=== PATIENT | female | born 1990 | race Caucasian/White ===

== ENCOUNTER → 2019-07-05 09:00 | Outpatient (CLI) | payer OTHER, SELFPAY ==
[2019-07-04 10:25] VITALS: BMI 46.4
[2019-07-05 11:14] LABS: Cholesterol 158 mg/dL (200); Estradiol 37.2 pg/mL; Glucose 80 mg/dL (74-106); High Density Lipoprotein 43 mg/dL; Prolactin 6.8 ng/mL; Thyroid Stim Hormone (TSH) 1.79 uIU/mL (0.358-3.74); Triglycerides 83 mg/dL; Very Low Density Lipoprotein 17 mg/dL (5-40)
== END ==
PROVIDERS: Family Provider Family Medicine; PCP Family Medicine; Referring Provider Nurse Practitioner Women's Health; Visit Provider Nurse Practitioner Women's Health
DX: N97.0 Female infertility associated with anovulation (principal); E66.9 Obesity, unspecified
CPT/HCPCS: 36415; 80061; 82670; 82947; 83036; 84146; 84443

== ENCOUNTER → 2019-07-25 14:04 | Outpatient (CLI) | payer OTHER, SELFPAY ==
[2019-07-25 13:32] VITALS: BMI 46.4
[2019-07-29 16:45] LABS: HPV Reflexed? NOT INDICATED
== END ==
PROVIDERS: Family Provider Family Medicine; PCP Family Medicine; Referring Provider Nurse Practitioner Women's Health; Visit Provider Nurse Practitioner Women's Health
DX: Z12.4 Encounter for screening for malignant neoplasm of cervix (principal)
CPT/HCPCS: 88175; G0145

== ENCOUNTER 2019-08-24 06:53 | Emergency (ER) | payer OTHER, SELFPAY ==
[2019-07-25 13:32] VITALS: BMI 46.4
[2019-08-24 06:54] VITALS: BP 140/102; PULSE 96; RESP 16; TEMP 36.8; O2SAT 100; BMI 45.9
--- NOTE | 2019-08-24 07:05 | US_ITS ---
STUDY: FIRST TRIMESTER OBSTETRICAL ULTRASOUND REASON FOR EXAM: Female, 28 years old bleeding, LMP: 07/03/2019 TECHNIQUE: Transvaginal TECHNICAL QUALITY: Limited. Technically limited study with suboptimal measurements. PRIOR ULTRASOUND: None. FINDINGS: Gestational sac measures 5.2 x 7.6 x 4.9 mm. A computer-generated gestational age is not provided. There is a visualized yolk sac. The yolk sac measures . The placenta is non-visualized. A live embryo was not visualized. A pole is not seen. The estimated gestation age (EGA) by LMP is 7 weeks, 3 days. The estimated date of delivery (THAD) by LMP is 04/08/2020. The uterus measures 8.9 x 5.0 x 5.0 cm.. There is no demonstrated uterine fibroid. The cervix is closed. The right ovary measures 2.8 x 2.8 x 2.0 cm. Is a right ovarian cyst measuring 1.5 x 1.5 x 1.2 cm . There is no visualized right adnexal mass or complex lesion. The left ovary is nonvisualized. There is a adjacent focal area of low-attenuation measuring 0.7 x 0.5 cm adjacent to the gestational sac compatible with small subchorionic hemorrhage. There is minimal fluid in the cul de sac. US/Transvaginal w/Preg US IMPRESSION: Technically limited, Limited study, limited measurements. Within the uterus there is a intrauterine early gestational sac present some with early without yolk sac yet. The location is slightly low lying.. There is a trace focus of echogenicity within the gestational sac. Recommend follow-up in 5-7 days or as clinically appropriate to evaluate for viability. Corporal luteal right ovarian cyst. Small subchorionic hemorrhage. Electronically Signed: Tamie Simpson MD at 11:02 EST Tel , Service support ,
--- NOTE | 2019-08-24 07:07 | ED.DCSUM_ITS ---
- ER Visit Summary Date of Service: 08/24/19 Chief Complaint: [Vaginal bleeding] History of Present Illness: The patient is a 28 F [presents with complaint of vaginal bleeding that started initially last evening with some mild spotting. Patient states this morning she had heavier bright red bleeding with a bout a quarter sized clot. She describes just a minimal suprapubic discomfort. She denies urinary symptoms. She denies fever. Patient thinks she is about 7 weeks . Patient believes her last menstrual period was July 03. Patient is G1, P0. She has not had any care. Patient has been taking folic acid and vitamins. Patient does have a seizure disorder and is c urrently on Keppra.] Physical Examination: [HEENT-PERRLA, EOMI. Cranial nerves II through XII grossly intact. TMs clear. Mucous membranes moist. No adenopathy. Cardiovascular-regular rate and rhythm without murmur or ectopy Lungs-clear to auscultation, chest wall stable without crepitus or subcu emphysema Abdomen-normoactive bowel sounds, soft. Patient has some mild tenderness over the suprapubic region. There is no rebound, rigidity, or peritoneal signs. Extremities-intact ?4, normal range of motion, normal pulses, atraumatic] Test Results: [CBC with differential white of 8.9, hemoglobin 12.7, hematocrit 40, platelets 220. Urinalysis was normal. Quantitative hCG was 1571. Type and Rh was A+. Pelvic ultrasound obtained showed an intrauterine gestation however no pole seen. There is minimal fluid in the cul-de-sac.] Emergency Department Course and Treatment: [Patient had an IV line established on arrival. Case was discussed with Dr. Arias Ybarra] who asked that patient follow-up with your office for repeat quantitative hCG in 48 hours and office visit within the next 3 to 5 days. Treatment Plan: [Follow-up with [facility] and repeat quant in 48 hours. I advised patient on bleeding precautions and if she should go through more than 2 pads an hour for 2 consecutive hours or if she should become symptomatic in any way patient to return to the emergency department.] Disposition: [Discharged home in stable condition.] Impression: [Threatened First trimester bleeding] This note was generated with [employer] software. It may contain incorrect words, spelling, and punctuation that were not noted in review of the chart prior to signing ED Disposition - Plan for ED Patient: Referrals: Beatriz De La Garza MD [Primary Care Provider] -
[2019-08-24] MEDS: 0.9% Normal Saline 1,000 ML 150 ML IV (07:46)
[2019-08-24 07:51] LABS: Bacteria 0 SEEN /hpf (None Seen); Mucous, Urine 0 SEEN /hpf (<or=2+); White Blood Cells 0 SEEN /hpf (0-5)
[2019-08-24 07:52] LABS: Color, Urine Yellow (Yellow); Glucose, Dipstick Normal (Normal); Ketone-Dipstick Negative (Negative); Leukocyte Esterase-Dipstick Negative /ul (Negative); Nitrite-Dipstick Negative (Negative); Occult Blood-Urine 250 /ul (Negative); Protein-Dipstick Negative (Negative); Specific Gravity, Urine 1.005 (1.002-1.030); Urine Bilirubin Dipstick Negative (Negative); Urine Clarity Clear (Clear); Urine Urobilinogen Normal (Normal)
[2019-08-24 08:02] LABS: Red Blood Cells-Urine 0-5 SEEN /hpf (0-5); Squamous Epithelial Cells - UA 0-5 SEEN /hpf (5-10)
[2019-08-24 08:27] LABS: Absolute Lymphocyte Count 1.77 X10^3/uL (0.83-4.51); Absolute Neutrophil Count 6.6 X10^3/uL (2.0-7.7); Basophil# 0.03 X10^3/uL; Basophil% 0.3 % (0-1); Eosinophil# 0.13 X10^3/uL; Eosinophils% 1.5 % (0-5); Hemoglobin 12.7 g/dL (12.0-15.0); Lymphocyte # 1.77 X10^3/ul (4.0); Lymphocyte % 19.9 % (19-41); Mean Corp Hgb Conc 31.8 g/dL (32-36); Mean Corpuscular Hgb 26.8 pg (27.0-32.0); Mean Corpuscular Volume 84.4 fL (81-99); Mean Platelet Vol. 10.8 fl (6.2-12.0); Monocyte# 0.36 X10^3/uL; Monocyte% 4.1 % (0-10); NRBC Flagged by Analyzer 0 % (0-5); Neutrophil # 6.57 X10^3/uL (2.7-7.7); Platelet Count 220 K/mm3 (150-450); RBC Distribution Width SD 45.6 fl (35.1-43.9); Red Blood Count 4.74 M/mm3 (4.2-5.4); White Blood Count 8.9 K/mm3 (4.4-11.0)
[2019-08-24 09:16] LABS: hCG Titer Quant., Serum 1571 mIU/mL (1-3)
--- NOTE | 2019-08-24 10:40 | ED.DEP ---
ED Disposition - Plan for ED Patient: Instructions: POSSIBLE MISCARRIAGE (Threatened ) Referrals: Beatriz De La Garza MD [Primary Care Provider] - Ariadne Luz MD [STAFF PHYSICIAN] - 3-5 Days
== END 2019-08-24 10:52 | disposition home or self-care (01) ==
LOC: ED 07:10
PROVIDERS: Emergency Provider Emergency Medicine; Family Provider Family Medicine; PCP Family Medicine
DX: O20.0 Threatened abortion (principal); Z3A.01 Less than 8 weeks gestation of pregnancy; O99.351 Diseases of the nervous system complicating pregnancy, first trimester; G40.909 Epilepsy, unspecified, not intractable, without status epilepticus
CPT/HCPCS: 76817; 81001; 84702; 85025; 86900; 86901; 99283; J7030; A4216

== ENCOUNTER → 2019-08-26 16:24 | Outpatient (CLI) | payer OTHER, SELFPAY ==
[2019-08-24 06:54] VITALS: BMI 45.9
[2019-08-26 18:07] LABS: hCG Titer Quant., Serum 162 mIU/mL (1-3)
== END ==
PROVIDERS: Family Provider Family Medicine; PCP Family Medicine; Referring Provider Nurse Practitioner Women's Health; Visit Provider Nurse Practitioner Women's Health
DX: O20.0 Threatened abortion (principal)
CPT/HCPCS: 36415; 84702

== ENCOUNTER → 2019-09-05 11:40 | Outpatient (CLI) | payer OTHER, SELFPAY ==
[2019-08-24 06:54] VITALS: BMI 45.9
[2019-09-05 13:21] LABS: hCG Titer Quant., Serum 3 mIU/mL (1-3)
== END ==
PROVIDERS: Family Provider Family Medicine; PCP Family Medicine; Referring Provider Nurse Practitioner Women's Health; Visit Provider Nurse Practitioner Women's Health
DX: O03.9 Complete or unspecified spontaneous abortion without complication (principal)
CPT/HCPCS: 36415; 84702

== ENCOUNTER → 2019-09-15 15:28 | Outpatient (CLI) | payer OTHER, SELFPAY ==
[2019-09-15 15:03] VITALS: BMI 45.9
[2019-09-22 20:07] LABS: Dilute Prothrombin Time (dPT) 42.1 sec (0.0-55.0); Dilute Russell Viper Venom 37.9 sec (0.0-47.0); PTT-LA 40.2 sec (0.0-51.9); Protein C Antigen 82 % (60-150); Protein C, Functional 95 % (73-180); Thrombin Time 15.9 sec (0.0-23.0); dPT Confirm Ratio 1.15 Ratio (0.00-1.40)
[2019-09-22 20:48] LABS: Antithrombin 3 Function 81 % (75-135); Interpretation Comment: (.); Protein S, Free 77 % (57-157); Protein S, Funtional 65 % (63-140); Protein S, Total 100 % (60-150)
== END ==
PROVIDERS: Family Provider Family Medicine; PCP Family Medicine; Referring Provider Nurse Practitioner Women's Health; Visit Provider Nurse Practitioner Women's Health
DX: Z86.718 Personal history of other venous thrombosis and embolism (principal)
CPT/HCPCS: 36415; 81241; 85300; 85302; 85303; 85305; 85306

== ENCOUNTER → 2019-11-28 12:39 | Outpatient (CLI) | payer OTHER, SELFPAY ==
[2019-09-15 15:03] VITALS: BMI 45.9
--- NOTE | 2019-11-28 12:45 | CT_ITS ---
STUDY: CT BRAIN AND SINUSES WITHOUT CONTRAST REASON FOR EXAM: Female, 29 years old. SINUSITIS, LEFT SIDE SINUS CONGESTION RADIATION DOSAGE (If Supplied By Facility): CTDIvol = ( 33.06 ) mGy, DLP = ( 738.81 ) mGycm TECHNIQUE: Transaxial CT imaging of the brain was performed without administration of contrast. Individualized dose optimization techniques were used for this CT. COMPARISON: No relevant priors. FINDINGS: CT BRAIN Normal soft tissue structures. Normal calvarium. Normal size ventricles and extra-axial spaces for the patient''s age. Normal white matter tracts of the cerebral hemispheres. Normal basal ganglia and thalami. Normal brainstem. Normal cerebellum. There is no intracranial hemorrhage. There are no findings of an acute ischemic infarction. CT SINUSES Post Surgical Changes: None. Frontal Sinus and Recess: Normal aeration without mucosal inflammatory disease. Ethmoidal Sinuses: Normal aeration without mucosal inflammatory disease. Maxillary Sinuses: There is a 2.1 cm x 1.7 cm mucosal retention cyst or polyp in the inferior aspect of the right maxillary sinus. Partial opacification of the left maxillary sinus posteriorly with an air-fluid level. Ostiomeatal Complex: Partial obstruction of the ostiomeatal complex on the right side due to mucosal hypertrophy. Sphenoid Sinus: Mild mucosal thickening along the left sphenoid sinus. Sphenoethmoidal Recess: Clear. Nasal Turbinate (Right): Middle Turbinate (Right): Normal. Middle Turbinate (Left): Normal. Inferior Turbinate (Right): Normal. Inferior Turbinate (Left): Normal. Nasal Septum: Midline. Nasal Airway: Clear. Cri biform Plate / Anterior Cranial Fossa: Normal. Orbits: Normal. CT/Sinus/Facial Bone IMPRESSION: Mucosal retention cyst/polyp in the right maxillary sinus with the air-fluid level in the left maxillary sinus. Mucosal thickening of the left sphenoid sinus. Compromise of the right ostomy to contact you to mucosal hypertrophy. Electronically Signed: Nicholas Pichardo, at 13:08 EST , Service support ,
== END ==
PROVIDERS: PCP Family Medicine; Referring Provider Otolaryngology; Visit Provider Otolaryngology
DX: J32.9 Chronic sinusitis, unspecified (principal)
CPT/HCPCS: 70486

== ENCOUNTER 2020-02-16 20:59 | Emergency (ER) | payer BC, SELFPAY ==
[2019-12-21 13:25] VITALS: BMI 45.9
[2020-02-16 21:00] VITALS: BP 119/82; PULSE 78; RESP 15; TEMP 36.6; O2SAT 98; BMI 46.8
--- NOTE | 2020-02-16 21:11 | ED.VISSUMM ---
- ER Visit Summary Date of Service: 02/16/20 Chief Complaint: Laceration History of Present Illness: The patient is a 29 F right-hand dominant. Cut the tip off her right small finger. Tetanus is up-to-date. Physical Examination: Small avulsion, 3 mm, round Test Results: None performed Emergency Department Course and Treatment: Wound was cleaned. Gelfoam applied. Wound care instructions. Outpatient follow-up. Treatment Plan: As above Disposition: Discharge Impression: Right small fingertip avulsion This note was generated with [employer] dictation software. It may contain incorrect words, spelling, and punctuation that were not noted in review of the chart prior to signing ED Disposition - Plan for ED Patient: Referrals: Beatriz De La Garza MD [Primary Care Provider] -
--- NOTE | 2020-02-16 21:13 | ED.DEP ---
ED Disposition - Plan for ED Patient: Instructions: ED Scar Tips to Minimize Referrals: Beatriz De La Garza MD [Primary Care Provider] -
[2020-02-16] MEDS: Gelatin Sponge Absorbable 50cm (1) 1 EACH TP (21:14)
== END 2020-02-16 21:22 | disposition home or self-care (01) ==
LOC: ED 21:09
PROVIDERS: Emergency Provider Emergency Medicine; PCP Family Medicine
DX: S61.306D Unspecified open wound of right little finger with damage to nail, subsequent encounter (principal); W45.8XXD Other foreign body or object entering through skin, subsequent encounter
CPT/HCPCS: 99282

== ENCOUNTER → 2020-05-11 17:32 | Outpatient (CLI) | payer BC, SELFPAY ==
[2020-05-10 10:27] VITALS: BMI 46.8
[2020-05-11 18:27] LABS: Progesterone Level 13.59 ng/mL (See Comment)
== END ==
PROVIDERS: Nurse Practitioner Women's Health; PCP Family Medicine; Referring Provider Obstetrics & Gynecology; Visit Provider Obstetrics & Gynecology
DX: N92.0 Excessive and frequent menstruation with regular cycle (principal)
CPT/HCPCS: 36415; 84144

== ENCOUNTER → 2020-05-17 10:58 | Outpatient (CLI) | payer BC, SELFPAY ==
[2020-05-10 10:27] VITALS: BMI 46.8
--- NOTE | 2020-05-17 11:01 | US_ITS ---
STUDY: ULTRASOUND OF THE FEMALE PELVIS - COMPLETE REASON FOR EXAM: Female, 29 years old. MENORRHAGIA LMP: 04/23/2020. TECHNIQUE: Transabdominal and Transvaginal TECHNICAL QUALITY: Adequate. COMPARISON: Comparison is made with prior study 08/24/2019. FINDINGS: The uterus is anteverted and is tilted to the left side of the pelvis. The uterus measures 9.1 cm x 6 cm x 5.1 cm. There is a Nabothian cyst of the cervix. The endometrium is thickened and measures 17 mm in thickness, and is hyperechoic. There is no demonstrated endometrial mass. There is no demonstrated myometrial mass. I.U.D. - The patient does not have an I.U.D. The right ovary is visualized. The right ovary measures 3.2 cm x 3 cm x 2.2 cm. There is no right ovarian cyst or ovarian mass. There is no visualized right adnexal mass or complex lesion. There is normal arterial and normal venous vascularity. The left ovary is non-visualized. There is no fluid in the cul-de-sac. The pre void volume of the bladder was 779 ml. US/Transvaginal Non- IMPRESSION: Thickened endometrium. Electronically Signed: Nicholas Pichardo, at 14:51 EDT , Service support ,
--- NOTE | 2020-05-17 11:01 | US_ITS ---
STUDY: ULTRASOUND OF THE FEMALE PELVIS - COMPLETE REASON FOR EXAM: Female, 29 years old. MENORRHAGIA LMP: 04/23/2020. TECHNIQUE: Transabdominal and Transvaginal TECHNICAL QUALITY: Adequate. COMPARISON: Comparison is made with prior study 08/24/2019. FINDINGS: The uterus is anteverted and is tilted to the left side of the pelvis. The uterus measures 9.1 cm x 6 cm x 5.1 cm. There is a Nabothian cyst of the cervix. The endometrium is thickened and measures 17 mm in thickness, and is hyperechoic. There is no demonstrated endometrial mass. There is no demonstrated myometrial mass. I.U.D. - The patient does not have an I.U.D. The right ovary is visualized. The right ovary measures 3.2 cm x 3 cm x 2.2 cm. There is no right ovarian cyst or ovarian mass. There is no visualized right adnexal mass or complex lesion. There is normal arterial and normal venous vascularity. The left ovary is non-visualized. There is no fluid in the cul-de-sac. The pre void volume of the bladder was 779 ml. US/Pelvic (Non ) IMPRESSION: Thickened endometrium. Electronically Signed: Nicholas Pichardo, at 14:51 EDT , Service support ,
== END ==
PROVIDERS: PCP Family Medicine; Referring Provider Nurse Practitioner Women's Health; Visit Provider Nurse Practitioner Women's Health
DX: N92.0 Excessive and frequent menstruation with regular cycle (principal)
CPT/HCPCS: 76830; 76856

== ENCOUNTER → 2020-06-01 17:14 | Outpatient (CLI) | payer BC, SELFPAY ==
[2020-05-10 10:27] VITALS: BMI 46.8
== END ==
PROVIDERS: PCP Family Medicine
DX: G40.319 Generalized idiopathic epilepsy and epileptic syndromes, intractable, without status epilepticus (principal)
CPT/HCPCS: 36415; 80177

== ENCOUNTER → 2020-06-28 17:12 | Outpatient (CLI) | payer BC, SELFPAY ==
[2020-06-28 15:02] VITALS: BMI 44.1
[2020-06-28 17:44] LABS: Absolute Lymphocyte Count 2.75 X10^3/uL (0.83-4.51); Absolute Neutrophil Count 9.4 X10^3/uL (2.0-7.7); Basophil# 0.03 X10^3/uL; Basophil% 0.2 % (0-1); Eosinophils% 1.5 % (0-5); Hematocrit 38.1 % (37-47); Hemoglobin 12.4 g/dL (12.0-15.0); Lymphocyte # 2.75 X10^3/ul (4.0); Lymphocyte % 21.3 % (19-41); Mean Corp Hgb Conc 32.5 g/dL (32-36); Mean Corpuscular Hgb 28.1 pg (27.0-32.0); Mean Corpuscular Volume 86.2 fL (81-99); Mean Platelet Vol. 10.8 fl (6.2-12.0); Monocyte# 0.52 X10^3/uL; NRBC Flagged by Analyzer 0 % (0-5); Neutrophil % 72.7 % (47-70); Platelet Count 239 K/mm3 (150-450); RBC Distribution Width CV 14.2 % (11.6-14.6); RBC Distribution Width SD 44.4 fl (35.1-43.9); Red Blood Count 4.42 M/mm3 (4.2-5.4); White Blood Count 12.9 K/mm3 (4.4-11.0)
[2020-06-28 18:38] LABS: Amphetamine Urine VISTA NEGATIVE (<1000 ng/mL); Barbiturate Urine VISTA NEGATIVE (< 200 ng/mL); Benzodiazepine Urine VISTA NEGATIVE (< 200 ng/mL); Cocaine Urine VISTA NEGATIVE (< 300 ng/mL); Ecstacy Urine VISTA NEGATIVE (< 500 ng/mL); Methadone Urine VISTA NEGATIVE (< 300 ng/mL); PCP Urine VISTA NEGATIVE (< 25 ng/mL); THC Urine VISTA NEGATIVE (< 50 ng/mL); Vista UDS pH Range 4
[2020-06-28 19:38] LABS: Glucose Challenge Gest 1H 50g 103 mg/dL (70-140)
[2020-06-29 09:45] LABS: HIV - WCH Non-Reactive (Nonreactive); Hepatitis B Surface Antigen Non-Reactive (Nonreactive); Hepatitis C Antibody Non-Reactive (Nonreactive); Rubella IgG 274.6 IU/mL
[2020-07-01 03:07] LABS: Chlamydia By Nucleic Acid AMP Negative (Negative)
[2020-07-01 04:31] LABS: Rapid Plasmin Reagin (RPR) NONREACTIVE (NONREACTIVE)
[2020-07-01 08:24] LABS: Gonococcus By Nucleic Acid AMP Negative (Negative)
== END ==
PROVIDERS: PCP Family Medicine; Referring Provider Obstetrics & Gynecology; Visit Provider Obstetrics & Gynecology
DX: G40.309 Generalized idiopathic epilepsy and epileptic syndromes, not intractable, without status epilepticus (principal)
CPT/HCPCS: 36415; 80177; 80307; 82950; 85025; 86592; 86703; 86762; 86803; 86850; 86900; 86901; 87086; 87088; 87340; 87491; 87591

== ENCOUNTER → 2020-07-12 11:00 | Outpatient (CLI) | payer BC, SELFPAY ==
[2020-06-28 15:02] VITALS: BMI 44.1
[2020-07-12 12:08] LABS: NATERA MAILED SPECIMEN
== END ==
PROVIDERS: PCP Family Medicine; Referring Provider Obstetrics & Gynecology; Visit Provider Obstetrics & Gynecology
DX: Z34.81 Encounter for supervision of other normal pregnancy, first trimester (principal)
CPT/HCPCS: 36415

== ENCOUNTER → 2020-08-06 17:12 | Outpatient (CLI) | payer BC, SELFPAY ==
[2020-07-26 13:13] VITALS: BMI 44.1
== END ==
PROVIDERS: PCP Family Medicine
DX: G40.319 Generalized idiopathic epilepsy and epileptic syndromes, intractable, without status epilepticus (principal)
CPT/HCPCS: 36415; 80177

== ENCOUNTER 2020-08-24 17:22 | Outpatient (RCR) | payer BC, SELFPAY ==
[2020-08-23 10:07] VITALS: BMI 43.8
[2020-08-30 04:21] LABS: KEPPRA (LEVETIRACETAM) 16.2 ug/mL (10.0-40.0)
== END 2020-08-24 18:00 | disposition home or self-care (01) ==
LOC: LAB 17:22
PROVIDERS: PCP Family Medicine
DX: G40.309 Generalized idiopathic epilepsy and epileptic syndromes, not intractable, without status epilepticus (principal)
CPT/HCPCS: 36415; 80177

== ENCOUNTER 2020-09-22 17:35 | Outpatient (RCR) | payer BC, SELFPAY ==
[2020-08-23 10:07] VITALS: BMI 43.8
[2020-09-20 10:48] VITALS: BMI 44.9
[2020-09-25 15:00] LABS: KEPPRA (LEVETIRACETAM) 13.2 ug/mL (10.0-40.0)
== END 2020-09-22 18:00 | disposition home or self-care (01) ==
LOC: LAB 17:35
PROVIDERS: PCP Family Medicine
DX: G40.309 Generalized idiopathic epilepsy and epileptic syndromes, not intractable, without status epilepticus (principal)
CPT/HCPCS: 36415; 80177

== ENCOUNTER → 2020-10-18 11:19 | Outpatient (CLI) | payer OTHER, SELFPAY ==
[2020-10-18 10:10] VITALS: BMI 45.6
--- NOTE | 2020-10-18 11:29 | VDLE_ITS ---
Reason For Study: LLE pain RIGHT LEFT CFV is compressible, spontaneous, phasic, GSV is normal. competent and demonstrates normal CFV is compressible, spontaneous, phasic, augmentation. competent, and demonstrates normal Procedure augmentation. This is a venous duplex using B-mode, color FV is compressible, spontaneous, phasic, flow and spectral Doppler. competent and demonstrates normal Exam performed in department. augmentation. The exam was diagnostic. POP V is compressible, spontaneous, phasic, A preliminary report was called and/or faxed competent and demonstrates normal to DR. Cheikh Monsivais @ [phone] @ 11:50 am. augmentation. T/P Trunk is compressible. PTV is compressible. LT PerV is compressible. Interpretation Summary There is no evidence of left lower extremity deep vein thrombosis. Left great saphenous vein appears patent and compressible segmentally. Normal flow patterns right common femoral vein Ordering Physician: Renee Monsivais Referring Physician: Beatriz De La Garza Performed By: Hilda Bailon, LUDA, RVT
[2020-10-18 11:41] LABS: Absolute Lymphocyte Count 2.47 X10^3/uL (0.83-4.51); Absolute Neutrophil Count 9.4 X10^3/uL (2.0-7.7); Basophil# 0.03 X10^3/uL; Basophil% 0.2 % (0-1); Eosinophil# 0.14 X10^3/uL; Eosinophils% 1.1 % (0-5); Hemoglobin 11.9 g/dL (12.0-15.0); Lymphocyte # 2.47 X10^3/ul (4.0); Lymphocyte % 19.4 % (19-41); Mean Corpuscular Hgb 30.9 pg (27.0-32.0); Mean Corpuscular Volume 90.9 fL (81-99); Mean Platelet Vol. 10.3 fl (6.2-12.0); Monocyte# 0.59 X10^3/uL; Monocyte% 4.6 % (0-10); NRBC Flagged by Analyzer 0 % (0-5); Neutrophil # 9.38 X10^3/uL (2.7-7.7); Neutrophil % 73.5 % (47-70); Platelet Count 239 K/mm3 (150-450); RBC Distribution Width CV 15.1 % (11.6-14.6); RBC Distribution Width SD 48.9 fl (35.1-43.9); Red Blood Count 3.85 M/mm3 (4.2-5.4); White Blood Count 12.8 K/mm3 (4.4-11.0)
[2020-10-18 11:59] LABS: Glucose Challenge Gest 1H 50g 81 mg/dL (70-140)
== END ==
PROVIDERS: PCP Family Medicine; Referring Provider Obstetrics & Gynecology; Visit Provider Obstetrics & Gynecology
DX: M79.605 Pain in left leg (principal); Z86.718 Personal history of other venous thrombosis and embolism; Z13.1 Encounter for screening for diabetes mellitus; O09.90 Supervision of high risk pregnancy, unspecified, unspecified trimester
CPT/HCPCS: 36415; 82950; 85025; 93971

== ENCOUNTER 2020-10-29 17:07 | Outpatient (RCR) | payer OTHER, SELFPAY ==
[2020-09-20 10:48] VITALS: BMI 44.9
[2020-10-18 10:10] VITALS: BMI 45.6
[2020-11-02 20:14] LABS: KEPPRA (LEVETIRACETAM) 13.9 ug/mL (10.0-40.0)
== END 2020-10-29 18:00 | disposition home or self-care (01) ==
LOC: LAB 17:07
PROVIDERS: PCP Family Medicine
DX: G40.309 Generalized idiopathic epilepsy and epileptic syndromes, not intractable, without status epilepticus (principal)
CPT/HCPCS: 36415; 80177

== ENCOUNTER → 2020-12-06 08:01 | Outpatient (CLI) | payer OTHER, SELFPAY ==
[2020-11-22 11:04] VITALS: BMI 46.0
== END ==
PROVIDERS: PCP Family Medicine; Visit Provider Obstetrics & Gynecology
DX: O99.210 Obesity complicating pregnancy, unspecified trimester (principal); O99.350 Diseases of the nervous system complicating pregnancy, unspecified trimester; G40.909 Epilepsy, unspecified, not intractable, without status epilepticus; Z3A.00 Weeks of gestation of pregnancy not specified

== ENCOUNTER 2020-12-06 17:29 | Outpatient (RCR) | payer OTHER, SELFPAY ==
[2020-11-08 09:54] VITALS: BMI 45.8
[2020-12-06 08:33] VITALS: BMI 46.1
[2020-12-10 16:36] LABS: KEPPRA (LEVETIRACETAM) 13.6 ug/mL (10.0-40.0)
== END 2020-12-06 18:00 | disposition home or self-care (01) ==
LOC: LAB 17:29
PROVIDERS: PCP Family Medicine
DX: G40.319 Generalized idiopathic epilepsy and epileptic syndromes, intractable, without status epilepticus (principal)
CPT/HCPCS: 36415; 80177

== ENCOUNTER → 2020-12-27 10:32 | Outpatient (CLI) | payer OTHER, SELFPAY ==
[2020-12-27 09:44] VITALS: BMI 41.2
[2020-12-27 11:07] LABS: Protein, Urine (Random) 10.4 mg/dL (<11.9); Protein:Creat Ratio 83 mg/g CRE (0-200)
== END ==
PROVIDERS: PCP Family Medicine; Referring Provider Nurse Practitioner Women's Health; Visit Provider Nurse Practitioner Women's Health
DX: O09.90 Supervision of high risk pregnancy, unspecified, unspecified trimester (principal); O26.899 Other specified pregnancy related conditions, unspecified trimester; R51.9 Headache, unspecified; Z3A.00 Weeks of gestation of pregnancy not specified
CPT/HCPCS: 82570; 84156

== ENCOUNTER 2020-12-31 17:18 | Outpatient (RCR) | payer OTHER, SELFPAY ==
[2020-12-27 09:44] VITALS: BMI 41.2
[2021-01-07 05:17] LABS: KEPPRA (LEVETIRACETAM) 11.8 ug/mL (10.0-40.0)
== END 2020-12-31 18:00 | disposition home or self-care (01) ==
LOC: LAB 17:18
PROVIDERS: PCP Family Medicine
DX: G40.319 Generalized idiopathic epilepsy and epileptic syndromes, intractable, without status epilepticus (principal)
CPT/HCPCS: 36415; 80177

== ENCOUNTER → 2021-01-03 13:54 | Outpatient (CLI) | payer OTHER, SELFPAY ==
[2021-01-03 09:00] VITALS: BMI 41.5
== END ==
PROVIDERS: PCP Family Medicine; Visit Provider Obstetrics & Gynecology
DX: Z34.93 Encounter for supervision of normal pregnancy, unspecified, third trimester (principal); Z3A.36 36 weeks gestation of pregnancy
CPT/HCPCS: 87081

== ENCOUNTER 2021-01-07 11:20 | Outpatient (CLI) | payer OTHER, SELFPAY ==
[2021-01-03 09:00] VITALS: BMI 41.5
[2021-01-07 12:27] VITALS: BP 140/65; PULSE 87
[2021-01-07 13:25] VITALS: BMI 47.3
[2021-01-07 13:27] VITALS: BP 126/59; PULSE 80
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
== END 2021-01-07 14:20 | disposition home or self-care (01) ==
LOC: WPOUT 11:30 → WP 11:33
PROVIDERS: PCP Family Medicine; Referring Provider Obstetrics & Gynecology; Visit Provider Obstetrics & Gynecology
DX: Z04.3 Encounter for examination and observation following other accident (principal)
CPT/HCPCS: 59025; 59050; 99218; G0378

== ENCOUNTER → 2021-01-17 13:59 | Outpatient (CLI) | payer OTHER, SELFPAY ==
[2020-11-22 11:04] VITALS: BMI 46.0
[2021-01-10 10:29] VITALS: BMI 46.8
[2021-01-17 10:52] VITALS: BMI 47.7
== END ==
PROVIDERS: Nurse Practitioner Women's Health; PCP Family Medicine; Visit Provider Obstetrics & Gynecology
DX: Z34.90 Encounter for supervision of normal pregnancy, unspecified, unspecified trimester (principal)
CPT/HCPCS: 87635; C9803; U0002

== ENCOUNTER 2021-01-22 18:55 | Inpatient (IN) | payer OTHER, SELFPAY ==
[2021-01-17 10:52] VITALS: BMI 47.7
[2021-01-22 19:46] VITALS: BMI 47.6
[2021-01-22] MEDS: Lactated Ringers 1,000 ML 50 ML IV (20:10)
[2021-01-22 20:18] LABS: Absolute Lymphocyte Count 2.28 X10^3/uL (0.83-4.51); Absolute Neutrophil Count 9.9 X10^3/uL (2.0-7.7); Basophil# 0.03 X10^3/uL; Basophil% 0.2 % (0-1); Eosinophil# 0.09 X10^3/uL; Eosinophils% 0.7 % (0-5); Hematocrit 34.3 % (37-47); Hemoglobin 11.5 g/dL (12.0-15.0); Lymphocyte # 2.28 X10^3/ul (4.0); Lymphocyte % 17.7 % (19-41); Mean Corp Hgb Conc 33.5 g/dL (32-36); Mean Corpuscular Hgb 29.9 pg (27.0-32.0); Mean Corpuscular Volume 89.3 fL (81-99); Mean Platelet Vol. 11.4 fl (6.2-12.0); Monocyte# 0.53 X10^3/uL; Monocyte% 4.1 % (0-10); NRBC Flagged by Analyzer 0 % (0-5); Neutrophil # 9.85 X10^3/uL (2.7-7.7); Neutrophil % 76.8 % (47-70); Platelet Count 228 K/mm3 (150-450); RBC Distribution Width CV 15.3 % (11.6-14.6); RBC Distribution Width SD 48.8 fl (35.1-43.9); Red Blood Count 3.84 M/mm3 (4.2-5.4); White Blood Count 12.9 K/mm3 (4.4-11.0)
[2021-01-22] MEDS: miSOPROStol 25 MCG TABLET PO (20:32)
[2021-01-22 20:39] VITALS: BP 116/71; PULSE 103; TEMP 36.3
[2021-01-22 20:40] VITALS: TEMP 36.5
[2021-01-22 20:42] VITALS: TEMP 36.6
[2021-01-23] VITALS (58 sets, daily range): BP systolic 108–147; BP diastolic 56–81; PULSE 62–107; TEMP 36.1–37.2; O2SAT 80–100
[2021-01-23] MEDS: miSOPROStol 25 MCG TABLET PO ×2 (00:38→04:41)
[2021-01-23] MEDS: 0.9% Normal Saline Single 100 ML IV.SOLN. INTRA-UTER (08:33)
--- NOTE | 2021-01-23 08:43 | HP.PCM_ITS ---
- Problem List (1) 36 weeks gestation of Status: Acute Comment: electronic covid test ordered 12/28/20 (scheduled for 01/17/21 at 1330) (2) Epilepsy Status: Acute Qualifiers: Comment: [facility]- , [facility], gets monthly bloodwork with them. no seizures x 7 years (3) History of tetanus, diphtheria, and acellular pertussis booster vaccination (Tdap) Status: Acute Comment: 11/08/20 (4) Hx of deep venous thrombosis Status: Acute Comment: while on OCP/post surgery. previously on xalrelto, plan lovenox in 40 BID in and . plan IOL 39 weeks. Having left leg pain 10/18 - LLE doppler neg (5) Lab test negative for COVID-19 virus Status: Acute (6) Obesity affecting Status: Acute Qualifiers: Comment: nl1 tm GCT, encouraged healthy weight gain. follows WW plan in maintenance. BMI 44 plan third trimester testing. (7) Status: Acute Qualifiers: Comment: carrier screening declined. NIPT low risk. declined ntd screening. NL anatomy- echo 10/12 nl anatomy completed. 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 Is patient in pain?: No Allergies latex Allergy (Mild, Verified 01/17/21 10:52) SKIN IRRITATION naproxen [From Aleve] Adverse Reaction (Intermediate, Verified 01/17/21 10:52) hives oxycodone [From Percocet] Adverse Reaction (Intermediate, Verified 01/17/21 10:52) Rash Medications B-complex with vitamin C 1 tablet PO DAILY 07/04/19 [History Confirmed 01/17/21] folic acid 1 mg tablet 4 mg PO DAILY tablet 07/04/19 [History Confirmed 01/17/21] Pnv No.95/Ferrous Fum/Folic AC [ Caplet] 1 each PO DAILY 08/24/19 [History Confirmed 01/17/21] lactobacillus combination no.8 3 billion cell capsule 3,000 mmu cells PO DAILY 12/21/19 [History Confirmed 01/17/21] levetiracetam 1,000 mg tablet 1,500 mg PO DAILY tablet 07/26/20 [History Confirmed 01/17/21] enoxaparin 40 mg/0.4 mL subcutaneous syringe 40 mg SC Q12H 30 Days #24 ml 11/22/20 [Rx Confirmed 01/17/21] famotidine 20 mg tablet 20 mg PO BID #60 tablet 12/20/20 [Rx Confirmed 01/17/21] Last Menstral Period: 04/23/20 Zika: Zika virus screening: Negative : No PFSH PFSH Medical History DVT (deep venous thrombosis) (Acute) Diarrhea (Acute) Epilepsy (Acute) Fatigue (Acute) Surgical History H/O foot surgery (Acute) History of placement of ear tubes (Acute) Umbilical hernia (Acute) Family History Grandfather Heart disease Asthma Social History (Updated 01/17/21 @ 11:[address] Ariadne Luz MD) Smoking Status: Never smoker alcohol intake: never substance use type: does not use caffeine: Yes what type of physical activity do you participate in: none seatbelt use: always do you feel safe at home: Yes additional social history: [employer], [email or web address]. 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 Pregancy History 1 Elective abortions Hx Para 0 Spontaneous abortions 1 Hx # Term Pregnancies Ectopic pregnancies Hx # Pregnancies Multiple births # of living children HPI 38 WK OB / NST : Details: MIRELA DAY is a 30 year old who presents for routine OB visit. if no spontnaeous labor plan IOL at 39 weeks for h/o dvt on lovenox 40 BID, will have last dose 24 hours prior to IOL, plan SCDs in labor OB Visit THAD Calculator Estimated Delivery Date Method Current WG Current Estimate 01/28/21 LMP (Certain) 38w 3d Other Estimates 01/28/21 Ultrasound #1 38w 3d Expected Delivery Route/Plan discussed possible IOL 39 weeks due to being on blood thinner Labor Preferences- CB/BF classes: yes labor support person: Akanksha labor intervention preferences: none pain management options preferred: epidural cut cord/dad catch: cord : yes PP control planned: undecided discussed possible routes of delivery and associated risks: [] special requests: [] Specific Issue/Plans flu vaccine: get at work tdap vaccine: given rhogam: na LARC form signed: yes movement and labor precautions reviewed. Problem list reviewed and updated with the most current plan of care details and appropriate orders placed. Relevant counseling for the gestational age provided. Continue routine care and follow up unless otherwise noted in visit notes/problem list details Initial Weight: 265 lb Date EGA Weight BP Urine Prot Glucose FHR FuHt Pres Dilation Effaced St Visit Note 06/28/20 9w 3d 259 lb (-6 lb) 257 lb (-8 lb) 170 SM- CRL- SM- CRL- 2.4cm cons with lmp 07/26/20 13w 3d 255 lb 6 oz (-9 lb 10 oz) 120/80 Negative Negative 160 SM- no vb cramping, discussed local skin reaction to lovenox. still continue injections. 08/23/20 17w 3d 255 lb 8 oz (-9 lb 8 oz) 124/80 Negative Negative 150 GP - no cramping, LOF, VB. Anatomy scan scheduled. 09/20/20 21w 3d 262 lb (-3 lb) 124/80 Negative Negative 150 SM- no vb lof good fm no regular ctx has fu anatomy scan 10/18/20 25w 3d 266 lb (+16 oz) 92/70 Negative Negative 150 25 GP - no LOF, VB, DFM, ctx. Reports left calf pain like when had DVT previously - LE dopplers ordered. Discussed TDAP next visit. GCT done today as AC measuring large on last US. 11/08/20 28w 3d 267 lb 6 oz (+2 lb 6 oz) 108/60 Trace Negative 146 28 MH-NO VB, LOF. Good FM. Denies concerns. tdap, larc. Reviewed normal 28 wk labs. Cont lovenox 11/22/20 30w 3d 268 lb (+3 lb) 124/88 Negative Negative 140 31 SM- no vb lof good fm no regular ctx 12/06/20 32w 3d 269 lb (+4 lb) Negative Negative SM- nst only doing well, us today 12/13/20 33w 3d 273 lb 4 oz (+8 lb 4 oz) 120/72 Negative Negative 150 MH NST only-reactive 12/20/20 34w 3d Negative Negative 140 GP - no ctx, LOF, VB, DFM. NST reactive. Pepcid increased to BID. 12/27/20 35w 3d 271 lb 4 oz (+6 lb 4 oz) 120/70 Negative Negative 150 MH-NST only reactive. C/O AJ X 3 days, responded to tylenol last pm. Also will respond to gatorade. Neg urine, nl BP. Urine protein/creatinine pending. Pre E S&S reviewed. 01/03/21 36w 3d 273 lb (+8 lb) 118/70 Trace Negative 140 36 0 SM- no vb lof good fm no reuglar ctx gbs done 01/10/21 37w 3d 273 lb (+8 lb) Negative Negative 140 37 Cephalic 1 40 -3 GP - no LOF, VB, DFM, ctx . Denies complaints. 01/17/21 38w 3d 278 lb (+13 lb) 112/70 ACOG First Trimester First Trimester: Desire for , Alcohol, Tobacco Cessation, Illicit/Recreational Drug/Substance Use, Intimate Partner Violence, Barriers to care, Unstable Housing, Communication Barriers, Environmental/Work Hazards, Anticipated Course of Care, Toxoplasmosis Precations, Use of Any medications, Sexual activity, Exercise, Dental Care, Sauna/Hot tub use, Seat Belt use, Childbirth classes/Hospital facilities, , Travel, Indications for US and Screening for Aneuploidy Second Trimester Second Trimester: Signs and Symptoms of Labor, Selecting a care provider, Reproductive Life Planning, Care Planning, Depression/Anxiety and Intimate Partner Violence; discussed Tobacco Cessation Third Trimester Third Trimester: Pain Management Plans, Labor support person(s), Immediate Larc, Movement Monitoring and Infant Feeding Yes ; discussed Trial of Labor after Counseling or discussed Circumcision preference Diagnostics Diagnostics Details: HIV: Urine Culture: Sequential Screen: NIPT Screen: ROS Const Reports system reviewed and no additional complaints, except as docu Card Reports system reviewed and no additional complaints, except as docu Resp Reports system reviewed and no additional complaints, except as docu GI Reports system reviewed and no additional complaints, except as docu, Reports nausea Reports system reviewed and no additional complaints, except as docu Musc Reports system reviewed and no additional complaints, except as docu Exam Const General: cooperative, healthy appearing, comfortable, anxious HENMT Head: normal to inspection Nose: external nose normal Face and sinus: normal facial exam Neck Neck: normal visual inspection, full ROM, no lymphadenopathy Thyroid: thyroid normal Chest Chest palpation & inspection: normal inspection of the chest Resp Effort & Inspection: normal respiratory effort GI Inspection: normal to inspection Palpation: soft, other (gravid uterus) Other: infant vertex and appropriate size for gestational age Other: Cervical Exam: Extrem General: pedal edema Office Procedures OB NST Non-Stress Test Indications for Monitoring: Yes Morbid obesity Heart Rate Baseline: 130 Heart Rate Variability: moderate Movement: Present Heart Rate Accelerations: Present Decelerations: Absent Contractions: Absent Impression: Yes Reactive Non-Stress Test Category 1 Assessment & Plan Problems 1. 36 weeks gestation of Z3A.36 electronic covid test ordered 12/28/20 (scheduled for 01/17/21 at 1330) 2. History of tetanus, diphtheria, and acellular pertussis booster vaccination (Tdap) Z92.29 11/08/20 3. Obesity affecting O99.210 nl1 tm GCT, encouraged healthy weight gain. follows WW plan in maintenance. BMI 44 plan third trimester testing. 4. 38 weeks gestation of Z3A.38 carrier screening declined. NIPT low risk. declined ntd screening. NL anatomy- echo 10/12 nl anatomy completed. 11/08, 12/20 nl growth 5. Supervision of high-risk O09.90 PRR THAD 01/28/21 boy jania Akanksha 6. Hx of deep venous thrombosis Z86.718 while on OCP/post surgery. previously on xalrelto, plan lovenox in 40 BID in and . plan IOL 39 weeks. Having left leg pain 1/ - LLE doppler neg 7. Epilepsy G40.909 neurologist- , on meds- Keppra, gets monthly bloodwork with them. no seizures x 7 years Plan Patient presents IOL, plan management for with cytotec then pit/FB. Pain management: plans epidural. GBS negative. Management of any complications: hold lovenox 24 hours prior to start of IOL I have reviewed the [facility] and made any clinically relevant updates. Orders Orders: OB NST Today O99.210 Coding Level of Care Code OB Routine Diagnoses 36 weeks gestation of Z3A.36 History of tetanus, diphtheria, and acellular pertussis booster vaccination (Tdap) Z92.29 Obesity affecting O99.210 38 weeks gestation of Z3A.38 ??Weeks of gestation: 38 weeks Supervision of high-risk O09.90 Hx of deep venous thrombosis Z86.718 Epilepsy G40.909 Additional Codes Non-Stress Test (44915) UPDATE- I have seen the patient and performed any clinically relevant updates to the history and physical exam. Ariadne Luz MD
--- NOTE | 2021-01-23 08:44 | PCM.PN.BLA ---
Progress Note fht 130 mod martha reactive isolated variable decels, resolved and now cat I tracing. s/p cytotec x 3 now pit pre protocol and fb placed. arom when able STROKE Vital Signs/Narrative: Vital Signs Temp Pulse BP 01/23/21 07:21 73 128/65 H 01/23/21 07:20 97.5 F L 01/23/21 04:53 72 127/58 H 01/23/21 04:52 97.0 F L
[2021-01-23] MEDS: LEVETIRACETAM 750 MG 1500 MG PO (09:00)
[2021-01-23] MEDS: Oxytocin 30 units/NS 500 ml 30 UNITS/500 ML IV.SOLN IV (10:01)
[2021-01-23] MEDS: Lactated Ringers 500 ML 999 ML IV ×2 (15:03→18:00)
[2021-01-23] MEDS: Acetaminophen 500 MG Tablet PO ×2 (16:33→23:23)
[2021-01-23] MEDS: fentaNYL-bupivacaine (epidural) 100 ML BAG EPIDURAL ×2 (16:35→21:47)
[2021-01-23] MEDS: Lactated Ringers 1,000 ML 50 ML IV (16:56)
[2021-01-23] MEDS: Mag Hydrox/Al Hydrox/Simeth 30 ML UDC PO (18:04)
[2021-01-23] MEDS: Amnioinfusion- 0.9% NS 1,000 ML IV.SOLN. INTRA-UTER (18:57)
[2021-01-23] MEDS: Folic Acid 1 MG Tablet 2 MG PO (20:34)
[2021-01-23] MEDS: LEVETIRACETAM 750 MG 2250 MG PO (20:35)
[2021-01-23] MEDS: Lactated Ringers 1,000 ML 200 ML IV (22:22)
[2021-01-23] MEDS: Ondansetron 4 MG/2 ML Vial IV (22:23)
[2021-01-24] VITALS (25 sets, daily range): BP systolic 114–151; BP diastolic 45–84; PULSE 63–100; RESP 16–18; TEMP 36.1–37.1; O2SAT 96–99
[2021-01-24] MEDS: Amnioinfusion- 0.9% NS 1,000 ML IV.SOLN. 1000 ML INTRA-UTER (02:15)
[2021-01-24] MEDS: Lactated Ringers 1,000 ML 200 ML IV ×2 (03:42→09:33)
[2021-01-24] MEDS: fentaNYL-bupivacaine (epidural) 100 ML BAG EPIDURAL ×2 (04:17→09:29)
[2021-01-24] MEDS: Ondansetron 4 MG/2 ML Vial IV (05:21)
[2021-01-24] MEDS: Acetaminophen 500 MG Tablet PO (05:33)
--- NOTE | 2021-01-24 05:33 | PCM.PN.BLA ---
Progress Note reviewed and FHT 130 category 1 tracing patient had adequate [place] units and now they have dropped down to 150 or less but palpate strong. Patient may change to 9 cm and then now has been 7 cm for 5 hours. Significant swelling of the cervix noted. Extensive counseling an discussion of induction of labor requirements including 24 hours of Pitocin and 18 hours of rupture membranes is options to patient versus proceeding with immediate . Patient requesting to avoid and proceed with expectant management. Will increase Pitocin per protocol, discussed with nursing may increase up to 26 milliunits as long as reassuring heart tones are present. Reviewed labor positions and felt to be adequate. Will give IV Benadryl due to cervical swelling and manual compression of cervix performed with contractions to reduce swelling. STROKE Vital Signs/Narrative: Vital Signs Temp Pulse BP Pulse Ox 01/24/21 05:26 71 145/76 H 01/24/21 05:25 97.7 F L 73 99 01/24/21 03:50 97.5 F L 65 136/67 H 99 01/24/21 02:23 78 131/72 H 01/24/21 02:22 97.0 F L 96
[2021-01-24] MEDS: 0.9% Saline Lock 10 ML Syringe IV (05:39)
[2021-01-24] MEDS: DiphenhydrAMINE 50 MG/ML Syringe IV (05:39)
[2021-01-24] MEDS: Lactated Ringers 500 ML 999 ML IV (06:57)
[2021-01-24] MEDS: proCHLORPERazine 10 MG/2 ML Vial IV (08:03)
[2021-01-24] MEDS: Folic Acid 1 MG Tablet 2 MG PO (08:38)
[2021-01-24] MEDS: LEVETIRACETAM 750 MG 1500 MG PO (08:40)
[2021-01-24] MEDS: Oxytocin 30 units/NS 500 ml 30 UNITS/500 ML IV.SOLN 334 UNITS IV (11:11)
[2021-01-24] MEDS: Acetaminophen 500 MG Tablet 1000 MG PO (20:50)
[2021-01-24] MEDS: Famotidine 20 MG Tablet PO (21:57)
[2021-01-24] MEDS: LEVETIRACETAM 750 MG 2250 MG PO (21:58)
[2021-01-25] MEDS: Enoxaparin 40 MG/0.4 ML Syringe SC ×2 (01:15→22:22)
[2021-01-25] MEDS: 0.9% Saline Lock 10 ML Syringe IV (01:16)
[2021-01-25 03:20] VITALS: BP 124/74; PULSE 76; RESP 18; TEMP 36.2
[2021-01-25 08:00] VITALS: BP 111/65; PULSE 73; RESP 16; TEMP 35.9
--- NOTE | 2021-01-25 08:09 | PN.OBGYN_ITS ---
Patient Problems: Active and Suspected Problems (Last Reviewed 01/17/21 @ 10:52 by Beatriz Villavicencio) Lab test negative for COVID-19 virus (Acute) 36 weeks gestation of (Acute) electronic covid test ordered 12/28/20 (scheduled for 01/17/21 at 1330) History of tetanus, diphtheria, and acellular pertussis booster vaccination (Tdap) (Acute) 11/08/20 Obesity affecting (Acute) nl1 tm GCT, encouraged healthy weight gain. follows WW plan in maintenance. BMI 44 plan third trimester testing. (Acute) carrier screening declined. NIPT low risk. declined ntd screening. NL anatomy- echo 10/12 nl anatomy completed. 11/08, 12/20 nl growth Supervision of high-risk (Acute) PRR THAD 01/28/21 boy jania Gomez Hx of deep venous thrombosis (Acute) while on OCP/post surgery. previously on xalrelto, plan lovenox in 40 BID in and . plan IOL 39 weeks. Having left leg pain 10/18 - LLE doppler neg Epilepsy (Acute) neurologist- , on meds- Kera, gets monthly bloodwork with them. no seizures x 7 years Subjective: Patient doing well without complaints. Tolerating PO. Ambulating and voiding without difficulty. feeding well with support. Denies chest pain, shortness of breath, calf pain/swelling, fevers, chills, lightheadedness. Feels wants to stay another night as wants support with breast feeding - Physical Exam Vitals/I&O's: Vital Signs Temp Pulse Resp BP Pulse Ox 96.7 F L 73 16 111/65 97 01/25/21 08:00 01/25/21 08:00 01/25/21 08:00 01/25/21 08:00 01/24/21 20:53 Oxygen Delivery Method Room Air Weight: 277 lb 8 oz Body Mass Index (BMI) 47.6 Intake and Output for Last 24 Hours 01/23/21 01/24/21 01/25/21 23:59 23:59 23:59 Intake Total 3614.98 / 3614.98 3501.70 / 3501.70 Output Total 1400 / 1400 2650 / 2650 Balance 2214.98 / 2214.98 851.70 / 851.70 General: Alert, Oriented x3 Abdomen: Soft, Non Tender, Non-Distended, - - FF below U Current Medications Acetaminophen (Acetaminophen 500 Mg Tablet) 1,000 mg PO Q8H PRN PRN PRN Reason: Pain Score 1-3 Last Admin: 01/24/21 20:50 Dose: 1,000 mg Documented by: Bisacodyl (Bisacodyl 10 Mg Suppository) 10 mg RC UD PRN PRN Reason: If no BM Dibucaine (Dibucaine 30 Gm Tube) 1 applic TOPICAL TID PRN PRN; Protocol PRN Reason: Discomfort Enoxaparin Sodium (Enoxaparin 40 Mg/0.4 Ml Syringe) 40 mg SC Q12 [facility] Last Admin: 01/25/21 01:15 Dose: 40 mg Documented by: Famotidine (Famotidine 20 Mg Tablet) 20 mg PO BID [facility] Last Admin: 01/24/21 21:57 Dose: 20 mg Documented by: Folic Acid (Folic Acid 1 Mg Tablet) [facility] Hydrocortisone (Hydrocortisone 2.5% Crm) 1 applic TOPICAL TID PRN PRN; Protocol PRN Reason: Discomfort Lactobacillus Acidophilus (Lactobacillus Acidophilus) 1 tablet PO DAILYUN[facility] Levetiracetam (Levetiracetam 750 Mg Tab.Er.24h) 2,250 mg PO QHS [facility] Last Admin: 01/24/21 21:58 Dose: 2,250 mg Documented by: Levetiracetam (Levetiracetam 750 Mg Tab.Er.24h) 1,500 mg PO DAILYUN[facility] Methylergonovine Maleate (Methylergonovine 0.2 Mg/Ml Ampul) 0.2 mg IM X1 PRN PRN Reason: Excess bleeding/uterine atony Naproxen (Naproxen 250 Mg Tablet) 500 mg PO Q8H PRN PRN PRN Reason: Pain Score 1-3 Ondansetron HCl (Ondansetron 4 Mg/2 Ml Vial) 4 mg IV Q4H PRN PRN PRN Reason: Nausea Multivit/Folic Acid/Iron ( Vits Tablet) 1 tablet PO DAILY@1200 [facility] Senna/Docusate Sodium (Senna/Docusate Sodium 1 Tablet) 1 - 2 tablet PO DAILY PRN PRN PRN Reason: Constipation Simethicone (Simethicone 80 Mg Tablet) 80 mg PO PCHS PRN PRN Reason: Indigestion/Stomach pain Sodium Chloride (0.9% Saline Lock 10 Ml Syringe) 5 - 15 ml IV UD PRN PRN Reason: SALINE FLUSH Last Admin: 01/25/21 01:16 Dose: 10 ml Documented by: Medical Necessity - Tobacco Use Smoking Status: Never smoker Assessment/Plan All Active Problems (Last Reviewed 01/17/21 @ 10:52 by Beatriz Villavicencio) Lab test negative for COVID-19 virus (Acute) 36 weeks gestation of (Acute) History of tetanus, diphtheria, and acellular pertussis booster vaccination (Tdap) (Acute) Obesity affecting (Acute) (Acute) Supervision of high-risk (Acute) Hx of deep venous thrombosis (Acute) Epilepsy (Acute) Headache in , antepartum (Resolved) s/p PPD # 1 1. routine post delivery care 2. breast feeding- support given 3. rh positive 4. rubella immune
--- NOTE | 2021-01-25 08:34 | OP.PCM_ITS ---
Problem List (1) 36 weeks gestation of Status: Acute Comment: electronic covid test ordered 12/28/20 (scheduled for 01/17/21 at 1330) (2) Epilepsy Status: Acute Qualifiers: Comment: neurologist- , on meds- Keppra, gets monthly bloodwork with them. no seizures x 7 years (3) History of tetanus, diphtheria, and acellular pertussis booster vaccination (Tdap) Status: Acute Comment: 11/08/20 (4) Hx of deep venous thrombosis Status: Acute Comment: while on OCP/post surgery. previously on xalrelto, plan lovenox in 40 BID in and . plan IOL 39 weeks. Having left leg pain 10/18 - LLE doppler neg (5) Lab test negative for COVID-19 virus Status: Acute (6) Obesity affecting Status: Acute Qualifiers: Comment: nl1 tm GCT, encouraged healthy weight gain. follows WW plan in maintenance. BMI 44 plan third trimester testing. (7) Status: Acute Qualifiers: Comment: carrier screening declined. NIPT low risk. declined ntd screening. NL anatomy- echo 10/12 nl anatomy completed. 11/08, 12/20 nl growth (8) Supervision of high-risk Status: Acute Qualifiers: Comment: PRR THAD 01/28/21 boy jania Gomez Vaginal Delivery Maternal Presentation: Medically Indicated Induction iol h/o dvt on lovenox Method of Induction: Pitocin, Thakur Bulb, Cytotec Amniotic Membrane Rupture Type: Artificial Amniotic Fluid Description: Clear Date of Procedure: 01/24/21 Pre-Operative Diagnosis: iol h/o dvt on lovenox Post-Operative Diagnosis: same Surgery/ Procedure Performed: Spontaneous Vaginal Delivery Type of Anesthesia: Epidural Description of Procedure: Patient began pushing and delivered the head in the LOApresentation. The head was delivered atraumatically . The anterior and posterior shoulders delivered without complication followed by the rest of the and the infant was placed on the maternal abdomen. Delayed cord clamping was employed for approximately 60 seconds. Cord was clamped and cut and gentle traction was applied to the cord and the placenta delivered spontaneously immediately following it was noted to be intact with three-vessel cord. The perineum and vagina were inspected and noted to have a 2nd degree laceration repaired in the usual fashion with 3-0 rapide. EBL was 200 cc. Patient and tolerated delivery well. Presentation: PAOLO Placental Delivery Description: Spontaneous Placenta Disposition: [facility] Cord Vessel Description: 3 Vessels Cord Entanglement: None Episiotomy Description: None Laceration: Perineal Extension/lac, 2nd degree Medications given after delivery: IV Pitocin Complications: None Multi Select Codes - Urinary/Genital Urinary/Genital CPT Codes: 83944 Vaginal Delivery [facility]
[2021-01-25] MEDS: Prenatal Vits Tablet 1 TABLET PO (09:27)
[2021-01-25] MEDS: Famotidine 20 MG Tablet PO ×2 (09:28→22:22)
[2021-01-25] MEDS: LEVETIRACETAM 750 MG 1500 MG PO (09:29)
[2021-01-25] MEDS: Folic Acid 1 MG Tablet 4 MG PO (09:33)
[2021-01-25 13:00] VITALS: BP 132/69; PULSE 73; RESP 18; TEMP 36.1
--- NOTE | 2021-01-25 16:08 | CASEMGMT ---
Social Work Consult: Mental health check-in. Referral source: Dr. Roblero Met with mother of baby (MOB) and father of baby (FOB) in room. Introduced self and social sciences research scientist role. This , Jose Guadalupe Ac is first for both MOB and FOB. MOB and FOB report to feel a connection with infant and were planning . Luke present in room during assessment. MOB and FOB appropriate with Luke. MOB reports plan to breastfeed and reports that is going well. MOB reports to have all needed supplies in the home. This social sciences research scientist broached topic of depression with MOB and was able to facilitate conversation with MOB about signs and symptoms of PPD. MOB voices understanding. MOB denies any mental health history. MOB plans for FOB to assist with Luke over the next week and them MOB's mother will be coming to stay with MOB to assist with care of Luke. MOB does report to have had a breakdown last night, I am just overwhelmed. MOB is able to manage emotions with this social sciences research scientist and reports appropriate ways to reach out for support. MOB reports to have needed support in the community and has support/help with Luke for the new few weeks from FOB and family. MOB denies any concerns on returning to home. This social sciences research scientist provided MOB with resources for depression, safe sleeping, shaken baby and [facility] resource list. Active support and listening provided throughout conversation. PLAN: Infant to discharge to home with MOB and FOB. Nursing staff updated on above. No further services indicated. Shayan VU, SMITH
[2021-01-25] MEDS: Acetaminophen 500 MG Tablet 1000 MG PO (20:13)
[2021-01-25] MEDS: Senna/Docusate Sodium 1 Tablet PO (20:14)
[2021-01-25 20:20] VITALS: BP 142/72; PULSE 84; RESP 18; TEMP 36.4; O2SAT 98
[2021-01-25] MEDS: LEVETIRACETAM 750 MG 2250 MG PO (22:23)
[2021-01-26 02:23] VITALS: BP 147/65; PULSE 68; RESP 18; TEMP 36.4; O2SAT 95
[2021-01-26] MEDS: Acetaminophen 500 MG Tablet 1000 MG PO (07:41)
--- NOTE | 2021-01-26 07:43 | PN.OBGYN_ITS ---
Patient Problems: Active and Suspected Problems (Last Reviewed 01/17/21 @ 10:52 by Beatriz Villavicencio) Lab test negative for COVID-19 virus (Acute) 36 weeks gestation of (Acute) electronic covid test ordered 12/28/20 (scheduled for 01/17/21 at 1330) History of tetanus, diphtheria, and acellular pertussis booster vaccination (Tdap) (Acute) 11/08/20 Obesity affecting (Acute) nl1 tm GCT, encouraged healthy weight gain. follows WW plan in maintenance. BMI 44 plan third trimester testing. (Acute) carrier screening declined. NIPT low risk. declined ntd screening. NL anatomy- echo 10/12 nl anatomy completed. 11/08, 12/20 nl growth Supervision of high-risk (Acute) PRR THAD 01/28/21 boy jania Gomez Hx of deep venous thrombosis (Acute) while on OCP/post surgery. previously on xalrelto, plan lovenox in 40 BID in and . plan IOL 39 weeks. Having left leg pain 10/18 - LLE doppler neg Epilepsy (Acute) neurologist- , on meds- Keppra, gets monthly bloodwork with them. no seizures x 7 years Subjective: Patient doing well without complaints. Tolerating PO. Ambulating and voiding without difficulty. feeding well. Denies chest pain, shortness of breath, calf pain/swelling, fevers, chills, lightheadedness. - Physical Exam Vitals/I&O's: Vital Signs Temp Pulse Resp BP Pulse Ox 97.5 F L 68 18 147/65 H 95 01/26/21 02:23 01/26/21 02:23 01/26/21 02:23 01/26/21 02:23 01/26/21 02:23 Oxygen Delivery Method Room Air Weight: 277 lb 8 oz Body Mass Index (BMI) 47.6 Intake and Output for Last 24 Hours 01/24/21 01/25/21 01/26/21 23:59 23:59 23:59 Intake Total 3501.70 / 3501.70 Output Total 2650 / 2650 Balance 851.70 / 851.70 General: Alert, Oriented x3 Abdomen: Soft, Non Tender, Non-Distended, Appropriate for Gestational Age, - - FF below U Current Medications Acetaminophen (Acetaminophen 500 Mg Tablet) 1,000 mg PO Q8H PRN PRN PRN Reason: Pain Score 1-3 Last Admin: 01/26/21 07:41 Dose: 1,000 mg Documented by: Bisacodyl (Bisacodyl 10 Mg Suppository) 10 mg RC UD PRN PRN Reason: If no BM Dibucaine (Dibucaine 30 Gm Tube) 1 applic TOPICAL TID PRN PRN; Protocol PRN Reason: Discomfort Enoxaparin Sodium (Enoxaparin 40 Mg/0.4 Ml Syringe) 40 mg SC Q12 [facility] Last Admin: 01/25/21 22:22 Dose: 40 mg Documented by: Famotidine (Famotidine 20 Mg Tablet) 20 mg PO BID [facility] Last Admin: 01/25/21 22:22 Dose: 20 mg Documented by: Folic Acid (Folic Acid 1 Mg Tablet) [facility] Last Admin: 01/25/21 09:33 Dose: 4 mg Documented by: Hydrocortisone (Hydrocortisone 2.5% Crm) 1 applic TOPICAL TID PRN PRN; Protocol PRN Reason: Discomfort Lactobacillus Acidophilus (Lactobacillus Acidophilus) 1 tablet [facility] Last Admin: 01/25/21 09:28 Dose: 1 tablet Documented by: Levetiracetam (Levetiracetam 750 Mg Tab.Er.24h) 2,250 mg PO QHS [facility] Last Admin: 01/25/21 22:23 Dose: 2,250 mg Documented by: Levetiracetam (Levetiracetam 750 Mg Tab.Er.24h) 1,500 [facility] Last Admin: 01/25/21 09:29 Dose: 1,500 mg Documented by: Methylergonovine Maleate (Methylergonovine 0.2 Mg/Ml Ampul) 0.2 mg IM X1 PRN PRN Reason: Excess bleeding/uterine atony Naproxen (Naproxen 250 Mg Tablet) 500 mg PO Q8H PRN PRN PRN Reason: Pain Score 1-3 Ondansetron HCl (Ondansetron 4 Mg/2 Ml Vial) 4 mg IV Q4H PRN PRN PRN Reason: Nausea Multivit/Folic Acid/Iron ( Vits Tablet) 1 tablet PO DAILY@1200 [facility] Last Admin: 01/25/21 09:27 Dose: 1 tablet Documented by: Senna/Docusate Sodium (Senna/Docusate Sodium 1 Tablet) 1 - 2 tablet PO DAILY PRN PRN PRN Reason: Constipation Last Admin: 01/25/21 20:14 Dose: 2 tablet Documented by: Simethicone (Simethicone 80 Mg Tablet) 80 mg PO PCHS PRN PRN Reason: Indigestion/Stomach pain Sodium Chloride (0.9% Saline Lock 10 Ml Syringe) 5 - 15 ml IV UD PRN PRN Reason: SALINE FLUSH Last Admin: 01/25/21 01:16 Dose: 10 ml Documented by: Medical Necessity - Tobacco Use Smoking Status: Never smoker Assessment/Plan All Active Problems (Last Reviewed 01/17/21 @ 10:52 by Beatriz Villavicencio) Lab test negative for COVID-19 virus (Acute) 36 weeks gestation of (Acute) History of tetanus, diphtheria, and acellular pertussis booster vaccination (Tdap) (Acute) Obesity affecting (Acute) (Acute) Supervision of high-risk (Acute) Hx of deep venous thrombosis (Acute) Epilepsy (Acute) Headache in , antepartum (Resolved) s/p PPD # 2 1. routine post delivery care 2. breast feeding- support given 3. rh positive 4. rubella immune 5. home today
--- NOTE | 2021-01-26 07:45 | DCINST_ITS ---
Additional Instructions: If you experience any of the following, contact your healthcare provider. * Bleeding that soaks a pad every hour for 2 hours * Fever 100.4 or higher * Unrelieved incision or abdominal pain * Swelling, redness, discharge or bleeding from your incision or episiotomy site * Your incision begins to separate * Problems urinating (including inability to urinate or burning while urinating). * Visual changes * Severe headache * Flu-like symptoms * Pain or redness in one of both of your breasts * Pain, warmth, tenderness or swelling in your legs, especially the calf area * Frequent nausea and vomiting * Symptoms of depression or anxiety If you experience any of the following, call 911 or go to the nearest Emergency Room. * Chest pain * Problems breathing * Seizure activity * Partial or complete paralysis of a body part, slurred speech, weakness or drooping of the face, or a sudden inability to walk or hold your balance Allergies/Adverse Reactions: Allergies latex Allergy (Mild, Verified 01/22/21 19:40) SKIN IRRITATION naproxen [From Aleve] Adverse Reaction (Intermediate, Verified 01/22/21 19:40) hives oxycodone [From Percocet] Adverse Reaction (Intermediate, Verified 01/22/21 19:40) Rash Medications to take at Discharge B-complex with vitamin C 1 tablet PO DAILY 07/04/19 folic acid 1 mg tablet 4 mg PO DAILY tablet 07/04/19 Pnv No.95/Ferrous Fum/Folic AC [ Caplet] 1 each PO DAILY 08/24/19 lactobacillus combination no.8 3 billion cell capsule 3,000 mmu cells PO DAILY 12/21/19 levetiracetam 1,000 mg tablet 1,500 mg PO DAILY tablet 07/26/20 Enoxaparin Sodium [Lovenox] 40 mg SC Q12H 01/22/21 Famotidine 20 mg PO BID 01/22/21 Primary Care Physician: Beatriz De La Garza MD [Primary Care Provider] - Test Results: Test results from this visit will be discussed in further detail at your follow- up appointment, if applicable.
[2021-01-26 07:56] VITALS: BP 137/72; PULSE 85; RESP 16; TEMP 36.3; O2SAT 96
[2021-01-26] MEDS: Metoclopramide 10 MG Tablet PO (08:03)
[2021-01-26 08:16] LABS: Bedside Glucose 89 mg/dL (70-110)
[2021-01-26] MEDS: Folic Acid 1 MG Tablet 4 MG PO (09:04)
[2021-01-26] MEDS: Famotidine 20 MG Tablet PO (09:06)
[2021-01-26] MEDS: Enoxaparin 40 MG/0.4 ML Syringe SC (09:07)
[2021-01-26] MEDS: LEVETIRACETAM 750 MG 1500 MG PO (09:20)
[2021-01-26 13:07] VITALS: BP 137/72; PULSE 70; RESP 16; TEMP 36.6; O2SAT 100
== END 2021-01-26 14:45 | disposition home or self-care (01) | DRG 806 ==
PROVIDERS: Admitting Provider Obstetrics & Gynecology; PCP Family Medicine; Visit Provider Obstetrics & Gynecology
DX: O75.9 Complication of labor and delivery, unspecified (principal); O99.354 Diseases of the nervous system complicating childbirth; Z37.0 Single live birth; O70.1 Second degree perineal laceration during delivery; O76 Abnormality in fetal heart rate and rhythm complicating labor and delivery; O99.214 Obesity complicating childbirth; E66.9 Obesity, unspecified; G40.909 Epilepsy, unspecified, not intractable, without status epilepticus; Z86.718 Personal history of other venous thrombosis and embolism; Z3A.38 38 weeks gestation of pregnancy
CPT/HCPCS: 59025; 59050; 82962; 85025; 86850; 86900; 86901; 99218; J7030; J7120; A4216; G0378; J2405

== ENCOUNTER 2021-01-28 20:00 | Outpatient (CLI) | payer OTHER, SELFPAY ==
--- NOTE | 2021-01-27 12:09 | SUR.PHASEI ---
DR ASCENCIO SPOKE WITH PATIENT AND HER FOR APPROXIMATELY 20 MINUTES EXPLAINING THE REASON THE PROCEDURE COULD NOT BE DONE TODAY. PATIENT RESCHEDULED FOR EPIDURAL BLOOD PATCH FOR 0800 TOMORROW; 01/28/21.
[2021-01-28] VITALS (20 sets, daily range): BP systolic 126–189; BP diastolic 62–82; PULSE 63–82; TEMP 36.4–37.3; O2SAT 98–100; BMI 45.1
[2021-01-28] MEDS: Lactated Ringers 500 ML 999 ML IV (21:03)
--- NOTE | 2021-01-28 21:58 | PCM.OP.PRO ---
Problem List (1) Post-dural puncture headache Status: Acute Comment: Procedure Report Date of Procedure: 01/28/21 30yo Female who had an epidural placed on 01/23/21 and on review of GENERAL OPERATIONS MANAGER's documentation, a wet tap occurred. The catheter was left in place for 24 hours in hopes of sealing the dural puncture but after catheter was removed, headache started. Patient was discharged home but returned today to for a epidural blood patch. Patient has history of a DVT and is on Lovenox. Last dose of Lovenox was 01/27/21 at 19:00. Patient has tried conservative treatment but states minimal relief. She has pain when sitting up, pain is located in forehead and moves into head. Has sensitivity to light. No N/V. walking ok, eating ok. The procedure was discussed in details with the patient. Risks/benefits/alternatives discussed with the patient and patient wishes to proceed with an Epidural blood patch. Consent was signed. Patient received a 500ml bolus of LR. Patient, in the sitting position, was prepped and draped in the sterile usual fashion for an epidural. Puncture hole identified from patient's previous epidural. Local of 3ml 1% lidocaine was injected into the same spot where epidural was placed before, L3/4. Loss of resistance technique was used, 1 attempt. RN obtained 20ml of patient's blood from patient's right arm using sterile technique. 20mls of patient's blood was injected easily into the epidural space through the touchy. Patient tolerated procedure well. Sterile Bandaide was placed onto the site. Patient immediately started to feel relief from her headache. Patient was instructed to lay flat for approximately 1 hour and then slowly resume sitting to see if there is improvement. Patient tolerated procedure well. All questions answered. Patient was instructed to restart her Lovenox in 24 hours, so 01/29/21 evening dose. Sheri Capellan DO anesthesiologist
--- NOTE | 2021-01-28 23:21 | NURSING ---
Addendum entered by Анна Krishnamurthy 01/28/21 23:35: Pt confirmed pt last dose of lovenox at 1910 on 01/27/[address] Capellan prior to procedure. Original Note: Pt arrived to unit at 1999 as scheduled for blood patch for spinal headache. Pt taken to room and ordered to change into gown. Pt rates pain 5/10 at this time in head behind eyes, pain more intense yesterday. RN received verbal orders from Dr. Capellan regarding pt plan of care. RN attempted IV start x1, Ozzy Cardozo RN into room for successful IV start. Pt given 500cc bolus LR per Dr. Capellan. Dr. Capellan into pt room at 2132 to review procedure with pt. Informed consent signed and pt verbalized understanding of procedure. Pt sitting on edge of bed for blood patch placement, Dre ford RN obtained blood using sterile technique in right antecubital for blood patch placement. This RN in room assisting with procedure. Pt tolerated procedure well, 20cc blood given in epidural space at [address] Capellan. Pt repositioned to lie flat on back for one hour per Dr. Capellan. RN obtained vital signs q5min for 30 min and again at [address] Capellan into pt room to assess pt. Pt states she feels better at this time. Moved to semi-fowlers position at 2242, pt tolerated well, moved to high fowlers/sitting position at 2247. Pt continues to state she feels much better. Pt states she is able to look at phone without head hurting and decreased pressure in head with sitting up. RN received verbal order to discharge pt to home at this time per Dr. Capellan. RN and Dr. Capellan reviewed pt discharge instructions. Pt to continue to rest and drink plenty of fluid to stay hydrated and may take regular dose of lovenox in 24hrs. Pt verbalized understanding. Pt notified of procedure end, pt arrived to unit at 2305 to take pt home. Pt states she feels comfortable going home at this time, IV fluids stopped, IV removed, and pt ambulates off unit with at 2315 for discharge to home.
== END 2021-01-28 23:15 | disposition home or self-care (01) ==
LOC: WPOUT 20:18 → WP 20:18
PROVIDERS: Anesthesiology; PCP Family Medicine; Referring Provider Anesthesiology; Visit Provider Anesthesiology
PROC: 3E0R3GC Introduction of Other Therapeutic Substance into Spinal Canal, Percutaneous Approach (ICD-10-PCS; CPT 62273; principal; 2021-01-28 07:55)
DX: G97.1 Other reaction to spinal and lumbar puncture (principal); Y84.4 Aspiration of fluid as the cause of abnormal reaction of the patient, or of later complication, without mention of misadventure at the time of the procedure; Z79.01 Long term (current) use of anticoagulants; Z86.718 Personal history of other venous thrombosis and embolism
CPT/HCPCS: 62273; 36415; 94760; 99218; J7120; G0378

== ENCOUNTER 2021-02-01 17:40 | Outpatient (RCR) | payer OTHER, SELFPAY ==
[2021-01-10 10:29] VITALS: BMI 46.8
[2021-01-28 20:20] VITALS: BMI 45.1
[2021-02-06 08:05] LABS: KEPPRA (LEVETIRACETAM) 22.5 ug/mL (10.0-40.0)
== END 2021-02-01 18:00 | disposition home or self-care (01) ==
LOC: LAB 17:40
PROVIDERS: PCP Family Medicine
DX: G40.319 Generalized idiopathic epilepsy and epileptic syndromes, intractable, without status epilepticus (principal)
CPT/HCPCS: 36415; 80177

== ENCOUNTER 2021-03-04 17:30 | Outpatient (RCR) | payer OTHER, SELFPAY ==
[2021-02-02 09:31] VITALS: BMI 45.1
[2021-02-18 20:18] LABS: KEPPRA (LEVETIRACETAM) 27.9 ug/mL (10.0-40.0)
[2021-03-09 13:34] LABS: KEPPRA (LEVETIRACETAM) 33.9 ug/mL (10.0-40.0)
== END 2021-03-04 18:00 | disposition home or self-care (01) ==
LOC: LAB 17:30
PROVIDERS: PCP Family Medicine
DX: G40.319 Generalized idiopathic epilepsy and epileptic syndromes, intractable, without status epilepticus (principal)
CPT/HCPCS: 36415; 80177

== ENCOUNTER 2021-04-05 17:39 | Outpatient (RCR) | payer OTHER, SELFPAY ==
[2021-03-07 13:53] VITALS: BMI 45.1
[2021-04-09 08:32] LABS: KEPPRA (LEVETIRACETAM) 39.3 ug/mL (10.0-40.0)
== END 2021-04-05 18:00 | disposition home or self-care (01) ==
LOC: LAB 17:39
PROVIDERS: PCP Family Medicine
DX: G40.309 Generalized idiopathic epilepsy and epileptic syndromes, not intractable, without status epilepticus (principal)
CPT/HCPCS: 36415; 80177

== ENCOUNTER → 2022-11-03 | Outpatient (CLI) | payer OTHER, SELFPAY ==
--- NOTE | 2022-11-03 16:44 | RAD_ITS ---
INDICATION: Dorsal left foot pain EXAMINATION/TECHNIQUE: X-RAY - LEFT XR Foot Min 3 Views 3 VIEWS COMPARISON: None. FINDINGS: SOFT TISSUES: No soft tissue swelling or gas. No radiopaque foreign body. BONES/JOINTS: No acute fracture or subluxation. Lisfranc and Chopart planes appear normal. Preservation of the joint space. No sclerotic or destructive changes observed. RAD/Foot min 3 Views IMPRESSION: Negative. Electronically Signed: Arnoldo Krishna MD at 17:10 EST ,
[2022-11-07 16:09] LABS: KEPPRA (LEVETIRACETAM) 20.9 ug/mL (10.0-40.0)
[2022-11-08 20:46] LABS: Lamotrigine (Lamictal) Level 3.1 ug/mL (2.0-20.0)
== END | disposition home or self-care (01) ==
PROVIDERS: PCP Family Medicine; Referring Provider Physician Assistant Surgical; Visit Provider Physician Assistant Surgical
DX: G40.319 Generalized idiopathic epilepsy and epileptic syndromes, intractable, without status epilepticus (principal); S96.912A Strain of unspecified muscle and tendon at ankle and foot level, left foot, initial encounter
CPT/HCPCS: 36415; 73630; 80177; 82542

== ENCOUNTER → 2022-11-25 | Outpatient (CLI) | payer OTHER, SELFPAY ==
[2022-11-25 08:51] LABS: Prolactin 9.6 ng/mL; Thyroid Stim Hormone (TSH) 3.07 uIU/mL (0.358-3.74)
== END | disposition home or self-care (01) ==
LOC: LAB 07:23
PROVIDERS: PCP Family Medicine; Referring Provider Registered Nurse; Visit Provider Registered Nurse
DX: N97.0 Female infertility associated with anovulation (principal)
CPT/HCPCS: 36415; 84146; 84443

== ENCOUNTER 2022-11-26 15:45 | Emergency (ER) | payer OTHER, SELFPAY ==
[2022-11-26 15:46] VITALS: BP 137/86; PULSE 91; RESP 18; TEMP 35.8; O2SAT 98; BMI 46.3
[2022-11-26] MEDS: 0.9% Normal Saline 1,000 ML 999 ML IV (16:16)
[2022-11-26] MEDS: Metoclopramide 10 MG/2 ML Vial IV (16:17)
[2022-11-26 16:18] LABS: Absolute Lymphocyte Count 3.05 X10^3/uL (0.83-4.51); Absolute Neutrophil Count 6.2 X10^3/uL (2.0-7.7); Basophil# 0.04 X10^3/uL; Basophil% 0.4 % (0-1); Hematocrit 38.6 % (37-47); Hemoglobin 12.3 g/dL (12.0-15.0); Lymphocyte # 3.05 X10^3/ul (0.83-4.51); Lymphocyte % 30.7 % (19-41); Mean Corp Hgb Conc 31.9 g/dL (32-36); Mean Corpuscular Hgb 26.3 pg (27.0-32.0); Mean Corpuscular Volume 82.7 fL (81-99); Mean Platelet Vol. 10.3 fl (6.2-12.0); Monocyte# 0.45 X10^3/uL; Monocyte% 4.5 % (0-10); NRBC Flagged by Analyzer 0 % (0-5); Neutrophil # 6.17 X10^3/uL (2.7-7.7); Platelet Count 264 K/mm3 (150-450); RBC Distribution Width CV 14.6 % (11.6-14.6); RBC Distribution Width SD 43.3 fl (35.1-43.9); Red Blood Count 4.67 M/mm3 (4.2-5.4)
[2022-11-26] MEDS: Ketorolac 15 MG/ML Vial IV (16:18)
[2022-11-26] MEDS: DiphenhydrAMINE 50 MG/ML Syringe 25 MG IV (16:19)
[2022-11-26 16:32] LABS: Anion Gap 8 (5-15); BUN 15 mg/dL (7-18); BUN/Creat Ratio 20.4 RATIO (10-20); Calcium,Total 8.8 mg/dL (8.5-10.1); Chloride 102 mmol/L (98-107); Creatinine, Serum 0.74 mg/dL (0.55-1.02); EST Glomerular Filtration Rate 96 mL/min (>60); Est Glom Filt Rate - Afr Amer 117 mL/min (>60); Estimated Creatinine Clearance 93.37 ml/min; Glucose 110 mg/dL (74-106); Potassium 3.6 mmol/L (3.5-5.1); Sodium Level 138 mmol/L (136-145)
--- NOTE | 2022-11-26 17:24 | EX.ED.DYSGE1 ---
HPI <LISSA Castro - Last Filed: 11/26/22 17:30> History of Present Illness Chief Complaint: Headache Narrative Narrative: 32-year-old female with history of seizures, bleeding disorder who presents to the emergency department for a migraine-like headache. Patient states that she developed some tension headache around her eyes, then within an hour to 2 hours, it got very severe in the front part of her head. She denies any dizziness. She does state to have nausea, photophobia and is here for evaluation. She denies any neck pain fever or chills. Denies any infectious-like symptoms. PFS <LISSA Castro - Last Filed: 11/26/22 17:30> [facility] Medical History (Updated 11/26/22 @ 21:[address] Robert Deleon DO) Diarrhea DVT (deep venous thrombosis) Epilepsy Fatigue Home Medications B-complex with vitamin C (Super B Complex-Vitamin C tablet) 1 tablet PO DAILY Check with primary doctor 07/04/19 [History Last Taken 01/07/21] vit no.95-ferrous fumarate 28 mg-folic acid 800 mcg tablet 1 each PO DAILY Check with primary doctor 08/24/19 [History Last Taken 01/07/21] levetiracetam 1,000 mg tablet (Keppra) 1,500 mg PO BID Check with primary doctor 07/26/20 [History Last Taken 01/07/21] lamotrigine 100 mg tablet (Lamictal) 100 mg PO BID 05/30/21 [History Last Taken Unknown] sertraline 50 mg tablet (Zoloft) 50 mg PO DAILY #90 tabs 05/30/21 [Rx Last Taken Unknown] folic acid 1 mg tablet 4 mg PO DAILY Check with primary doctor #90 tabs 06/16/21 [Rx Last Taken Unknown] Allergy/AdvReac Type Severity Reaction Status Date / Time latex Allergy Mild SKIN Verified 11/26/22 15:47 IRRITATION naproxen [From Aleve] AdvReac Intermediate hives Verified 11/26/22 15:47 oxycodone [From Percocet] AdvReac Intermediate Rash Verified 11/26/22 15:47 Family History Grandfather Heart disease Asthma Surgical History H/O foot surgery History of placement of ear tubes Umbilical hernia Social History Smoking Status: Never smoker alcohol intake: never substance use type: does not use caffeine: Yes what type of physical activity do you participate in: none seatbelt use: always do you feel safe at home: Yes additional social history: [employer]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 ROS <LISSA Castro - Last Filed: 11/26/22 17:30> ROS ED ROS Narrative Constitutional: Negative for fever, chills, weight loss, weakness Eyes: Negative for vision loss, vision change, double vision. Positive photophobia ENT: Negative for any sore throat, ear pain, congestion Cardiovascular: Negative for any chest pain, tightness, palpitations Respiratory: Negative for any cough, sputum production, hemoptysis, dyspnea, dyspnea on exertion, orthopnea Gastrointestinal: Negative for any abdominal pain, nausea, vomiting, diarrhea, constipation, blood in stool, blood in vomit : Negative for any urinary frequency, dysuria, retention, blood in urine Muscle skeletal: Negative for any muscle joint pain, stiffness, myalgias, arthralgias, neck pain, back pain Neurological: Negative for any syncope, numbness or tingling, dizziness. Positive migraine-like headache Skin: Negative for any rashes, lumps, itching, abrasions, lacerations Psychiatric: Negative for any depression, anxiety, stress, suicidal ideation, homicidal ideation Hematologic: Negative for any easy bruising, excessive bruising, easy bleeding Allergies: Negative for any eczema, hives, rash EXAM <LISSA Castro - Last Filed: 11/26/22 17:30> Physical Exam Narrative Exam Narrative: Vital signs reviewed. HEET: Head normocephalic atraumatic, TMs clear bilaterally. Posterior pharynx is clear, moist mucous membranes. Nares clear bilaterally. Pupils are equal round reactive to light. Patient does have immediate photophobia. No nystagmus noted. Neck: Supple with no lymphadenopathy or tenderness. No signs of meningismus, negative jolt sign. Cardiac: Regular rate and rhythm no murmurs gallops or rubs, equal peripheral pulses bilaterally. Respiratory: Lungs clear to auscultation bilaterally. No chest tenderness. Abdomen: Soft, nontender, nondistended. No abdominal bruit or pulsatile masses. No hepatosplenomegaly Extremities: No peripheral edema, no signs of gross trauma or deformity. Active full range of motion of all extremities. Neuro: Cranial nerves II through XII intact, no focal neurological deficits. Frontal headache, negative for any thunder clap headache. NIH score 0. Skin: Clean dry and intact with no rash, purpura, petechiae, vesicles or pustules. Backs/flank: No CVA tenderness, no midline spinal tenderness, no deformity. Psych: Normal mood and affect. No SI, HI or acute psychosis. Const Vital Signs: 11/26/22 15:46 Temperature 96.5 F L Temperature Source Temporal Pulse Rate 91 Respiratory Rate 18 Blood Pressure 137/86 H Blood Pressure Mean 103 Pulse Ox 98 Oxygen Delivery Method Room Air Positive well nourished and well developed General Appearance ED: well developed <Dr. Robert Deleon DO - Last Filed: 11/26/22 21:20> Physical Exam Const Vital Signs: 11/26/22 15:46 Temperature 96.5 F L Temperature Source Temporal Pulse Rate 91 Respiratory Rate 18 Blood Pressure 137/86 H Blood Pressure Mean 103 Pulse Ox 98 Oxygen Delivery Method Room Air MDM <LISSA Castro - Last Filed: 11/26/22 17:30> MDM Lab Data Attestation: I reviewed the patient's lab results. Labs: Laboratory Results - last 24 hr 11/26/22 11/26/22 16:14 16:14 WBC 10.0 RBC 4.67 Hgb 12.3 Hct 38.6 MCV 82.7 MCH 26.3 L MCHC 31.9 L RDW Std Deviation 43.3 RDW Coeff of [place] 14.6 Plt Count 264 MPV 10.3 Immature Gran % (Auto) 0.400 Neut % (Auto) 62.0 Lymph % (Auto) 30.7 [place] % (Auto) 4.5 Eos % (Auto) 2.0 Baso % (Auto) 0.4 Absolute Neuts (auto) 6.2 Absolute Lymphs (auto) 3.05 Nucleated RBC % 0 Sodium 138 Potassium 3.6 Chloride 102 Carbon Dioxide 28.0 Anion Gap 8 BUN 15 Creatinine 0.74 Estim Creat Clear Calc 93.37 Est GFR (MDRD) Af Amer 117 Est GFR (MDRD) Non-Af 96 BUN/Creatinine Ratio 20.4 H Glucose 110 H Calcium 8.8 Treatment and Re-Evaluation Narrative: Patient appears to be in mild distress secondary to headache, photophobia, patient presents to the emergency department with a headache that started off insidiously and then became much more severe. Negative for any thunderclap headache. Negative for any meningeal signs. Patient is no signs or symptoms of infection. Patient will be treated like a migraine-like headache. Patient did receive some basic laboratory values, these were grossly unremarkable. Patient received IV fluids, IV Toradol, Reglan, Benadryl. After 45 minutes, the patient felt much better. On reassessment she felt relief and wants to go home. She will follow-up closely with her PCP. Her and her significant other will be given discharge instructions, both were given return precautions. Patient is happy with the plan of care, considered a CT scan of the brain however secondary to the patient having history of migraine headaches, negative for any thunderclap headache, neurological symptoms, this was not necessary at this time. <Dr. Robert Deleon, DO - Last Filed: 11/26/22 21:20> MDM MDM Narrative Medical decision making narrative: Interventions / MDM: Differential diagnosis:Migraine headache, tension headache, Diagnosis considered but do not suspect: Subarachnoid hemorrhage however no thunderclap sensations, meningitis however no focal deficits or meningismus findings. My EKG interpretation: N/A Imaging independently reviewed and interpreted by myself: N/A External documents reviewed: N/A Test considered but not ordered:CT brain however improved symptoms ED course: Attending note: Patient seen and evaluated with waybill clerk. I perform my own [id number] evaluation. I agree with the plan of work-up. Headache 2 hours ago frontal wraps around her head with photophobia. Nausea and vomiting. Similar headache 10 years ago. Denies recent trauma. Exam is photophobia however no meningismal findings no focal deficits. Treated migraine cocktail of monitored with improvement of symptoms. Had slight dizziness for Labs were obtained and normal. Clinically improved on reevaluation. Discharged with outpatient follow-up. Re-evaluation: stable And improved Disposition discussed with patient/family/significant other: Patient Case discussed with consulting clinician: N/A Lab Data Labs: Laboratory Results - last 24 hr 11/26/22 11/26/22 16:14 16:14 WBC 10.0 RBC 4.67 Hgb 12.3 Hct 38.6 MCV 82.7 MCH 26.3 L MCHC 31.9 L RDW Std Deviation 43.3 RDW Coeff of [place] 14.6 Plt Count 264 MPV 10.3 Immature Gran % (Auto) 0.400 Neut % (Auto) 62.0 Lymph % (Auto) 30.7 [place] % (Auto) 4.5 Eos % (Auto) 2.0 Baso % (Auto) 0.4 Absolute Neuts (auto) 6.2 Absolute Lymphs (auto) 3.05 Nucleated RBC % 0 Sodium 138 Potassium 3.6 Chloride 102 Carbon Dioxide 28.0 Anion Gap 8 BUN 15 Creatinine 0.74 Estim Creat Clear Calc 93.37 Est GFR (MDRD) Af Amer 117 Est GFR (MDRD) Non-Af 96 BUN/Creatinine Ratio 20.4 H Glucose 110 H Calcium 8.8 Discharge Plan Triage Chief Complaint: Headache ED Midlevel Provider: Arnoldo Langley ED Provider: Robert Deleon Dx/Rx/DC Orders Clinical Impression: Headache, migraine, Nausea & vomiting Instructions: ED, Migraine (Classical) Prescriptions: No Action B-complex with vitamin C [Super B Complex-Vitamin C] Tablet 1 tablet PO DAILY levetiracetam [Keppra] 1,000 mg tablet 1,500 mg PO BID Rx Instructions: takes 1,500mg in Am, takes 2,250 in PM lamotrigine [Lamictal] 100 mg tablet 100 mg PO BID sertraline [Zoloft] 50 mg tablet 50 mg PO DAILY Qty: 90 4RF PNV cmb#95-ferrous fumarate-FA 1 EACH tablet 1 each PO DAILY folic acid 1 mg tablet 4 mg PO DAILY Qty: 90 3RF Primary Care Provider: Beatriz De La Garza Referrals: Beatriz De La Garza MD [Primary Care Provider] - Activity Restrictions/Additional Instructions: Please follow-up with your PCP. Disposition Disposition: Home, Self Care Discharge Date/Time: 11/26/22 17:50
== END 2022-11-26 17:50 | disposition home or self-care (01) ==
PROVIDERS: Nurse Practitioner; Emergency Provider Emergency Medicine; PCP Family Medicine; Visit Provider Emergency Medicine
DX: G43.909 Migraine, unspecified, not intractable, without status migrainosus (principal); R11.2 Nausea with vomiting, unspecified; Z86.718 Personal history of other venous thrombosis and embolism
CPT/HCPCS: 80048; 85025; 96361; 96374; 96375; 99283; J7030; A4216

== ENCOUNTER → 2023-02-01 | Outpatient (CLI) | payer OTHER, SELFPAY ==
[2023-02-05 20:07] LABS: KEPPRA (LEVETIRACETAM) 16.1 ug/mL (10.0-40.0); Lamotrigine (Lamictal) Level 2.4 ug/mL (2.0-20.0)
== END | disposition home or self-care (01) ==
LOC: LAB 17:18
PROVIDERS: PCP Family Medicine
DX: G40.319 Generalized idiopathic epilepsy and epileptic syndromes, intractable, without status epilepticus (principal)
CPT/HCPCS: 36415; 80177; 82542

== ENCOUNTER → 2023-02-15 | Outpatient (CLI) | payer OTHER, SELFPAY ==
[2023-02-17 12:08] LABS: Chlamydia By Nucleic Acid AMP Negative (Negative); Gonococcus By Nucleic Acid AMP Negative (Negative)
[2023-02-21 09:08] LABS: HPV APTIMA, High Risk Negative (Negative)
== END | disposition home or self-care (01) ==
LOC: LABSPEC 11:56
PROVIDERS: PCP Family Medicine; Referring Provider Obstetrics & Gynecology; Visit Provider Obstetrics & Gynecology
DX: O09.90 Supervision of high risk pregnancy, unspecified, unspecified trimester (principal); Z12.4 Encounter for screening for malignant neoplasm of cervix; Z3A.00 Weeks of gestation of pregnancy not specified
CPT/HCPCS: 87086; 87088; 87491; 87591; 87624; 88175; G0145

== ENCOUNTER → 2023-03-05 | Outpatient (CLI) | payer OTHER, SELFPAY ==
[2023-03-05 08:20] LABS: Absolute Lymphocyte Count 2.35 X10^3/uL (0.83-4.51); Absolute Neutrophil Count 5.8 X10^3/uL (2.0-7.7); Basophil# 0.03 X10^3/uL; Basophil% 0.3 % (0-1); Eosinophil# 0.16 X10^3/uL; Eosinophils% 1.8 % (0-5); Hemoglobin 11.2 g/dL (12.0-15.0); Lymphocyte # 2.35 X10^3/ul (0.83-4.51); Mean Corp Hgb Conc 31.1 g/dL (32-36); Mean Corpuscular Hgb 27.1 pg (27.0-32.0); Mean Corpuscular Volume 87.2 fL (81-99); Mean Platelet Vol. 9.9 fl (6.2-12.0); Monocyte# 0.29 X10^3/uL; Monocyte% 3.3 % (0-10); NRBC Flagged by Analyzer 0 % (0-5); Neutrophil % 66.9 % (47-70); Platelet Count 257 K/mm3 (150-450); RBC Distribution Width CV 15.2 % (11.6-14.6); RBC Distribution Width SD 48.4 fl (35.1-43.9); Red Blood Count 4.13 M/mm3 (4.2-5.4); White Blood Count 8.7 K/mm3 (4.4-11.0)
[2023-03-05 09:00] LABS: Glucose Challenge Gest 1H 50g 99 mg/dL (70-140); Thyroid Stim Hormone (TSH) 1.98 uIU/mL (0.358-3.74)
[2023-03-05 09:32] LABS: HIV - WCH Non-Reactive (Nonreactive); Hepatitis B Surface Antigen Non-Reactive (Nonreactive); Hepatitis C Antibody Non-Reactive (Nonreactive); Rubella IgG Reactive (Nonreactive); Syphilis Antibodies Non-reactive
[2023-03-06 16:09] LABS: KEPPRA (LEVETIRACETAM) 16.5 ug/mL (10.0-40.0)
== END | disposition home or self-care (01) ==
PROVIDERS: Registered Nurse; PCP Family Medicine; Visit Provider Obstetrics & Gynecology
DX: O09.90 Supervision of high risk pregnancy, unspecified, unspecified trimester (principal); G40.319 Generalized idiopathic epilepsy and epileptic syndromes, intractable, without status epilepticus; R79.89 Other specified abnormal findings of blood chemistry; O99.210 Obesity complicating pregnancy, unspecified trimester
CPT/HCPCS: 36415; 80177; 82542; 82950; 84439; 84443; 85025; 86703; 86762; 86780; 86803; 86850; 86900; 86901; 87340

== ENCOUNTER → 2023-04-02 | Outpatient (CLI) | payer OTHER, SELFPAY ==
[2023-04-02 17:25] LABS: NATERA MAILED SPECIMEN
== END | disposition home or self-care (01) ==
LOC: LAB 16:18
PROVIDERS: PCP Family Medicine; Referring Provider Advanced Practice Midwife; Visit Provider Advanced Practice Midwife
DX: Z34.82 Encounter for supervision of other normal pregnancy, second trimester (principal)
CPT/HCPCS: 36415

== ENCOUNTER 2023-04-10 10:49 | Outpatient (CLI) | payer OTHER, SELFPAY ==
[2023-04-10 12:12] LABS: NATERA MAILED SPECIMEN
== END 2023-04-10 23:59 | disposition home or self-care (01) ==
LOC: PAVLAB 10:50
PROVIDERS: PCP Family Medicine; Referring Provider Advanced Practice Midwife; Visit Provider Advanced Practice Midwife
DX: Z34.90 Encounter for supervision of normal pregnancy, unspecified, unspecified trimester (principal)

== ENCOUNTER → 2023-04-24 | Outpatient (CLI) | payer OTHER, SELFPAY ==
[2023-04-30 20:07] LABS: KEPPRA (LEVETIRACETAM) 14.1 ug/mL (10.0-40.0); Lamotrigine (Lamictal) Level 2.4 ug/mL (2.0-20.0)
== END | disposition home or self-care (01) ==
PROVIDERS: PCP Family Medicine
DX: G40.319 Generalized idiopathic epilepsy and epileptic syndromes, intractable, without status epilepticus (principal)
CPT/HCPCS: 36415; 80177; 82542

== ENCOUNTER → 2023-06-08 | Outpatient (CLI) | payer OTHER, SELFPAY ==
[2023-06-08 17:44] LABS: Absolute Lymphocyte Count 2.41 X10^3/uL (0.83-4.51); Absolute Neutrophil Count 8.6 X10^3/uL (2.0-7.7); Basophil# 0.02 X10^3/uL; Basophil% 0.2 % (0-1); Eosinophil# 0.15 X10^3/uL; Eosinophils% 1.3 % (0-5); Hematocrit 33.8 % (37-47); Hemoglobin 11.1 g/dL (12.0-15.0); Lymphocyte # 2.41 X10^3/ul (0.83-4.51); Lymphocyte % 20.5 % (19-41); Mean Corp Hgb Conc 32.8 g/dL (32-36); Mean Corpuscular Volume 91.4 fL (81-99); Mean Platelet Vol. 9.9 fl (6.2-12.0); Monocyte# 0.46 X10^3/uL; Monocyte% 3.9 % (0-10); NRBC Flagged by Analyzer 0 % (0-5); Neutrophil # 8.62 X10^3/uL (2.7-7.7); Neutrophil % 73.3 % (47-70); Platelet Count 269 K/mm3 (150-450); RBC Distribution Width CV 15.6 % (11.6-14.6); White Blood Count 11.8 K/mm3 (4.4-11.0)
[2023-06-08 18:20] LABS: Glucose Challenge Gest 1H 50g 86 mg/dL (70-140)
[2023-06-08 18:54] LABS: HIV - WCH Non-Reactive (Nonreactive); Syphilis Antibodies Non-reactive
== END | disposition home or self-care (01) ==
LOC: LAB 17:21
PROVIDERS: PCP Family Medicine; Referring Provider Registered Nurse; Visit Provider Registered Nurse
DX: O09.90 Supervision of high risk pregnancy, unspecified, unspecified trimester (principal); Z13.1 Encounter for screening for diabetes mellitus; Z3A.00 Weeks of gestation of pregnancy not specified
CPT/HCPCS: 36415; 82950; 85025; 86703; 86780

== ENCOUNTER 2023-06-12 17:22 | Outpatient (RCR) | payer OTHER, SELFPAY ==
[2023-06-18 18:07] LABS: Lamotrigine (Lamictal) Level 2.5 ug/mL (2.0-20.0)
== END 2023-06-12 18:00 | disposition home or self-care (01) ==
LOC: LAB 17:22
PROVIDERS: PCP Family Medicine
DX: G40.309 Generalized idiopathic epilepsy and epileptic syndromes, not intractable, without status epilepticus (principal)
CPT/HCPCS: 36415; 80177; 82542

== ENCOUNTER 2023-07-19 17:50 | Outpatient (RCR) | payer OTHER, SELFPAY ==
[2023-07-23 20:07] LABS: KEPPRA (LEVETIRACETAM) 14.2 ug/mL (10.0-40.0); Lamotrigine (Lamictal) Level 2.3 ug/mL (2.0-20.0)
== END 2023-07-19 18:00 | disposition home or self-care (01) ==
LOC: LAB 17:50
PROVIDERS: PCP Family Medicine
DX: G40.309 Generalized idiopathic epilepsy and epileptic syndromes, not intractable, without status epilepticus (principal)
CPT/HCPCS: 36415; 80177; 82542

== ENCOUNTER → 2023-08-13 | Outpatient (CLI) | payer OTHER, SELFPAY ==
--- NOTE | 2023-08-13 15:55 | US_ITS ---
STUDY: OBSTETRICAL ULTRASOUND - BIOPHYSICAL PROFILE REASON FOR EXAM: Female, 32 years old well being -- 34 weeks LMP: 12/16/2022 PRIOR ULTRASOUND: None. TECHNIQUE: Transabdominal TECHNICAL QUALITY: Adequate. FINDINGS: There is a single intrauterine fetus. The fetus is in a breech presentation. There is demonstrated cardiac activity with a heart rate of 152 bpm. There is a normal amniotic fluid volume. The largest amniotic fluid pocket measures 5.8 cm. The amniotic fluid index (KIMMY) is 16.8 cm. The placenta is anterior in location and is not low lying. There are Grade 1 placental changes. Age by LMP: 34 weeks, 2 days. THAD by LMP: 09/22/2023. BIOPHYSICAL PROFILE: Breathing Movements (FBM): 2 Gross Body Movements (GBM): 2 Tone (FT): 2 Amniotic Fluid Volume (AFV): 2 TOTAL SCORE: US/Biophysical Prof W/O Non Stres IMPRESSION: Normal biophysical profile of 05/22. Electronically Signed: Jack Morse MD at 20:10 EDT ,
== END | disposition home or self-care (01) ==
PROVIDERS: PCP Family Medicine; Referring Provider Obstetrics & Gynecology; Visit Provider Obstetrics & Gynecology
DX: E66.01 Morbid (severe) obesity due to excess calories (principal); Z68.42 Body mass index [BMI] 45.0-49.9, adult
CPT/HCPCS: 76819

== ENCOUNTER → 2023-08-17 | Outpatient (CLI) | payer OTHER, SELFPAY ==
--- NOTE | 2023-08-17 16:28 | US_ITS ---
STUDY: OBSTETRICAL ULTRASOUND - BIOPHYSICAL PROFILE REASON FOR EXAM: Female, 32 years old well being -- 35 weeks LMP: 12/16/2022 PRIOR ULTRASOUND: 08/13/2023 TECHNIQUE: Transabdominal TECHNICAL QUALITY: Adequate. FINDINGS: There is a single intrauterine fetus. The fetus is in a cephalic presentation. There is demonstrated cardiac activity with a heart rate of 153 bpm. There is a normal amniotic fluid volume. The largest amniotic fluid pocket measures 7.7 cm. The amniotic fluid index (KIMMY) is 20.0 cm. The placenta is anterior in location and is not low lying. There are Grade 1 placental changes. Age by LMP: 34 weeks, 6 days. THAD by LMP: 09/22/2023. BIOPHYSICAL PROFILE: Breathing Movements (FBM): 2 Gross Body Movements (GBM): 2 Tone (FT): 2 Amniotic Fluid Volume (AFV): 2 TOTAL SCORE: US/Biophysical Prof W/O Non Stres IMPRESSION: Normal biophysical profile of 05/22. Electronically Signed: Jack Morse MD at 21:00 EDT ,
== END | disposition home or self-care (01) ==
LOC: US 16:27
PROVIDERS: PCP Family Medicine; Referring Provider Obstetrics & Gynecology; Visit Provider Obstetrics & Gynecology
DX: E66.01 Morbid (severe) obesity due to excess calories (principal); Z68.42 Body mass index [BMI] 45.0-49.9, adult
CPT/HCPCS: 76819

== ENCOUNTER → 2023-08-20 | Outpatient (CLI) | payer OTHER, SELFPAY ==
--- NOTE | 2023-08-20 09:32 | US_ITS ---
STUDY: SECOND AND THIRD TRIMESTER OBSTETRICAL ULTRASOUND REASON FOR EXAM: Female, 32 years old GROWTH SCAN LMP: December 16, 2022. TECHNIQUE: Transabdominal TECHNICAL QUALITY: Adequate. PRIOR ULTRASOUND: Comparison is made with prior study dated August 17, 2023. FINDINGS: There is a single intrauterine fetus. The fetus is in a cephalic presentation. There is demonstrated cardiac activity with a heart rate of 130 bpm. There is a normal amniotic fluid volume. The largest amniotic fluid pocket measures 8.3 cm. The amniotic fluid index (KIMMY) is 21.7 cm. The placenta is anterior in location and is not low lying. There are Grade 1 placental changes. The cervical length was not able to be measured due to the head positioning. BIOMETRY: BPD: 8.99 cm: 36 weeks, 3 days HC: 34.55 cm: 40 weeks, 0 days AC: 32.33 cm: 36 weeks, 2 days FL: 6.86 cm: 35 weeks, 2 days CI: 72.6% FL/BPD: 76.4% FL/HC: FL/AC: 21.2% HC/AC: 1.07 age by current US: 37 weeks, 3 days. THAD by current US: September 07, 2023. Estimated weight: 2857 grams, +/- 429 grams, 71.5 %. Age by LMP: 35 weeks, 2 days. THAD by LMP: September 22, 2023. US/OB Limited With Biometrics IMPRESSION: Single live uterine gestation with a mean gestational age of 37 weeks and 3 days. Electronically Signed: Nicholas Pichardo MD at 13:52 EST ,
== END | disposition home or self-care (01) ==
LOC: US 09:31
PROVIDERS: PCP Family Medicine; Referring Provider Obstetrics & Gynecology; Visit Provider Obstetrics & Gynecology
DX: E66.01 Morbid (severe) obesity due to excess calories (principal); Z68.42 Body mass index [BMI] 45.0-49.9, adult
CPT/HCPCS: 76816

== ENCOUNTER → 2023-08-24 | Outpatient (CLI) | payer OTHER, SELFPAY ==
--- NOTE | 2023-08-24 11:45 | US_ITS ---
STUDY: OBSTETRICAL ULTRASOUND - BIOPHYSICAL PROFILE REASON FOR EXAM: Female, 32 years old well being -- 37 weeks LMP: December 16, 2022. PRIOR ULTRASOUND: Comparison is made with prior study August 20, 2023. TECHNIQUE: Transabdominal TECHNICAL QUALITY: Adequate. FINDINGS: There is a single intrauterine fetus. The fetus is in a breech presentation. There is demonstrated cardiac activity with a heart rate of 143 bpm. There is a normal amniotic fluid volume. The largest amniotic fluid pocket measures 6.5 cm x 4.7 cm. The amniotic fluid index (KIMMY) is 22.8 cm. The placenta is anterior in location and is not low lying. There are Grade 1 placental changes. Age by LMP: 35 weeks, 6 days. THAD by LMP: September 22, 2023. age by prior US: 38 weeks, 0 days. THAD by prior US: September 07, 2023. Gender: Male BIOPHYSICAL PROFILE: Breathing Movements (FBM): 2 Gross Body Movements (GBM): 2 Tone (FT): 2 Amniotic Fluid Volume (AFV): 2 TOTAL SCORE: / US/Biophysical Prof W/O Non Stres IMPRESSION: Normal biophysical profile of 05/22. Electronically Signed: Nicholas Pichardo MD at 8:56 EST ,
== END | disposition home or self-care (01) ==
LOC: US 11:43
PROVIDERS: PCP Family Medicine; Referring Provider Obstetrics & Gynecology; Visit Provider Obstetrics & Gynecology
DX: E66.01 Morbid (severe) obesity due to excess calories (principal); Z68.42 Body mass index [BMI] 45.0-49.9, adult
CPT/HCPCS: 76819

== ENCOUNTER → 2023-08-31 | Outpatient (CLI) | payer OTHER, SELFPAY | END | disposition home or self-care (01) | LOC: LABSPEC 12:03 | PROVIDERS: PCP Family Medicine; Visit Provider Registered Nurse | DX: O09.90 Supervision of high risk pregnancy, unspecified, unspecified trimester (principal); Z3A.00 Weeks of gestation of pregnancy not specified | CPT/HCPCS: 87081 ==

== ENCOUNTER → 2023-08-31 | Outpatient (CLI) | payer OTHER, SELFPAY ==
--- NOTE | 2023-08-31 12:55 | US_ITS ---
STUDY: OBSTETRICAL ULTRASOUND - BIOPHYSICAL PROFILE REASON FOR EXAM: Female, 32 years old well being -- 36 weeks LMP: 12/16/2022 PRIOR ULTRASOUND: 08/24/2023 TECHNIQUE: Transabdominal TECHNICAL QUALITY: Adequate. FINDINGS: There is a single intrauterine fetus. The fetus is in a cephalic presentation. There is demonstrated cardiac activity with a heart rate of 137 bpm. There is increased amniotic fluid consistent with polyhydramnios. The largest amniotic fluid pocket measures 7.7 cm. The amniotic fluid index (KIMMY) is 23.2 cm. The placenta is There are Grade 0 placental changes. Age by LMP: 36 weeks, 6 days. THAD by LMP: 09/22/2023. BIOPHYSICAL PROFILE: Breathing Movements (FBM): 2 Gross Body Movements (GBM): 2 Tone (FT): 2 Amniotic Fluid Volume (AFV): 2 TOTAL SCORE: 8 / 8 US/Biophysical Prof W/O Non Stres IMPRESSION: Normal biophysical profile of 05/22. Polyhydramnios with an amniotic fluid index 23.2 cm. Electronically Signed: Jack Morse MD at 18:20 EST ,
== END | disposition home or self-care (01) ==
LOC: US 12:55
PROVIDERS: PCP Family Medicine; Referring Provider Obstetrics & Gynecology; Visit Provider Obstetrics & Gynecology
DX: O99.213 Obesity complicating pregnancy, third trimester (principal); E66.01 Morbid (severe) obesity due to excess calories; Z3A.36 36 weeks gestation of pregnancy
CPT/HCPCS: 76819

== ENCOUNTER 2023-09-07 12:58 | Outpatient (CLI) | payer OTHER, SELFPAY ==
[2023-09-07 12:50] VITALS: BP 116/66; PULSE 86; TEMP 36.2
[2023-09-07 13:05] VITALS: BP 116/66; PULSE 86
--- NOTE | 2023-09-07 15:04 | OB.TRI.PN_ITS ---
Progress Notes Date of Service: 09/07/23 Progress Note: Patient presents for triage evaluation secondary to 03/22 bpp FHT: 140 Moderate variability reactive no decelerations category I tracing Rosa Sanchez: no regu;lar Contractions Assessment and plan: abnormal testing 03/22 bpp now 05/24 overall reassuring, Reactive NST, reassuring maternal and status patient discharged to home to follow-up as scheduled. See problem list details for additional plan information. Charges/Coding Procedures Urinary/Genital [id number]: [id number] non-stress test Interp Assessment & Plan (1) Breech presentation: COMMENT: plan primary cs 09/17 with SM
== END 2023-09-07 13:44 | disposition home or self-care (01) ==
LOC: WPOUT 13:03 → WP 13:03
PROVIDERS: PCP Family Medicine; Visit Provider Obstetrics & Gynecology
DX: O32.1XX0 Maternal care for breech presentation, not applicable or unspecified (principal); Z3A.00 Weeks of gestation of pregnancy not specified
CPT/HCPCS: 59025; 59050

== ENCOUNTER → 2023-09-07 | Outpatient (CLI) | payer OTHER, SELFPAY ==
--- NOTE | 2023-09-07 11:50 | US_ITS ---
STUDY: OBSTETRICAL ULTRASOUND - BIOPHYSICAL PROFILE REASON FOR EXAM: Female, 32 years old well being -- 38 weeks LMP: 12/16/2022 PRIOR ULTRASOUND: 08/31/2023. TECHNIQUE: Transabdominal TECHNICAL QUALITY: Adequate. FINDINGS: There is a single intrauterine fetus. The fetus is in a breech presentation. There is demonstrated cardiac activity with a heart rate of 140 bpm. There is a normal amniotic fluid volume. The largest amniotic fluid pocket measures 5.9 cm. The amniotic fluid index (KIMMY) is 18 cm. The placenta is anterior in location and is not low lying. There are Grade 2 placental changes. Age by LMP: 37 weeks, 6 days. THAD by LMP: 09/22/2023. Gender: Male BIOPHYSICAL PROFILE: Breathing Movements (FBM): 0 Gross Body Movements (GBM): 2 Tone (FT): 2 Amniotic Fluid Volume (AFV): 2 TOTAL SCORE: 6 / 8 US/Biophysical Prof W/O Non Stres IMPRESSION: Abnormal biophysical profile of 6/8-score of 0 for breathing. Electronically Signed: Jonathan Saini MD at 19:12 EST ,
== END | disposition home or self-care (01) ==
LOC: US 11:48
PROVIDERS: PCP Family Medicine; Visit Provider Obstetrics & Gynecology
DX: E66.01 Morbid (severe) obesity due to excess calories (principal); Z68.42 Body mass index [BMI] 45.0-49.9, adult
CPT/HCPCS: 76819

== ENCOUNTER → 2023-09-10 | Outpatient (CLI) | payer OTHER, SELFPAY ==
--- NOTE | 2023-09-10 09:59 | US_ITS ---
STUDY: SECOND AND THIRD TRIMESTER OBSTETRICAL ULTRASOUND - LIMITED REASON FOR EXAM: Female, 32 years old GROWTH SCAN LMP: 12/16/2022. PRIOR ULTRASOUND: Prior study dated: [08/20/2023 TECHNIQUE: Transabdominal TECHNICAL QUALITY: Adequate. FINDINGS: There is a single intrauterine fetus. The fetus is in a cephalic presentation. There is demonstrated cardiac activity with a heart rate of 137 bpm. There is a normal amniotic fluid volume. The largest amniotic fluid pocket measures 7 cm. The amniotic fluid index (KIMMY) is 21.9 cm. The placenta is anterior in location and is not low lying. There are Grade 2 placental changes. The cervix is not visualized. BIOMETRY: BPD: 9.4 cm: 38 weeks, 2 days HC: 34.3 cm: 39 weeks, 4 days AC: 36.4 cm: 40 weeks, 2 days FL: 7.4 cm: 38 weeks, 0 days age by prior US: 37 weeks, 3 days. THAD by prior US: 08/18/2023. age by current US: 39 weeks, 0 days. THAD by current US: 09/17/2023. Estimated weight: 3826 grams, +/- 574 grams, 89 percentile. US/OB Limited With Biometrics IMPRESSION: Single live intrauterine fetus in cephalic presentation with an estimated gestational age of 39 weeks. Electronically Signed: Jose Hansen MD at 15:31 EST ,
== END | disposition home or self-care (01) ==
LOC: US 09:58
PROVIDERS: PCP Family Medicine; Referring Provider Obstetrics & Gynecology; Visit Provider Obstetrics & Gynecology
DX: E66.01 Morbid (severe) obesity due to excess calories (principal); Z68.42 Body mass index [BMI] 45.0-49.9, adult
CPT/HCPCS: 76816

== ENCOUNTER → 2023-09-14 | Outpatient (CLI) | payer OTHER, SELFPAY ==
--- NOTE | 2023-09-14 12:04 | US_ITS ---
STUDY: OBSTETRICAL ULTRASOUND - BIOPHYSICAL PROFILE REASON FOR EXAM: Female, 33 years old well being -- 39 weeks LMP: December 16, 2022. PRIOR ULTRASOUND: Comparison is made with prior study September 10, 2023. TECHNIQUE: Transabdominal TECHNICAL QUALITY: Adequate. FINDINGS: There is a single intrauterine fetus. The fetus is in a cephalic presentation. There is demonstrated cardiac activity with a heart rate of 127 bpm. There is increased amniotic fluid consistent with polyhydramnios. The largest amniotic fluid pocket measures 9 cm x 5.8 cm cm. The amniotic fluid index (KIMMY) is 22.5 cm. The placenta is anterior in location and is not low lying. There are Grade 2 placental changes. Age by LMP: 38 weeks, 6 days. THAD by LMP: September 22, 2023. BIOPHYSICAL PROFILE: Breathing Movements (FBM): 2 Gross Body Movements (GBM): 2 Tone (FT): 2 Amniotic Fluid Volume (AFV): 2 TOTAL SCORE: 8 / 8 US/Biophysical Prof W/O Non Stres IMPRESSION: Normal biophysical profile of 8/8. Polyhydramnios. Electronically Signed: Nicholas Pichardo MD at 15:25 EST ,
== END | disposition home or self-care (01) ==
LOC: US 12:03
PROVIDERS: PCP Family Medicine; Referring Provider Obstetrics & Gynecology; Visit Provider Obstetrics & Gynecology
DX: E66.01 Morbid (severe) obesity due to excess calories (principal); Z68.42 Body mass index [BMI] 45.0-49.9, adult
CPT/HCPCS: 76819

== ENCOUNTER 2023-09-17 07:00 | Inpatient (IN) | payer OTHER, SELFPAY ==
[2023-09-17] VITALS (36 sets, daily range): BP systolic 96–137; BP diastolic 49–90; PULSE 72–125; TEMP 36.1–36.6; O2SAT 96–100; BMI 46.5
--- NOTE | 2023-09-17 07:28 | HP.PCM.OB_ITS ---
HPI - General General Date of Admission: 09/17/23 HPI Narrative MIRELA DAY, is a 33 y/o @ 39 weeks 2 days who presents to L&D for induction of labor. This she has experienced an unstable lie. Her last check showed vtx presentation. She has a h/o DVT and used lovenox this . She is morbidly obese and earlier in the she had polyhydramnios. She has a history of stable epilepsy. Maternal Data Information THAD Calculator Estimated Delivery Date Method Current WG Current Estimate 09/22/23 LMP (Certain) 39w 2d Other Estimates 09/17/23 Ultrasound #1 40w 0d PFSH PFSH Medical History (Updated 09/14/23 @ 10:27 by Cecilia Delarosa LPN) Breech presentation Diarrhea DVT (deep venous thrombosis) Epilepsy Fatigue Home Medications vit no.95-ferrous fumarate 28 mg-folic acid 800 mcg tablet 1 each PO DAILY Check with primary doctor 08/24/19 [History Last Taken 09/07/23 08:45 1 ea] sertraline 50 mg tablet (Zoloft) 50 mg PO DAILY #90 tabs 05/30/21 [Rx Last Taken 09/06/23 22:00 50 mg] enoxaparin 40 mg/0.4 mL subcutaneous syringe (Lovenox) 40 mg (0.4 mL) subcut Q12H 30 days #24 mL 01/12/23 [Rx Last Taken 09/07/23 08:45 40 mg] famotidine 20 mg tablet (Pepcid) 20 mg PO DAILY #90 tabs 06/06/23 [Rx Last Taken 09/07/23 08:45 20 mg] lamotrigine 100 mg tablet (Lamictal) 600 mg PO BID 08/17/23 [History Last Taken 09/07/23 08:45 600 mg] levetiracetam 1,000 mg tablet (Keppra) 2,500 mg PO BID Check with primary doctor 08/17/23 [History Last Taken 09/07/23 08:45 2,500 mg] lamotrigine 150 mg tablet 300 mg PO Q12H epilepsy 09/07/23 [History Last Taken 09/07/23 08:45 300 mg] Allergy/AdvReac Type Severity Reaction Status Date / Time latex Allergy Mild SKIN Verified 09/10/23 13:47 IRRITATION naproxen [From Aleve] AdvReac Intermediate hives Verified 09/10/23 13:47 oxycodone [From Percocet] AdvReac Intermediate Rash Verified 09/10/23 13:47 Family History Grandfather Heart disease Asthma Surgical History H/O foot surgery History of placement of ear tubes Umbilical hernia Social History Smoking Status: Never smoker alcohol intake: never substance use type: does not use caffeine: Yes what type of physical activity do you participate in: none seatbelt use: always do you feel safe at home: Yes additional social history: [email or web address], [employer]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 History 3 Elective abortions Hx Para 1 Spontaneous abortions 1 Hx # Term Pregnancies Ectopic pregnancies Hx # Pregnancies Multiple births # of living children 1 Past Pregnancies Del. Date Name GA/Weeks Outcome Route Bth Weight Gen Labor Lgth Anesthesia Del [facility] Provider FOB 01/25/21 Luke 39 live - full term Male epidur al [facility] Visit Details Expected Delivery Route/Plan Labor Preferences- CB/BF classes: [] labor support person: Akanksha labor intervention preferences: [] pain management options preferred: [] cut cord/dad catch: [] : [] PP control planned: [] discussed possible routes of delivery and associated risks: [] special requests: [] Plans Covid status: declined Flu vaccine: given Tdap vaccine: given Rhogam: na LARC form signed: declined movement and labor precautions reviewed. Problem list reviewed and updated with the most current plan of care details and appropriate orders placed. Relevant counseling for the gestational age provided. Continue routine care and follow up unless otherwise noted in visit notes/problem list details OB Flowsheet Initial Weight: 267 lb Date -?-?-?-?-?-?-?-?-?-?-?-?- EGA Weight BP Urine Prot -?-?-?-?-?-?-?-?-?-?-?-?- Glucose FHR FuHt Pres Dilation -?-?-?-?-?-?-?-?-?-?-?-?- Effaced St Visit Note 02/15/23 -?-?-?-?-?-?-?-?-?-?-?-?- 8w 5d 267 lb 8 oz (+8 oz) 122/66 -?-?-?-?-?-?-?-?-?-?-?-?- 175 -?-?-?-?-?-?-?-?-?-?-?-?- JV- CRL consiste nt with LMP. desires NIPT. pt is on lovenox for h/o dvt on ocps. 03/16/23 -?-?-?-?-?-?-?-?-?-?-?-?- 12w 6d 265 lb 8 oz (-1 lb 8 oz) 116/70 Negative -?-?-?-?-?-?-?-?-?-?-?-?- Negative 165 -?-?-?-?-?-?-?-?-?-?-?-?- kw-no concerns. no vb/cramping 04/10/23 -?-?-?-?-?-?-?-?-?-?-?-?- 16w 3d 266 lb (-16 oz) 124/82 Negative -?-?-?-?-?-?-?-?-?-?-?-?- Negative 150 -?-?-?-?-?-?-?-?-?-?-?-?- KW- few flutters . no vb/cramping. PRR. Pepcid ordered for acid reflux with vomiting. U/S scheduled for 05/02. 05/11/23 -?-?-?-?-?-?-?-?-?-?-?-?- 20w 6d 268 lb 2 oz (+1 lb 2 oz) 118/72 Negative -?-?-?-?-?-?-?-?-?-?-?-?- Negative 140 -?-?-?-?-?-?-?-?-?-?-?-?- LC- no vb/crampi ng. normal anatomy. 06/06/23 -?-?-?-?-?-?-?-?-?-?-?-?- 24w 4d 269 lb 4 oz (+2 lb 4 oz) 138/82 109/75 Negative -?-?-?-?-?-?-?-?-?-?-?-?- Negative 140 24 -?-?-?-?-?-?-?-?-?-?-?-?- LC- no vb/crampi ng. joint discomfort- starting on magnesium. 28 week labs ordered. 07/06/23 -?-?-?-?-?-?-?-?-?-?-?-?- 28w 6d 267 lb 2 oz (+2 oz) 128/66 Negative -?-?-?-?-?-?-?-?-?-?-?-?- Negative 140 -?-?-?-?-?-?-?-?-?-?-?-?- KW-no vb, lof, c tx. good fm. 28 week labs reviewed. KW-no vb, lof, ctx. good fm. 28 week labs reviewed-A+. AG given on 34 week NSTs and growth US starting at 34 weeks. LARC and TDAP today. 07/20/23 -?-?-?-?-?-?-?-?-?-?-?-?- 30w 6d 270 lb (+3 lb) 118/70 Negative -?-?-?-?-?-?-?-?-?-?-?-?- Negative 140 32 -?-?-?-?-?-?-?-?-?-?-?-?- SM- no vb lof go od fm no regular ctx 08/03/23 -?-?-?-?-?-?-?-?-?-?-?-?- 32w 6d 270 lb 2 oz (+3 lb 2 oz) 135/74 Negative -?-?-?-?-?-?-?-?-?-?-?-?- Negative 147 34 -?-?-?-?-?-?-?-?-?-?-?-?- JV- needs weekly bpp's starting 34 weeks. has growth scan scheduled for 08/20. no lof, vaginal bleeding, or dec fm. lisa gets increased weekly based on blood levels. 08/17/23 -?-?-?-?-?-?-?-?-?-?-?-?- 34w 6d 270 lb (+3 lb) 124/78 Negative -?-?-?-?-?-?-?-?-?-?-?--?- Negative 135 39 Breech -?-?-?-?-?-?-?-?-?-?-?-?- KW-no vb/lof/ctx . good fm. BPP today. growth on sunday08/24/23 -?-?-?-?-?-?-?-?-?-?-?-?- 35w 6d 270 lb 6 oz (+3 lb 6 oz) 118/74 Negative -?-?-?-?-?-?-?-?-?-?-?-?- Negative 156 41 Breech -?-?-?-?-?-?-?-?-?-?-?-?- JV - bpp 05/22 tod ay and breech again. was cephalic sunday. if breech next week will schedule cs. 08/31/23 -?-?-?-?-?-?-?-?-?-?-?-?- 36w 6d 273 lb 2 oz (+6 lb 2 oz) 125/81 Negative -?-?-?-?-?-?-?-?-?-?-?-?- Negative 150 42 Breech -?-?-?-?-?-?-?-?-?-?-?-?- LC- bpp today. b reech today, will schedule c/s for 09/14 at 39 weeks. no ctx/lof/vb. good fm. 09/04/23 -?-?-?-?-?-?-?-?-?-?-?-?- 37w 3d 270 lb 4 oz (+3 lb 4 oz) 120/76 Negative -?-?-?-?-?-?-?-?-?-?-?-?- Negative 130 42 Cephalic -?-?-?-?-?-?-?-?-?-?-?-?- JV- kimmy is 23 on 08/31 and cephalic presentation. will cancel cs and schedule IOL for 39 weeks. 09/14 is when she is scheduled for surgery but that it 38 weeks 6 days. 09/10/23 -?-?-?-?-?-?-?-?-?-?-?-?- 38w 2d 270 lb 4 oz (+3 lb 4 oz) 112/75 Negative -?-?-?-?-?-?-?-?-?-?-?-?- Negative 137 Cephalic 1 -?-?-?-?-?-?-?-?-?-?-?-?- 0 -4 JV- head i s vtx again, but not engaged. wants to try for IOL as long as stays vtx. scheduled for 09/17/23. bring ultrasound to room prior to starting induction. needs one more bpp on Sunday. ROS Constitutional Constitutional: Denies change in weight, fatigue, fever(s), headache(s), poor appetite or weakness Eyes Eyes: Denies blurry vision, change in vision, seeing flashes or spots in vision ENT HEENT: Denies dizziness, headache(s), loss taste/smell or sore throat Cardiovascular Cardiovascular: Denies chest pain, dizziness, dyspnea, irregular heart rhythm, leg edema, palpitations, rapid heart rate or vomiting Respiratory/Chest Respiratory/Chest: Denies chest tightness, cough, dyspnea or breast pain Gastrointestinal Gastrointestinal: Denies abdominal pain, anorexia, constipation, cramping, diarrhea, hemorrhoids, vomiting or weight changes Genitourinary Genitourinary: Denies dysuria, flank pain, genital lesions, genital pain, urinary frequency or urinary urgency Musculoskeletal Musculoskeletal: Denies back pain, difficulty walking, joint pain, limited range of motion, muscle cramps or numbness Integumentary Integumentary: Denies lesions or unusual bruising Neurologic Neurologic: Denies abnormal movements, abnormal speech, dizziness, numbness, seizure-like activity or syncope Psychiatric Psychiatric: Denies anxiety, behavioral changes, change in appetite, change in libido, cognitive impairment, confusion, depression, difficulty concentrating, hallucinations or suicidal thoughts Endocrine Endocrinology: Denies excessive sweating, polydipsia or polyuria Hematologic/Lymphatic Hematologic/Lymphatic: Denies easy bleeding, easy bruising or lymphadenopathy Allergic/Immunologic Allergic/Immunologic: Denies itchy eyes, lip swelling, seasonal rhinorrhea, rhinitis, throat swelling, tongue swelling, eczemia, wheezing or asthma Physical Exam Const alert, oriented x3, no apparent distress and healthy appearing General Appearance: cooperative; Negative for anxious HEENT normocephalic Face and Sinus: normal facial exam Eyes EOMs intact bilaterally and no scleral icterus General Eye: normal appearance of both eyes Neck full ROM and supple Lymph Lymphatic: no lymphadenopathy noted Chest Chest: abnormal inspection of the chest Resp normal respiratory effort Effort and Inspection: able to speak in complete sentences GI soft to palpation and non-tender Inspection: gravid Palpation: soft; Negative for tender Back/Spine no CVA tenderness Extremity normal to inspection, full ROM and no clubbing, cyanosis or edema General Extremity: Negative for calf tenderness or edema Skin Lesions: no lesions Rashes: no rashes Psych mental status grossly normal Labs Labs Labs: Blood Type A POSITIVE Antibody Screen NEGATIVE Hct 33.8 % (37-47) L Hgb 11.1 g/dL (12.0-15.0) L Obstetrics Ultrasound Syphilis Total Ab Non-reactive Rubella IgG Antibody Reactive (Nonreactive) Hep Bs Antigen Non-Reactive (Nonreactive) Hepatitis C Antibody Non-Reactive (Nonreactive) Chlamydia DNA (MICHAEL) Negative (Negative) N.gonorrhoeae DNA (MICHAEL) Negative (Negative) HIV 1&2 Antibody Non-Reactive (Nonreactive) Glucose 1 Hr 50 gm 86 mg/dL (70-140) Rhogam given: No Assessment & Plan (1) Polyhydramnios: COMMENT: KIMMY is 22 on 09/10/23 (2) COVID-19 affecting , antepartum: COMMENT: 07/25 COVID +, asa 81 mg daily, US 36 weeks (3) Morbid obesity with BMI of 45.0-49.9, adult: COMMENT: growth q4 weeks weekly after 34 weeks: 08/20: 71% (4) : QUALIFIERS: Weeks of gestation: 38 weeks Qualified Code(s): Z3A.38 - 38 weeks gestation of COMMENT: gbs neg,discussed genetic & carrier testing, nl GCT (5) DVT (deep venous thrombosis): COMMENT: neg coag workup. Hx while on an ocp and post surgery. on lovenox sq (6) Supervision of high-risk : COMMENT: PRR , THAD 09/22/23 PC Jose Guadalupe, Akanksha epilepsy (7) Epilepsy: COMMENT: neurologist- , on meds- Keppra, gets monthly bloodwork with them. no seizures x 7 years PLAN: Plan Patient presents IOL, plan management for with rodriguez/ pitocin/AROM pending her vaginal exam today Pain management: plans epidural. GBS negative. Management of any complications: epilepsy, dvt, morbid obesity, polyhdyramnios I have reviewed the [facility] and made any clinically relevant updates.
[2023-09-17] MEDS: Lactated Ringers 1,000 ML 50 ML IV (08:35)
[2023-09-17] MEDS: 0.9% Normal Saline Single 100 ML IV.SOLN. INTRA-UTER (08:40)
[2023-09-17 09:11] LABS: Absolute Neutrophil Count 7.2 X10^3/uL (2.0-7.7); Basophil# 0.03 X10^3/uL; Basophil% 0.3 % (0-1); Eosinophil# 0.07 X10^3/uL; Eosinophils% 0.7 % (0-5); Hematocrit 33.1 % (37-47); Hemoglobin 10.8 g/dL (12.0-15.0); Lymphocyte % 20.7 % (19-41); Mean Corp Hgb Conc 32.6 g/dL (32-36); Mean Corpuscular Hgb 29.6 pg (27.0-32.0); Mean Corpuscular Volume 90.7 fL (81-99); Monocyte# 0.35 X10^3/uL; Monocyte% 3.6 % (0-10); NRBC Flagged by Analyzer 0 % (0-5); Neutrophil # 7.16 X10^3/uL (2.7-7.7); Platelet Count 244 K/mm3 (150-450); RBC Distribution Width CV 16.3 % (11.6-14.6); RBC Distribution Width SD 52.9 fl (35.1-43.9); Red Blood Count 3.65 M/mm3 (4.2-5.4); White Blood Count 9.7 K/mm3 (4.4-11.0)
[2023-09-17] MEDS: Oxytocin 15 Units/NS 250ml 15 UNITS/250 ML IV.SOLN 2 UNITS IV (09:54)
[2023-09-17 10:17] LABS: Syphilis Antibodies Non-reactive
--- NOTE | 2023-09-17 12:40 | PCM.PN.BLA ---
Progress Note Mgmt Consultant, Rosangela Ruiz placed a rodriguez bulp in the cervix. This was in for 1.5 hours. rodriguez bulb is now out and she consents to AROM and FSE placement. current tracing: FHT: Moderate variability reactive no decelerations category I tracing [place]: q 2-4 min Contractions c: 5/70/-3, membranes ruptured with clear fluid (marked amount) this was performed with the FSE. head was engaged on the cervix and the patient was sat upward. A/P: successful SROM. continue pitocin epidural prn. continue co-management with carburetor expert.
[2023-09-17] MEDS: LACTATED RINGERS 500 ML 999 ML IV (13:24)
[2023-09-17] MEDS: fentaNYL-bupivacaine (epidural) 100 ML BAG EPIDURAL (14:40)
[2023-09-17] MEDS: Ondansetron 4 MG/2 ML Vial IV (15:04)
--- NOTE | 2023-09-17 17:46 | OP.PCM_ITS ---
Assessment & Plan (1) (spontaneous vaginal delivery): Maternal Data Information THAD Calculator Estimated Delivery Date Method Current WG Current Estimate 09/22/23 LMP (Certain) 39w 2d Other Estimates 09/17/23 Ultrasound #1 40w 0d
--- NOTE | 2023-09-17 17:46 | EX.PCM.OBRPT ---
Assessment & Plan (1) (spontaneous vaginal delivery): COMMENT: LC IOL for unstable lie. boy:Tae Maternal Data Information THAD Calculator Estimated Delivery Date Method Current WG Current Estimate 09/22/23 LMP (Certain) 39w 2d Other Estimates 09/17/23 Ultrasound #1 40w 0d Final THAD: 09/22/23 Vaginal Delivery Maternal Presentation Maternal Presentation: Medically Indicated Induction Maternal Presentation: at 39+2 admitted for IOL for unstable lie, morbid obesity. rodriguez bulb placed with pitocin, AROM for large amounts of clear fluid. variables noted with 5 minute prolong deceleration to 90s and found to be fully dilated. Type of Induction: Pitocin and Rodriguez Bulb Medical Reason for Induction: Maternal Medical Condition: list: (unstable lie, morbid obesity) Operative Information Date of Procedure: 09/17/23 Pre-Operative Diagnosis: see problem list Post-Operative Diagnosis: Surgery / Procedure Performed: Spontaneous Vaginal Delivery Type of Anesthesia: Epidural Drain: Rodriguez to straight drain Estimated Blood Loss: 200 Time of Delivery: 17:18 Findings Description of Procedure: Dr. Mcneil aware of decelerations 1700 and at bedside to evaluate. decelerations continued to 70s during second stage. Patient began pushing and delivered the head in the PAOLO presentation. Dr. Mcneil present during delivery for decelerations. The head was delivered atraumatically and a loose nuchal cord ?1 was identified and easily reduced over the 's head. The anterior and posterior shoulders delivered without complication followed by the rest of the infant and the infant was placed on the maternal abdomen. Delayed cord clamping was employed for approximately 60 seconds. Cord was clamped and cut and gentle traction was applied to the cord and the placenta delivered spontaneously immediately following it was noted to be intact with three-vessel cord. The perineum and vagina were inspected and noted to have second degree laceration, repaired in usual fashion. EBL was 200cc. Patient and tolerated delivery well. baby boy: Tae Presentation: Vertex Amniotic Membrane Rupture Type: Artificial Amniotic Fluid Description: Clear Placental Delivery Description: Spontaneous Placenta Disposition: [facility] Cord Vessel Description: 3 Vessels Cord Entanglement: Around neck x 1, loose Nuchal Cord Compression: With compression Cord Gases: ABG A Gender: Male (1 minute): 9 (5 minute): 9 Delayed Cord Clamping: Yes Post Vaginal Delivery Medications Given After Delivery: IV Pitocin Episiotomy Description: None Laceration: 2nd degree Procedures Urinary/Genital [id number]: [id number] Vaginal Delivery [facility]
--- NOTE | 2023-09-17 17:58 | DCINST_ITS ---
Discharge Instructions Diet Discharge Diet: No restrictions Activity Discharge Activity: May Not Drive and May Shower May resume sexual activity in: 6 weeks Weight Bearing Status: Full weight bearing Dressing / Incision Call your doctor if your incision/area has: Sudden Increased Bleeding, Increased Pain/ Swelling and Foul Smelling Discharge Call your doctor if you observe: Fever of 101 or Higher, Numbness or Tingling, Change in Color, Inability to urinate, Inability to have a bowel movement, Using more than 1 pad per hour, Shortness of breath, Dizziness, Fainting spells, Chest pain, Calf discomfort and Uncontrolled pain Follow Up Care Please Follow Up With: Rosangela Ruiz CNM When: 6 weeks , please call office to make an appointment. Congratulations on the of your baby! Test Results: Test results from this visit will be discussed in further detail at your follow- up appointment, if applicable. Discharge Plan Admission Admit Date/Time: 09/17/23 07:00 Attending Provider: Rosangela Ruiz Primary Care Provider: Beatriz De La Garza Discharge Orders/Prescriptions Prescriptions: No Action levetiracetam [Keppra] 1,000 mg tablet 2,500 mg PO BID sertraline [Zoloft] 50 mg tablet 50 mg PO DAILY Qty: 90 4RF lamotrigine [Lamictal] 100 mg tablet 600 mg PO BID Hold Instructions: per order famotidine [Pepcid] 20 mg tablet 20 mg PO DAILY Qty: 90 2RF PNV cmb#95-ferrous fumarate-FA 1 EACH tablet 1 each PO DAILY lamotrigine 150 mg tablet 300 mg PO Q12H enoxaparin [Lovenox] 40 mg/0.4 mL syringe 40 mg SC Q12H 30 Days Qty: 24 12RF Referrals / Follow Up: Beatriz De La Garza MD [Primary Care Provider] -
[2023-09-17] MEDS: Oxytocin 15 Units/NS 250ml 15 UNITS/250 ML IV.SOLN 83 UNITS IV (18:00)
[2023-09-17] MEDS: Enoxaparin 40 MG/0.4 ML Syringe SC (20:53)
[2023-09-17] MEDS: Sertraline 50 MG Tablet PO (20:54)
[2023-09-17] MEDS: lamoTRIgine 150 MG Tablet 300 MG PO (20:56)
[2023-09-17] MEDS: levETIRAcetam 500 MG Tablet 2500 MG PO (21:00)
[2023-09-17] MEDS: 0.9% Saline Lock 10 ML Syringe IV (21:30)
[2023-09-18 00:07] VITALS: BP 139/66; PULSE 88; RESP 16; TEMP 36.4; O2SAT 98
[2023-09-18 03:11] VITALS: BP 119/58; PULSE 79; RESP 18; TEMP 36.4; O2SAT 97
--- NOTE | 2023-09-18 07:37 | PCM.PN.OB ---
Subjective Subjective Patient doing well without complaints. Tolerating PO. Ambulating and voiding without difficulty. Feeding well. Denies chest pain, shortness of breath, calf pain/swelling, fevers, chills, lightheadedness. Objective Data Objective Data Vital Signs: Vital Signs Temp Pulse Resp BP Pulse Ox O2 Del Method 97.6 F L 79 18 119/58 L 97 Room Air 09/18/23 03:11 09/18/23 03:11 09/18/23 03:11 09/18/23 03:11 09/18/23 03:11 09/18/23 03:11 Oxygen Delivery Method Room Air Weight: 271 lb 2.697 oz Body Mass Index (BMI) 46.5 Intake & Output: Intake and Output for Last 24 Hours 09/16/23 09/17/23 09/18/23 23:59 23:59 23:59 Intake Total 1708.46 / 1708.46 Output Total 900 / 1300 800 / 800 Balance 808.46 / 408.46 -800 / -800 Lab / Micro Data Attestation: I reviewed the patient's lab results. 09/17/23 08:35 Labs: Laboratory Results - last 24 hr 09/17/23 08:35: WBC 9.7, RBC 3.65 L, Hgb 10.8 L, Hct 33.1 L, MCV 90.7, MCH 29.6, MCHC 32.6, RDW Std Deviation 52.9 H, RDW Coeff of [place] 16.3 H, Plt Count 244, MPV 11.0, Immature Gran % (Auto) 0.700, Neut % (Auto) 74.0 H, Lymph % (Auto) 20.7, [place] % (Auto) 3.6, Eos % (Auto) 0.7, Baso % (Auto) 0.3, Absolute Neuts (auto) 7.2, Absolute Lymphs (auto) 2.00, Nucleated RBC % 0, Syphilis Total Ab Non-reactive, Blood Type A POSITIVE, Antibody Screen NEGATIVE ROS Constitutional Constitutional: Reports systems reviewed and no addt'l complaints, except as documented; Denies anorexia or headache(s) Cardiovascular Cardiovascular: Reports systems reviewed and no addt'l complaints, except as documented; Denies dizziness, dyspnea, nausea or tachypnea Respiratory/Chest Respiratory/Chest: Reports systems reviewed and no addt'l complaints, except as documented; Denies cough, dyspnea, shortness of breath at rest or tachypnea Gastrointestinal Gastrointestinal: Reports systems reviewed and no addt'l complaints, except as documented; Denies abdominal pain, constipation or nausea Genitourinary Genitourinary: Reports systems reviewed and no addt'l complaints, except as documented; Denies burning urination, difficulty urinating, dysuria, urinary frequency or urinary incontinence Musculoskeletal Musculoskeletal: Reports systems reviewed and no addt'l complaints, except as documented Integumentary Integumentary: Reports systems reviewed and no addt'l complaints, except as documented Neurologic Neurologic: Reports systems reviewed and no addt'l complaints, except as documented; Denies abnormal speech, dizziness or headache(s) Psychiatric Psychiatric: Reports systems reviewed and no addt'l complaints, except as documented Endocrine Endocrinology: Reports systems reviewed and no addt'l complaints, except as documented Hematologic/Lymphatic Hematologic/Lymphatic: Reports systems reviewed and no addt'l complaints, except as documented Physical Exam Const alert, oriented x3 and no apparent distress Neck full ROM Resp normal respiratory effort, normal air movement and no retractions Effort and Inspection: able to speak in complete sentences and symmetric chest movement GI soft to palpation Bladder / Kidney Exam: bladder normal to palpation Uterus Palpation: uterus fundus firm Extremity normal to inspection and full ROM Psych mental status grossly normal, thought process normal and cooperative Assessment & Plan (1) (spontaneous vaginal delivery): COMMENT: LC IOL for unstable lie. boy:Tae PLAN: s/p PPD # 1. routine post delivery care 2. breast feeding- support given 3. rh positive 4. rubella immune 5. discharge home today (2) Epilepsy: COMMENT: neurologist- , on meds- Keppra, gets monthly bloodwork with them. no seizures x 7 years (3) Breech presentation: COMMENT: plan primary cs 09/17 with SM- resolved. IOL 09/17/23, C/S also scheduled 09/17 noon (4) DVT (deep venous thrombosis): COMMENT: neg coag workup. Hx while on an ocp and post surgery. on lovenox sq Charges/Coding Multi Select Codes Urinary/Genital Urinary/Genital CPT Codes: No Charge
--- NOTE | 2023-09-18 07:38 | DCINST_ITS ---
Discharge Instructions Diet Discharge Diet: No restrictions Activity Discharge Activity: Return to Normal Activity May resume sexual activity in: 6 weeks Weight Bearing Status: Full weight bearing Dressing / Incision Call your doctor if your incision/area has: Sudden Increased Bleeding, Increased Pain/ Swelling and Foul Smelling Discharge Call your doctor if you observe: Fever of 101 or Higher, Numbness or Tingling, Change in Color, Inability to urinate, Inability to have a bowel movement, Using more than 1 pad per hour, Shortness of breath, Dizziness, Fainting spells, Chest pain, Calf discomfort and Uncontrolled pain Follow Up Care Please Follow Up With: Rosangela Ruiz CNM When: Please call the office to schedule your follow up appointment in 6 weeks. If you had high blood pressure please call to schedule an appointment in 2 weeks. Test Results: Test results from this visit will be discussed in further detail at your follow- up appointment, if applicable. Discharge Plan Admission Admit Date/Time: 09/17/23 07:00 Attending Provider: Rosangela Ruiz Primary Care Provider: Beatriz De La Garza Discharge Orders/Prescriptions Prescriptions: No Action levetiracetam [Keppra] 1,000 mg tablet 2,500 mg PO BID sertraline [Zoloft] 50 mg tablet 50 mg PO DAILY Qty: 90 4RF lamotrigine [Lamictal] 100 mg tablet 600 mg PO BID Hold Instructions: per order famotidine [Pepcid] 20 mg tablet 20 mg PO DAILY Qty: 90 2RF PNV cmb#95-ferrous fumarate-FA 1 EACH tablet 1 each PO DAILY lamotrigine 150 mg tablet 300 mg PO Q12H enoxaparin [Lovenox] 40 mg/0.4 mL syringe 40 mg SC Q12H 30 Days Qty: 24 12RF Referrals / Follow Up: Beatriz De La Garza MD [Primary Care Provider] - Disposition Disposition (needs filled in before D/C Order can be placed): Home, Self Care
[2023-09-18] MEDS: Enoxaparin 40 MG/0.4 ML Syringe SC (08:06)
[2023-09-18 08:10] VITALS: BP 138/63; RESP 16; TEMP 36.2
[2023-09-18] MEDS: levETIRAcetam 500 MG Tablet 2500 MG PO (10:18)
[2023-09-18] MEDS: lamoTRIgine 150 MG Tablet 300 MG PO (10:18)
[2023-09-18] MEDS: Prenatal Vits Tablet 1 TABLET PO (10:18)
[2023-09-18 12:49] VITALS: BP 128/71; PULSE 81; RESP 14; TEMP 36.6
[2023-09-18 17:24] VITALS: BP 114/71; PULSE 74; RESP 16; TEMP 36.4
--- NOTE | 2023-09-20 10:00 | CASEMGMT ---
Social Work Assessment Labor and Delivery Unit Patient Address:[address] [place] [address] [place] [address] Phone number: [phone] Date of Referral: 09/17/23 Time of Referral:? [id number] Referred By: Rosangela Ruiz Date of Intervention: ??09/18/23 Time of Intervention:? 1030 Reason for Referral:? mental health Sw completed chart review and acknowledges social work consult due to maternal mental health history. Sw presented to bedside and introduced self to mother of baby (MOB- Anita) and father of baby (FOB- Gomez). Sw explained reason for sw consult and completed psychosocial assessment. Sw asked FOB to step out momentarily so that MOB could complete [place] Depression Scale. FOB did so respectfully and without issue. History obtained from: medical records, MOB and FOB. Household composition: Currently residing in the family home is HANS MERCHANT their 2 year old son, Laureano (: 01/25/2021) and now baby boy. Parents deny any issues or concerns with their housing at this time. Patient's parent/guardian status:? ?MOB states that she and HANS have been together for 8 years. MOB states that they met on a dating site. While meeting with MOB privately she denies any concerns of domestic violence or intimate partner violence. Medical History: MAYUR is 33 year old, female who is 3, para 1-now 2 following labor and delivery of baby. MAYUR received routine care with [facility] during . MAYUR delivered baby boy on 09/17/23 via vaginal delivery. Baby boy, named Tae, was born weighing 8lb 10oz and his apgars were 9 and 9 at one and five minutes of life respectfully. MOB states that she is and that is going well. MOB states that baby will be followed by Dr. Lassiter for pediatrics. ? Educational Status:? Both parents obtained Bachelor's degrees. Parents deny any concerns regarding learning, reading, or comprehension. Financial Status: Both parents are gainfully employed outside of the home. 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 MAYUR works for [employer] and is able to take 12 weeks off of work. Supplies:?Parents have obtained all necessary baby supplies including: car seat, safe sleep space, clothes, diapers, wipes and a breast pump. ? Childcare/Caregiver(s):?MAYUR states that when both parents are working they have grandparents who are able to provide childcare assistance for them several days out of the week, and then they have a day care provider that they use for the remaining days of the week. Transportation:?? Both parents have their drivers license and reliable means of transportation. No transportation barriers at this time. Programs/Agencies Involved: ?Parents deny any current linkage to community resources at this time. Sw provided parents with list of community resources for them to reference should any needs or concerns present themselves. ?? Children Services/Legal Issues:???No history of Children Services involvement, no issues or concerns warranting referral at this time. Behavioral Health Issues: ??Mental Health History:??HANS denies mental health history. MAYUR states that she has been diagnosed with anxiety and did experience depression following the of her first son. MAYUR states that her symptoms at that time included her feeling extremely withdrawn, and she had thoughts that her family and her baby were better off if she was not around. MAYUR stated that she did not have thoughts of hurting herself, she just though that she should pack her bag and leave them. MAYUR became tearful and reports that she is aware of signs and symptoms to be on the look out for. MAYUR stated that she feels more prepared this time around, stating that she is not putting a lot of pressure on herself to do everything perfectly, including breast feeding. MAYUR stated that she is open to feeding her baby whatever way suits herself and her baby the best. MAYUR states that at this time breast feeding is going well, but she also has a can of formula at home should she start to struggle and that directly impacts her mental health. Sw provided support and validation of MOB feelings. ?MAYUR completed [place] Depression Scale, her score was a 5. Sw provided education and support. Substance Use History:?MAYUR denies substance use prior to and during . ? Family History:?No family history reported of significant mental health diagnoses and substance use.? Drug Screens: ??No urine screens observed during chart review. Family/Social Stressors:? Family deny any current stressors or concerns at this time. Sw provided parents with list of community resources for them to reference should any needs or concerns arise. Support Systems: Parents report that they have a lot of friends and family members who are supportive. Depression/Shaken Baby/Safe Sleeping:? Sw educated parents on signs and symptoms of baby blues and depression. Literature provided on these topics for parents to review at their leisure. Parents express understanding. Sw also educated parents on shaken baby prevention and ABCs of safe sleep. Parents express understanding. ASSESSMENT:? MOB and baby admitted following labor and delivery. MOB and FOB talkative and open during psychosocial assessment. Parents receptive to sw involvement and support. Parents understanding of signs and symptoms of baby blues and depression/ anxiety to be on the lookout for. MOB open to supplementing with formula with baby after putting a lot of pressure on herself to exclusively breastfeed her first baby, which she correlates a connection to her struggles with depression. PLAN:? MOB and baby to be discharged when medically ready. ?No other services requested or indicated. Jose Kang, INSOLE PRESSER, CRAB FISHERMAN
== END 2023-09-18 18:35 | disposition home or self-care (01) | DRG 806 ==
PROVIDERS: Obstetrics & Gynecology; Admitting Provider Registered Nurse; PCP Family Medicine; Visit Provider Registered Nurse
PROC: (CPT 59514; principal; 2023-09-17 11:45)
DX: O32.0XX0 Maternal care for unstable lie, not applicable or unspecified (principal); Z37.0 Single live birth; O99.354 Diseases of the nervous system complicating childbirth; E66.01 Morbid (severe) obesity due to excess calories; G40.909 Epilepsy, unspecified, not intractable, without status epilepticus; O40.3XX0 Polyhydramnios, third trimester, not applicable or unspecified; O76 Abnormality in fetal heart rate and rhythm complicating labor and delivery; Z3A.39 39 weeks gestation of pregnancy; O69.81X0 Labor and delivery complicated by cord around neck, without compression, not applicable or unspecified; Z79.01 Long term (current) use of anticoagulants; Z86.16 Personal history of COVID-19; O32.1XX0 Maternal care for breech presentation, not applicable or unspecified; O70.1 Second degree perineal laceration during delivery; O99.214 Obesity complicating childbirth; O69.2XX0 Labor and delivery complicated by other cord entanglement, with compression, not applicable or unspecified; Z86.718 Personal history of other venous thrombosis and embolism
CPT/HCPCS: 59025; 59050; 85025; 86780; 86850; 86900; 86901; 99221; J7120; A4216; G0378; J2405

== ENCOUNTER → 2024-05-01 | Outpatient (CLI) | payer OTHER, SELFPAY ==
--- NOTE | 2024-05-01 10:32 | RAD_ITS ---
STUDY: X-RAY - LEFT HAND REASON FOR EXAM: Female, 33 years old. HYPEREXTENSION INJURY/ATT 4TH MCP JOINT TECHNIQUE: 3 view(s) of the hand. COMPARISON: None. FINDINGS: Normal radiocarpal articulation. Normal distal radioulnar joint. Normal visualized carpal bones. Normal carpal articulations Normal carpometacarpal articulation of the thumb. Normal second through fifth carpometacarpal joints. Normal metacarpi. Normal metacarpophalangeal joint of the thumb. Normal interphalangeal joint of the thumb. Normal proximal and distal phalanges of the thumb. Normal metacarpophalangeal joints of the second through fifth fingers. Normal proximal and distal interphalangeal joints of the second through fifth fingers. Normal phalanges of the second through fifth fingers. The soft tissue structures are unremarkable. RAD/Hand Min 3 Views IMPRESSION: Normal x-ray examination of the hand. Electronically Signed: Jack Morse MD at 17:01 EDT ,
== END | disposition home or self-care (01) ==
PROVIDERS: PCP Family Medicine; Referring Provider Family Medicine; Visit Provider Family Medicine
DX: M79.645 Pain in left finger(s) (principal)
CPT/HCPCS: 73130

== ENCOUNTER 2024-06-18 18:00 | Outpatient (RCR) | payer OTHER, SELFPAY ==
--- NOTE | 2024-05-07 18:52 | HP.OTEVAL ---
Patient's Visit Information Visit Information Visit Information: MIRELA DAY is a 33 year old F, referred to Occupational Therapy by Dr. Beatriz De La Garza MD, with a diagnosis of L hand/ finger injury. Date of Evaluation: 05/07/24 Occupational Therapist: Jessica Vasquez Subjective Subjective: This 33 year old female arrives this date with referral due to hyperextension of L D4 at MCP approx 2 months ago. Per pt pain has gotten worse with prolonged use of hand. 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 pt reports an increase in pain with sustained use as well as resistive use of hand. Pt is R hand dominant. Pt has 2 children at home a 3 year old and 7 month old. plays piano at [employer] every sunday which does cause an increase in pain. Per pt pain has now radiated to MF, LF as well as running down arm toward elbow. Pain L hand: Current Pain Intensity: 3 Objective Objective/Observation: pt arrives this date very slight swelling noted in L hand however moving hand well. pt does present with natural hyperextension at MP joints and D3 DIP ulnar deviation of both hands. ROM ROM Comments: BUE AROM WFL however reporting pain with extension as well as finger opposition Strength Strength Comments: to test at a later date Edema Wrist: L 19 cm R 18 cm Sensation Sensation Comments: occ numbness and tingling in L hand Quick DASH-Disab of Arm,Shoulder& Hand Quick DASH Score: 27.2725 Goals Goal:ROM equal to unaffected hand: Yes Goal:Pocketbook Maker/Pinch strength at least 75% of unaffected hand: Yes Goal:No pain with affected hand use: Yes Goal:Full use of affected hand in daily activities including work: Yes Other Goal: pt will improve quick dash score by 5 points or more (27.27) in order to promote increased use of L hand during functional tasks pt will demonstrate 100% adherence to orthosis/ kingsley taping/ taping for L hand D4 joint protection by third session Rehabilitation General Assessment: This 33 year old female presents due to L D4 injury caused from hyperextending finger which is now causing pain at D3 and D5 as well as radiating down to lateral epicondyle with prolonged use. Pt AROM is within normal limits at this time however pain with wrist extension as well as digit opposition and prolonged use of hand. pt does report occ tingling of L hand. pt is limited in daily use of L hand as result of pain impacting function indicating need for OT services 1x a week for 4-6 weeks. Rehabilitation Potential: Good Anticipated Interventions Anticipated Interventions: A/AAROM/PROM, Strengthening, Edema Control, Triggerpoint Release, Modalities, Orthoses, Joint Protection/Energy Conservation, Ergonomic Education, Education re Diagnosis and Home Program Visit Plan Frequency: 1x/Week Duration: 4-6 Weeks General Plan: kingsley taping K tape -- caution due to possible skin irritation AROM/AAROM/PROM trigger point release pain management modalities stretch isometric strengthening TEXT: Thank you for the opportunity to evaluate your patient. For Medicare and Medicare HMO plans, please review the plan of care and approve it. It will need to be FAXED BACK to us at [phone] for Medicare purposes. Please let me know if there are questions or concerns regarding this plan of care. Physician Signature: Date:
--- NOTE | 2024-09-03 18:00 | HP.OT.NRP ---
Patient Information Patient Information: MIRELA DAY was seen in my office for initial evaluation on 05/07/24. The following Plan of Care was established for this patient: POC Established Initial Frequency: 1x/Week Initial Duration: 4-6 Weeks Plan: blocking exercise trigger point release pain modalities kingsley taping Anticipated Interventions Anticipated Interventions: A/AAROM/PROM, Strengthening, Edema Control, Triggerpoint Release, Modalities, Orthoses, Joint Protection/Energy Conservation, Ergonomic Education, Education re Diagnosis and Home Program Last Seen Last Seen: This patient was last seen in our office 06/18/24. Pertinent comments regarding their Occupational therapy will appear below: This 33 year old female seen for L hand hyperextension of D4. Pt seen for 7 visits with progress made in decreased pain improved functional use of L hand. discharge at this time due to lapse in time since last service. At this point I will be discontinuing this patient from occupational therapy. I would be happy to see this patient again in the future if found appropriate by the physician. Thank you! Jessica Vasquez
== END 2024-06-18 19:00 | disposition home or self-care (01) ==
LOC: OT 18:00
PROVIDERS: PCP Family Medicine; Referring Provider Family Medicine; Visit Provider Family Medicine
DX: S69.82XD Other specified injuries of left wrist, hand and finger(s), subsequent encounter (principal)
CPT/HCPCS: 97035; 97110; 97140; 97165; 97530

== ENCOUNTER → 2024-08-06 | Outpatient (CLI) | payer OTHER, SELFPAY ==
--- OUTSIDE RECORDS SUMMARY | 2024-08-06 10:20 | XMS RPT_ITS | CCD ---
Author Organization [facility] [employer] Care Team Providers Care Maintenance Services Dispatcher Name Role Phone Manjit Ron Unavailable Unavailable NewjoseManjit grant Unavailable Unavailable Danielle, Neris O Unavailable Unavailable Danielle, Neris O Unavailable Unavailable Asad Sorto Unavailable Unavailable Asad Sorto Unavailable Unavailable Danielle, Neris O Unavailable Unavailable Danielle, Neris O Unavailable Unavailable Danielle, Neris O Unavailable Unavailable Danielle, Neris O Unavailable Unavailable Danielle, Neris O Unavailable Unavailable Danielle, Neris O Unavailable Unavailable Danielle, Neris O Unavailable Unavailable Danielle, Neris O Unavailable Unavailable Dupo, Lida S Unavailable Unavailable Danielle, Neris O Unavailable Unavailable Dupo, Lida S Unavailable Unavailable Dupo, Lida S Unavailable Unavailable Dupo, Lida S Unavailable Unavailable Danielle, Neris O Unavailable Unavailable Danielle, Neris O Unavailable Unavailable Danielle, Neris O Unavailable Unavailable Danielle, Neris O Unavailable Unavailable Danielle, Neris O Unavailable Unavailable Danielle, Neris O Unavailable Unavailable Fernando Talbot Unavailable Unavailable Fernando Talbot Unavailable Unavailable Danielle, Neris O Unavailable Unavailable Manjit Ron Unavailable Unavailable NewbillManjit Unavailable Unavailable Danielle, Neris O Unavailable Unavailable Danielle, Neris O Unavailable Unavailable Danielle, Neris O Unavailable Unavailable Danielle, Neris O Unavailable Unavailable Danielle, Neris O Unavailable Unavailable Danielle, Neris O Unavailable Unavailable Danielle, Neris O Unavailable Unavailable Danielle, Neirs O Unavailable Unavailable Danielle, Neris O Unavailable Unavailable ANNE PINA Attending Unavailable Danielle BOSCH, Neris Lozada Primary Care Provider Neris Santos MD Primary Care Provider SHAHANA COSTELLO Referring Unavailable BEATRIZ CEVALLOS Primary Care Unavailable ANGELA SANTOS Attending Unavailable NERIS SANTOS Referring Unavailable NERIS SANTOS Primary Care Unavailable АННА TERESA Attending Unavailable Neris Santos MD Primary Care Provider Allergies Allergy Classification Reported Allergen(s) Allergy Type Date of Onset Reaction(s) Facility (1 source) acetaminophen / oxyCODONE; Translations: [Percocet 2.5/325] [facility] Latex; Translations: [Latex] Propensity to adverse reactions to drug (disorder) 6 Rash [facility] (1 source) naproxen; Translations: [Aleve] [facility] No Known Allergies; Translations: [No Known Allergies] Propensity to adverse reactions to drug (disorder) [facility] (18 sources) Acetaminophen / oxyCODONE; Translations: [OXYCODONE-ACETAM INOPHEN] Drug Allergy 7 Rash, Itching [facility] (18 sources) Naproxen; Translations: [NAPROXEN SODIUM] Drug Allergy 5 Hives [facility] Medications Current Medications Medication Drug Class(es) Dates Sig (Normalized) Sig (Original) folic acid 1 mg oral tablet (20 sources) Start: 10-22-2023 End: 10-21-2024 take 1 tablet by mouth twice daily folic acid 1 mg tablet Indications: 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 Take 1 tablet by rena th two times a day. 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 360 tablet 0 07/25/2023 08/08/2023 Discontinued Start: 06-29-2023 End: 07-25-2023 take 1 tablet by mouth once daily at breakfast lamoTRIgine (LAMICTAL) 100 mg tablet Take 1 tablet by mouth daily with breakfast. 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 0 06/29/2023 07/25/2023 Discontinued Start: 03-07-2023 End: 05-11-2023 take 2 tablets by mouth twice daily lamoTRIgine (LAMICTAL) 25 mg tablet Take 2 tablets by mouth twice daily. 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 180 tablet 3 11/08/2023 11/07/2024 Active Comment on above: Take 1 tablet by rena th twice daily. TAKE ONE TABLET BY M OUT TWICE A DAY Take 2 tablets by mo uth twice daily. Take with the 150 mg tablet Take 1 tablet by rena th twice daily. Take with the 150 mg tablet Take 2 tablets by mo uth daily with breakfast AND 2 tablets every evening. Take 1 tablet by rena th daily with breakfast AND 2 tablets every evening. Take 1 tablet by rena th daily with breakfast. Take with the 150 mg tablet Take 1 tablet by rena th two times a day. 24 hr levETIRAcetam 750 mg extended release oral tablet (20 sources) Start: End: 4 take 2 tablets by mouth twice daily levETIRAcetam XR (KEPPRA XR) 500 mg 24 hr tablet Take 2 tablets by mouth two times a day. Take with the 750 mg tablet. 2500 mg BID 360 tablet 3 08/14/2023 08/13/2024 Active Start: 02-06-2023 End: 10-23-2023 take 1 tablet by mouth once daily in the evening levETIRAcetam XR (KEPPRA XR) 500 mg 24 hr tablet Take 1 tablet by mouth once daily. Take with the 750 mg tablet. 2250 mg in the am and 2750 mg in the pm. 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 360 tablet 3 10/22/2023 10/21/2024 Active Comment on above: Take 2 tablets by mo uth twice daily. Take 1 tablet by rena th daily at bedtime. Take 1 tablet by rena th twice daily. Take 3 tablets by mo uth twice daily. Take 1 tablet by rena th once daily. Take with the 750 mg tablet. 2250 mg in the am and 2750 mg in the pm. Take 3 tablets by mo uth two times a day. Take 2 tablets by mo uth two times a day. Take with the 750 mg tablet. 2500 mg BID Take 2 tablets by mo uth two times a day. Take with the 500 mg tabelts. Total daily dose 2500 mg BID Take 2 tablets by mo uth two times a day. sertraline 50 mg oral tablet (19 sources) Serotonin Reuptake Inhibitor Start: 04-15-2024 take 1 tablet by mouth once daily at bedtime sertraline (ZOLOFT) 50 mg tablet Indications: Anxiety and depression take one tablet by mouth every day at bedtime 90 tablet 1 04/15/2024 Active Start: 10-25-2022 End: 10-18-2024 take 1 tablet by mouth once daily at bedtime sertraline (ZOLOFT) 50 mg tablet Indications: Anxiety and depression Take 1 tablet by mouth daily at bedtime. 90 tablet 3 10/19/2023 10/18/2024 Active Comment on above: Take 1 tablet by rena th daily at bedtime. Vitamin B Complex (17 sources) Start: 08-18-2014 take 1 tablet by mouth once daily vitamin b complex (SUPER QUINTS B-50) tab Take 1 tablet by mouth once daily. 0 08/18/2014 Active Comment on above: Take 1 tablet by rena th once daily. Completed/Discontinued Medications Medication Drug Class(es) Dates Sig (Normalized) Sig (Original) biotin/folic ac/vit Bcomp,C/Zn (FXZIUB-LY-[id number] B COMP & C-ZINC ORAL) (2 sources) End: 10-25-2022 biotin/folic ac/vit Bcomp,C/Zn (UWYTQU-YC-ITU B COMP & C-ZINC ORAL) Take by mouth. 0 10/25/2022 Discontinued biotin/folic ac/ vit Bcomp,C/Zn (PYIBYV-NN-QYE B COMP & C-ZINC ORAL) Take by mouth. 0 Active Comment on above: Take by mouth. calcium carbonate/vitamin D2 (CALCIUM + VITAMIN D ORAL) (2 sources) End: 10-25-2022 take 1 tablet by mouth once daily calcium carbonate/vitamin D2 (CALCIUM + VITAMIN D ORAL) Take 1 tablet by mouth once daily. 0 10/25/2022 Discontinued take 1 tablet by mouth once candace y calcium carbonate/vitamin D2 (CALCIUM + VITAMIN D ORAL) Take 1 tablet by mouth once daily. 0 Active Comment on above: Take 1 tablet by rena th once daily. Problems Active Problems Problem Classification Problem Date Documented Da te Episodic/Chronic Anxiety disorders (2 sources) Mixed anxiety and depressive disorder; Translations: [Anxiety disorder, unspecified] Chronic Epilepsy; convulsions (20 sources) Refractory generalized convulsive epilepsy; Translations: [Generalized idiopathic epilepsy and epileptic syndromes, intractable, without status epilepticus] Onset: 04-25-2013 Chronic Other nutritional; endocrine; and metabolic disorders (17 sources) Severe obesity; Translations: [Morbid (severe) obesity due to excess calories] Onset: 04-25-2013 12-05-2018 Chronic Other nutritional; endocrine; and metabolic disorders (17 sources) Metabolic syndrome X; Translations: [Metabolic syndrome] Onset: 12-05-2018 12-05-2018 Chronic Past or Other Problems Problem Classification Problem Date Documented Da te Episodic/Chronic Phlebitis; thrombophlebitis and thromboembolism (17 sources) H/O: Deep vein thrombosis; Translations: [Personal history of other venous thrombosis and embolism] Onset: 12-05-2018 12-05-2018 Episodic Results Test Name Value Interpretation Reference Range Facility [facility] 10-25-[address] [facility] Telephone ([id number]) -------- MIRELA DAY ([id number]) 1990 F Date Time Provider Department 10/25/23 EMILY MCCAIN V NE50MN During your visit today, we recorded the following information about you: Kathleen Sifuentes 10/25/2023 10:49 AM Signed Form received: From (agency / facility): [facility] personnel security assistant (if given): Mirela Day Phone #: [phone] (home) Fax # : [phone] Information requested: Request for physician statement Patient of Dr. Mccain Forwarded to nurse. Coni Mora RN 10/25/2023 11:09 AM Signed VV on 10/22/2023 with Анна Teresa. Last seizure- 04/04/2021. Lab work last completed on 07/25/2023. Onset- 20 years. [facility] form routed to Dr. Mccain to review and sign via [employer]. LISHA Naranjo Nina, RN 10/25/2023 11:32 AM Signed [facility] form signed by Dr. Mccain via [employer]. Copies sent to [employer], pt e-mail and [facility] special unit via [employer]. Coni Mora RN Allergies As of Date: 10/25/2023 Noted Allergy Reaction ALEVE (NAPROXEN SODIUM) 02/19/2015 4 - Hives LATEX 05/29/2016 2 - Rash PERCOCET (OXYCODONE-ACETAMINOPHEN )05/14/2017 2 - Rash 9 - Itching Date Reviewed: 11/04/2018 Reviewed by: Aileen Bradshaw Ma - Fully Assessed Reason for Visit: Forms [913] Cmt: [facility] Prescriptions as of 10/25/2023 - lamoTRIgine (LAMICTAL) 100 mg tablet Take 1.5 tablets by mouth two times a day. - levETIRAcetam ER (KEPPRA XR) 750 mg 24 hr tablet Take 2 tablets by mouth two times a day. - folic acid 1 mg tablet Take 1 tablet by mouth two times a day. - sertraline (ZOLOFT) 50 mg tablet Take 1 tablet by mouth daily at bedtime. - sertraline (ZOLOFT) 50 mg tablet Take 1 tablet by mouth daily at bedtime. - vitamin b complex (SUPER QUINTS B-50) tab Take 1 tablet by mouth once daily. Problem List As Of Date 10/25/2023 Noted Resolved Generalized convulsive epilepsy (HCC) [G40.309] 04/25/2013 Class 3 severe obesity with body mass index (BM*04/25/2013 Metabolic syndrome [E88.810] 12/05/2018 History of DVT in adulthood [Z86.718] 12/05/2018 Encounter Status:[facility] by [facility][id number][facility] -------- BARBMIRELA Beth ([id number]) 1990 F Date Time Provider Department 09/18/23 EMILY MCCAIN V NE50MN During your visit today, we recorded the following information about you: Libertad Jo 09/18/2023 1:23 PM Signed General call : Full name of person calling: Mirela Day Relationship to patient: self Phone # : [phone] (home) Reason for call: Had baby yesterday. When should she adjust her medication back? Patient of Coni Veloz RN 09/18/2023 1:52 PM Signed Pre- doses: LEV ER 1500/1500 LTG 100/100 Current doses: LEV ER 2250/2250 LTG 250/300 Pt delivered baby on 09/17/2023. Routed for review and recommendation. LISHA Naranjo Kelly, APRN.GUILLERMINA 09/18/2023 2:03 PM Signed Decrease LTG by every 3 days to 100/150 Day 1-3: LTG 200/250 Day 4-6: LTG 150/200 Day 7-9: LTG 100/150 Decrease LEV by 500 mg every 3 days to 1500/1500 Day 1-3: LEV 2000/2000 Day 4-6: LEV 1750/1750 Day 7-9: LEV 1500/1500 John Myles APRN.Coni Mancilla RN 09/18/2023 2:14 PM Signed Called pt, left voicemail. MC message sent to pt, in this encounter, with new medication schedule. Pt will call the office with any questions/concerns. Coni Mora RN Allergies As of Date: 09/18/2023 Noted Allergy Reaction ALEVE (NAPROXEN SODIUM) 02/19/2015 4 - Hives LATEX 05/29/2016 2 - Rash PERCOCET (OXYCODONE-ACETAMINOPHEN )05/14/2017 2 - Rash 9 - Itching Date Reviewed: 11/04/2018 Reviewed by: Aileen Bradshaw Ma - Fully Assessed Reason for Visit: Patient Update [1234] Prescriptions as of 09/18/2023 - levETIRAcetam XR (KEPPRA XR) 500 mg 24 hr tablet Take 2 tablets by mouth two times a day. Take with the 750 mg tablet. 2500 mg BID - levETIRAcetam ER (KEPPRA XR) 750 mg 24 hr tablet Take 2 tablets by mouth two times a day. Take with the 500 mg tabelts. Total daily dose 2500 mg BID - lamoTRIgine (LAMICTAL) 150 mg tablet take one tablet by mouth twice a day - folic acid 1 mg tablet TAKE TWO TABLETS BY MOUTH TWICE A DAY - sertraline (ZOLOFT) 50 mg tablet Take 1 tablet by mouth daily at bedtime. - vitamin b complex (SUPER QUINTS B-50) tab Take 1 tablet by mouth once daily. Problem List As Of Date 09/18/2023 Noted Resolved Generalized convulsive epilepsy (HCC) [G40.309] 04/25/2013 Class 3 severe obesity with body mass index (BM*04/25/2013 Metabolic syndrome [E88.810] 12/05/2018 History of DVT in adulthood [Z86.718] 12/05/2018 Encounter Status:Closed by CONI MORA on 09/18/23 [facility] 08-14-[address] [facility] Telephone (NE50MN) -------- MIRELA DAY ([id number]) 1990 F Date Time Provider Department 08/14/23 EMILY MCCAIN V NE50MN During your visit today, we recorded the following information about you: Tanisha Montalvo 08/14/2023 12:03 PM Signed Medication Concern Person Calling [facility] Pharmacist Name of medication Keppra XR 500mg Concern with medication Pharmacy purvis s2 sets of instructions, needs clarification. Patient of Coni Veloz RN 08/14/2023 12:43 PM Signed Routed for new LEV prescription. From 07/25/2023 telephone encounter pt should be on LEV 2500/2500. LISHA Naranjo Kelly, APRN.GUILLERMINA 08/14/2023 1:57 PM Signed The following approved medication requests have been transmitted electronically. Requested Prescriptions Signed Prescriptions Disp Refills levETIRAcetam XR (KEPPRA XR) 500 mg 24 hr tablet 360 tablet 3 Sig: Take 2 tablets by mouth two times a day. Take with the 750 mg tablet. 2500 mg BID Authorizing Provider: JOHN MYLES levETIRAcetam ER (KEPPRA XR) 750 mg 24 hr tablet 360 tablet 3 Sig: Take 2 tablets by mouth two times a day. Take with the 500 mg tabelts. Total daily dose 2500 mg BID Authorizing Provider: JOHN MYLES APRN.GUILLERMINA Yaya Joen 08/15/2023 11:18 AM Signed General call : Full name of person calling: [employer] Relationship to patient: Pharmacist Phone # : [phone] Reason for call: Received new rx but still unclear. Would like a nurse to call back and clarify the script. Patient of Coni Veloz RN 08/15/2023 12:58 PM Signed Called pharmacy, verified that pt is on LEV XR 2500/2500. 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 Take with the 750 mg tablet. 2500 mg BIDDisp: 360 tabletRfl: 3 levETIRAcetam ER (KEPPRA XR) 750 mg 24 hr tabletTake 2 tablets by mouth two times a day. Take with the 500 mg tabelts. Total daily dose 2500 mg BIDDisp: 360 tabletRfl: 3 Prescriptions as of 08/15/2023 - levETIRAcetam XR (KEPPRA XR) 500 mg 24 hr tablet Take 2 tablets by mouth two times a day. Take with the 750 mg tablet. 2500 mg BID - levETIRAcetam ER (KEPPRA XR) 750 mg 24 hr tablet Take 2 tablets by mouth two times a day. Take with the 500 mg tabelts. Total daily dose 2500 mg BID - lamoTRIgine (LAMICTAL) 150 mg tablet take one tablet by mouth twice a day - folic acid 1 mg tablet TAKE TWO TABLETS BY MOUTH TWICE A DAY - sertraline (ZOLOFT) 50 mg tablet Take 1 tablet by mouth daily at bedtime. - vitamin b complex (SUPER QUINTS B-50) tab Take 1 tablet by mouth once daily. Problem List As Of Date 08/14/2023 Noted Resolved Generalized convulsive epilepsy (HCC) [G40.309] 04/25/2013 Class 3 severe obesity with body mass index (BM*04/25/2013 Metabolic syndrome [E88.810] 12/05/2018 History of DVT in adulthood [Z86.718] 12/05/2018 Prescriptions ordered this encounter Disp Refills Start End LEVETIRACETAM ER 500 MG TABLET,EXTEN* 360 * 3 08/14/2023 08/13/2024 Route: ORAL Sig: Take 2 tablets by mouth two times a day. Take with the 750 mg tablet. 2500 mg BID LEVETIRACETAM ER 750 MG TABLET,EXTEN* 360 * 3 08/14/2023 08/13/2024 Route: ORAL Sig: Take 2 tablets by mouth two times a day. Take with the 500 mg tabelts. Total daily dose 2500 mg BID Medications Discontinued During This Encounter Prescriptions - levETIRAcetam ER (KEPPRA XR) 750 mg 24 hr tablet (Discontinued) Take 3 tablets by mouth two times a day. - levETIRAcetam XR (KEPPRA XR) 500 mg 24 hr tablet (Discontinued) Take 1 tablet by mouth once daily. Take with the 750 mg tablet. 2250 mg in the am and 2750 mg in the pm. Encounter Status:Closed by JOHN MYLES on 08/14/23 [facility] 07-25-[address] [facility] Telephone (NE50MN) -------- MIRELA DAY ([id number]) 1990 F Date Time Provider Department 07/25/23 EMILY MCCAIN V NE50MN During your visit today, we recorded the following information about you: Vanna Sheffield 07/25/2023 10:41 AM Signed OUTSIDE LAB REPORT FACILITY NAME [facility] PHONE/FAX [phone] COLLECTION DATE AND TIME: 1821 Uploaded to [facility] ] Coni Mora RN 07/25/2023 10:52 AM Signed Pre- levels 11/08/2022: Lamotrigine- 3.1 Levetiracetam- 20.9 Pre- doses: LEV ER 1500/1500 LTG 100/100 ======= Medication levels 02/06/2023: Lamotrigine- 2.4 Levetiracetam- 16.1 New medication doses: LEV ER 1500/2000 LTG 150/150 ======= Medication levels 03/06/2023: Lamotrigine- 3.0 Levetiracetam- 16.5 New medication doses: LEV ER 1500/2000 LTG 200/200 ======= Medication levels 04/24/2023: Lamotrigine- 2.4 (2.0-20.0) Levetiracetam- 14.1 (10.0-40.0) New medication doses: LTG 250/250 LEV ER ======= Medication levels 06/12/2023: Lamotrigine- 2.5 (2.0-20.0) Levetiracetam- 16.0 (10.0-40.0) New medication doses: LEV ER 2250/2250 LTG 250/300 ======= Lab work drawn on 07/19/2023 at 1822. Routed for review and recommendation. LISHA Naranjo Kelly, APRN.GUILLERMINA 07/25/2023 2:17 PM Signed Levels have further dropped would increase to LTG 300/300 AND LEV 2500 mg BID John Myles APRN.Coni Mancilla RN 07/25/2023 2:29 PM Signed Called pt, left detailed voicemail. Routed for updated prescription to be sent to pharmacy. LISHA Naranjo Kelly, APRN.CNP 07/25/2023 2:54 PM Signed The following approved medication requests have been transmitted electronically. Requested Prescriptions Signed Prescriptions Disp Refills lamoTRIgine (LAMICTAL) 150 mg tablet 360 tablet 0 Sig: Take 2 tablets by mouth daily with breakfast AND 2 tablets every evening. Authorizing Provider: JOHN MYLES levETIRAcetam XR (KEPPRA XR) 500 mg 24 hr tablet 90 tablet 0 Sig: Take 1 tablet by mouth once daily. Take with the 750 mg tablet. 2250 mg in the am and 2750 mg in the pm. 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 Take with the 750 mg tablet. 2250 mg in the am and 2750 mg in the pm.Disp: 90 tabletRfl: 0 Prescriptions as of 07/25/2023 - folic acid 1 mg tablet TAKE TWO TABLETS BY MOUTH TWICE A DAY - lamoTRIgine (LAMICTAL) 150 mg tablet Take 2 tablets by mouth daily with breakfast AND 2 tablets every evening. - levETIRAcetam ER (KEPPRA XR) 750 mg 24 hr tablet Take 3 tablets by mouth twice daily. - levETIRAcetam XR (KEPPRA XR) 500 mg 24 hr tablet Take 1 tablet by mouth once daily. Take with the 750 mg tablet. 2250 mg in the am and 2750 mg in the pm. - sertraline (ZOLOFT) 50 mg tablet Take 1 tablet by mouth daily at bedtime. - vitamin b complex (SUPER QUINTS B-50) tab Take 1 tablet by mouth once daily. Problem List As Of Date 07/25/2023 Noted Resolved Generalized convulsive epilepsy (HCC) [G40.309] 04/25/2013 Class 3 severe obesity with body mass index (BM*04/25/2013 Metabolic syndrome [E88.810] 12/05/2018 History of DVT in adulthood [Z86.718] 12/05/2018 Prescriptions ordered this encounter Disp Refills Start End LAMOTRIGINE 150 MG TABLET 360 * 0 07/25/2023 10/23/2023 Route: ORAL Sig: Take 2 tablets by mouth daily with breakfast AND 2 tablets every evening. LEVETIRACETAM ER 500 MG TABLET,EXTEN* 90 t* 0 07/25/2023 10/23/2023 Route: ORAL Sig: Take 1 tablet by mouth once daily. Take with the 750 mg tablet. 2250 mg in the am and 2750 mg in the pm. Medications Discontinued During This Encounter Prescriptions - lamoTRIgine (LAMICTAL) 100 mg tablet (Discontinued) Take 1 tablet by mouth daily with breakfast. Take with the 150 mg tablet - lamoTRIgine (LAMICTAL) 150 mg tablet (Discontinued) Take 1 tablet by mouth daily with breakfast AND 2 tab (more content not included)... Normal [facility] 06-28-2023 [facility] [facility]NE[facility] -------- MIRELA DAY ([id number]) 1990 F Date Time Provider Department 06/28/23 EMILY MCCAIN V NE50MN During your visit today, we recorded the following information about you: Libertad Jo 06/28/2023 9:59 AM Signed OUTSIDE LAB REPORT FACILITY NAME [facility] PHONE/FAX [phone]/ [phone] COLLECTION DATE AND TIME: 06/12/2023 Uploaded to Coni Olivera RN 06/28/2023 11:16 AM Signed Pre- levels 11/08/2022: Lamotrigine- 3.1 Levetiracetam- 20.9 Pre- doses: LEV ER 1500/1500 LTG 100/100 ======= Medication levels 02/06/2023: Lamotrigine- 2.4 Levetiracetam- 16.1 New medication doses: LEV ER 1500/2000 LTG 150/150 ======= Medication levels 03/06/2023: Lamotrigine- 3.0 Levetiracetam- 16.5 New medication doses: LEV ER 1500/2000 LTG 200/200 ======= Medication levels 04/24/2023: Lamotrigine- 2.4 (2.0-20.0) Levetiracetam- 14.1 (10.0-40.0) New medication doses: LTG 250/250 LEV ER ======= Lab work drawn on 06/12/2023 at 1736: Routed for review and recommendation. LISHA Naranjo Kelly, APRN.GUILLERMINA 06/28/2023 12:59 PM Signed Would recommend to increase Keppra by 500 mg to 2250/2250 AND increase Lamictal by 50- mg to 250/300 John Myles APRN.Coni Mancilla RN 06/28/2023 2:38 PM Signed Called pt, left voicemail. MC message also sent to pt, in this encounter. 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 Take with the 150 mg tabletDisp: Rfl: Prescriptions as of 06/29/2023 - levETIRAcetam ER (KEPPRA XR) 750 mg 24 hr tablet Take 3 tablets by mouth twice daily. - lamoTRIgine (LAMICTAL) 150 mg tablet Take 1 tablet by mouth daily with breakfast AND 2 tablets every evening. - lamoTRIgine (LAMICTAL) 100 mg tablet Take 1 tablet by mouth daily with breakfast. Take with the 150 mg tablet - folic acid 1 mg tablet TAKE TWO TABLETS BY MOUTH TWICE A DAY - sertraline (ZOLOFT) 50 mg tablet Take 1 tablet by mouth daily at bedtime. - vitamin b complex (SUPER QUINTS B-50) tab Take 1 tablet by mouth once daily. Problem List As Of Date 06/28/2023 Noted Resolved Generalized convulsive epilepsy (HCC) [G40.309] 04/25/2013 Class 3 severe obesity with body mass index (BM*04/25/2013 Metabolic syndrome [E88.81] 12/05/2018 History of DVT in adulthood [Z86.718] 12/05/2018 Prescriptions ordered this encounter Disp Refills Start End LEVETIRACETAM ER 750 MG TABLET,EXTEN* 360 * 3 06/29/2023 06/28/2024 Class: Med Update Route: ORAL Sig: Take 3 tablets by mouth twice daily. Cosign required by EMILY MCCAIN V[[id number]] LAMOTRIGINE 150 MG TABLET 06/29/2023 Class: Med Update Route: ORAL Sig: Take 1 tablet by mouth daily with breakfast AND 2 tablets every evening. Cosign required by EMILY MCCAIN V[[id number]] LAMOTRIGINE 100 MG TABLET 06/29/2023 Class: Med Update Route: ORAL Sig: Take 1 tablet by mouth daily with breakfast. Take with the 150 mg tablet Cosign required by EMILY MCCAIN V[[id number]] Medications Discontinued During This Encounter Prescriptions - levETIRAcetam XR (KEPPRA XR) 500 mg 24 hr tablet (Discontinued) Take 1 tablet by mouth twice daily. - levETIRAcetam ER (KEPPRA XR) 750 mg 24 hr tablet (Discontinued) Take 2 tablets by mouth twice daily. - lamoTRIgine (LAMICTAL) 150 mg tablet (Discontinued) Take 1 tablet by mouth twice daily. - lamoTRIgine (LAMICTAL) 100 mg tablet (Discontinued) Take 1 tablet by mouth twice daily. Take with the 150 mg tablet Encounter Status:Closed by CONI MORA on 06/28/23 [facility] 06-11-[address] [facility] Telephone (NE50MN) -------- MIRELA DAY ([id number]) 1990 F Date Time Provider Department 06/11/23 EMILY MCCAIN V NE50MN During your visit today, we recorded the following information about you: Bhanu GRIFFIN Vanna 06/11/2023 8:09 AM Signed ORDERS Person requesting order: Mirela Day Phone number: [phone] (home) Order being requested: lab order-never received in April 2023 Facility: [facility] Fax: Email: [email or web address] Patient of Coni Veloz RN 06/11/2023 8:32 AM Signed Lab order form sent to pt e-mail as requested. Called pt, left voicemail that standing lab order form has been re- sent. Coni Mora RN Allergies As of Date: 06/11/2023 Noted Allergy Reaction ALEVE (NAPROXEN SODIUM) 02/19/2015 4 - Hives LATEX 05/29/2016 2 - Rash PERCOCET (OXYCODONE-ACETAMINOPHEN )05/14/2017 2 - Rash 9 - Itching Date Reviewed: 11/04/2018 Reviewed by: Aileen Bradshaw Ma - Fully Assessed Reason for Visit: Orders [681] Cmt: lAb order Prescriptions as of 06/11/2023 - lamoTRIgine (LAMICTAL) 100 mg tablet Take 1 tablet by mouth twice daily. Take with the 150 mg tablet - levETIRAcetam XR (KEPPRA XR) 500 mg 24 hr tablet Take 1 tablet by mouth twice daily. - lamoTRIgine (LAMICTAL) 150 mg tablet Take 1 tablet by mouth twice daily. - sertraline (ZOLOFT) 50 mg tablet Take 1 tablet by mouth daily at bedtime. - levETIRAcetam ER (KEPPRA XR) 750 mg 24 hr tablet Take 2 tablets by mouth twice daily. - folic acid 1 mg tablet TAKE TWO TABLETS BY MOUTH TWICE A DAY - vitamin b complex (SUPER QUINTS B-50) tab Take 1 tablet by mouth once daily. Problem List As Of Date 06/11/2023 Noted Resolved Generalized convulsive epilepsy (HCC) [G40.309] 04/25/2013 Class 3 severe obesity with body mass index (BM*04/25/2013 Metabolic syndrome [E88.81] 12/05/2018 History of DVT in adulthood [Z86.718] 12/05/2018 Encounter Status:Closed by CONI MORA on 06/11/23 [facility] 05-10-[address] [facility] Telephone (NE50MN) -------- MIRELA DAY ([id number]) 1990 F Date Time Provider Department 05/10/23 EMILY MCCAIN V NE50MN During your visit today, we recorded the following information about you: Kathleen Sifuentes 05/10/2023 9:05 AM Signed OUTSIDE LAB REPORT FACILITY NAME [facility] PHONE/FAX [phone] COLLECTION DATE AND TIME: 04/30/232007 Uploaded to Coni Olivera RN 05/10/2023 11:33 AM Signed Pre- levels 11/08/2022: Lamotrigine- 3.1 Levetiracetam- 20.9 Pre- doses: LEV ER 1500/1500 LTG 100/100 ======= Medication levels 02/06/2023: Lamotrigine- 2.4 Levetiracetam- 16.1 New medication doses: LEV ER 1500/2000 LTG 150/150 ======= Medication levels 03/06/2023: Lamotrigine- 3.0 Levetiracetam- 16.5 New medication doses: LEV ER 1500/2000 LTG 200/200 Called pt for an update, left voicemail. LISHA Naranjo Nina, RN 05/11/2023 9:40 AM Signed Pt called back, she feels great- no seizures noted. Routed for review and recommendation of lab work- see below. LISHA Naranjo Kelly, SUPERVISOR [employer].DATA TYPIST 05/11/2023 11:27 AM Signed Both Levels have dropped would recommend to increase LTG to 200/250 for 1 week then 250/250 and increase LEV to 2000 mg BID Coni Mora RN 05/11/2023 11:36 AM Signed Called pt, relayed recommendation below. Pt verbalized understanding. Coni Mora RN Allergies As of Date: 05/10/2023 Noted Allergy Reaction ALEVE (NAPROXEN SODIUM) 02/19/2015 4 - Hives LATEX 05/29/2016 2 - Rash PERCOCET (OXYCODONE-ACETAMINOPHEN )05/14/2017 2 - Rash 9 - Itching Date Reviewed: 11/04/2018 Reviewed by: Aileen Bradshaw Ma - Fully Assessed Reason for Visit: Outside Labs Results [437] Cmt: [facility]Keppra Order(s):lamoTRIgine (LAMICTAL) 100 mg tabletTake 1 tablet by mouth twice daily. Take with the 150 mg tabletDisp: 180 tabletRfl: 1 levETIRAcetam XR (KEPPRA XR) 500 mg 24 hr tabletTake 1 tablet by mouth twice daily.Disp: 180 tabletRfl: 1 Prescriptions as of 05/11/2023 - lamoTRIgine (LAMICTAL) 100 mg tablet Take 1 tablet by mouth twice daily. Take with the 150 mg tablet - levETIRAcetam XR (KEPPRA XR) 500 mg 24 hr tablet Take 1 tablet by mouth twice daily. - lamoTRIgine (LAMICTAL) 150 mg tablet Take 1 tablet by mouth twice daily. - sertraline (ZOLOFT) 50 mg tablet Take 1 tablet by mouth daily at bedtime. - levETIRAcetam ER (KEPPRA XR) 750 mg 24 hr tablet Take 2 tablets by mouth twice daily. - folic acid 1 mg tablet TAKE TWO TABLETS BY MOUTH TWICE A DAY - vitamin b complex (SUPER QUINTS B-50) tab Take 1 tablet by mouth once daily. Problem List As Of Date 05/10/2023 Noted Resolved Generalized convulsive epilepsy (HCC) [G40.309] 04/25/2013 Class 3 severe obesity with body mass index (BM*04/25/2013 Metabolic syndrome [E88.81] 12/05/2018 History of DVT in adulthood [Z86.718] 12/05/2018 Prescriptions ordered this encounter Disp Refills Start End LAMOTRIGINE 100 MG TABLET 180 * 1 05/11/2023 Route: ORAL Sig: Take 1 tablet by mouth twice daily. Take with the 150 mg tablet LEVETIRACETAM ER 500 MG TABLET,EXTEN* 180 * 1 05/11/2023 11/07/2023 Route: ORAL Sig: Take 1 tablet by mouth twice daily. Medications Discontinued During This Encounter Prescriptions - levETIRAcetam XR (KEPPRA XR) 500 mg 24 hr tablet (Discontinued) Take 1 tablet by mouth daily at bedtime. - lamoTRIgine (LAMICTAL) 25 mg tablet (Discontinued) Take 2 tablets by mouth twice daily. Take with the 150 mg tablet Encounter Status:Closed by CONI MORA on 05/11/23 [facility] 04-19-2023 [facility] Telephone (NE50MN) -------- PORFIRIOMIRELA POOL ([id number]) 1990 F Date Time Provider Department 04/19/23 EMILY MCCAIN V NE50MN During your visit today, we recorded the following information about you: Tanisha Mejia Adm Asst 04/19/2023 9:04 AM Signed ORDERS Person requesting order: Mirela Campos Barb Phone number: [phone] (home) Order being requested: Standing orders for medication levels. Patient missed last scheduled lab and orders were cancelled. Needs new orders faxed. Please call patient when faxed Facility: [facility] Email: Patient of Dr. Angie Mora RN 04/19/2023 9:19 AM Signed Lab order form faxed to [facility] (fax#: [phone]) via Right[employer]ax. Confirmation received. Called pt, left voicemail that lab order form was re-faxed. Coni Mora RN Allergies As of Date: 04/19/2023 Noted Allergy Reaction ALEVE (NAPROXEN SODIUM) 02/19/2015 4 - Hives LATEX 05/29/2016 2 - Rash PERCOCET (OXYCODONE-ACETAMINOPHEN )05/14/2017 2 - Rash 9 - Itching Date Reviewed: 11/04/2018 Reviewed by: Aileen Bradshaw Ma - Fully Assessed Reason for Visit: Orders [471] Cmt: Labs Prescriptions as of 04/19/2023 - lamoTRIgine (LAMICTAL) 25 mg tablet Take 2 tablets by mouth twice daily. Take with the 150 mg tablet - lamoTRIgine (LAMICTAL) 150 mg tablet Take 1 tablet by mouth twice daily. - levETIRAcetam XR (KEPPRA XR) 500 mg 24 hr tablet Take 1 tablet by mouth daily at bedtime. - sertraline (ZOLOFT) 50 mg tablet Take 1 tablet by mouth daily at bedtime. - levETIRAcetam ER (KEPPRA XR) 750 mg 24 hr tablet Take 2 tablets by mouth twice daily. - folic acid 1 mg tablet TAKE TWO TABLETS BY MOUTH TWICE A DAY - vitamin b complex (SUPER QUINTS B-50) tab Take 1 tablet by mouth once daily. Problem List As Of Date 04/19/2023 Noted Resolved Generalized convulsive epilepsy (HCC) [G40.309] 04/25/2013 Class 3 severe obesity with body mass index (BM*04/25/2013 Metabolic syndrome [E88.81] 12/05/2018 History of DVT in adulthood [Z86.718] 12/05/2018 Encounter Status:Closed by CONI MORA on 04/19/23 [facility] PROGRESSon 09-06-2020 PROGRESS HNO ID: [id number] Author: Анна Botello) Malick Service: ? Author Type: Physician Rehabilitation Nurse Type: Progress Notes Filed: 09/06/2020 1:23 PM Note Text: [facility] CLINIC NOTE -FOLLOW UP Correct patient identified, consent obtained to proceed with virtual visit with video and audio via [employer] platform CHIEF COMPLAINT: Patient presents with: Epilepsy HISTORY SINCE LAST VISIT: The patient has returned for follow-up regarding seizures and . Mirela Day is a 29 year old female who is diagnosed with generalized epilepsy, and presents today for epilepsy monitoring during . She is an established patient of Dr. Mccain, last seen by georgette on 01/22/2020, and most recently seen by Beatriz Shirley CNP on 06/07/2020. She is currently 19w3d gestation, continues to follow closely with local Obstetrics. Reports OB provider has experience with former patients with epilepsy, and specifically patients who have been on Keppra. She went for anatomy scan today, baby is growing ahead of curve, they had some difficulty assessing heart due to fetus positioning so she will go back for an echo, no issues noted. She remains on FA 2 mg BID (taking prior to conception), in addition to vitamin (with FA). Her Keppra dosage has been mildly increased during based on subtherapeutic levels, tracking monthly. She remains seizure free, no seizures in 7 years. Pre- dose: LEV ER 3000 mg QHS Current dosage: LEV ER 8843-4960 mg daily Most recent LEV within therapeutic range after adjusting from taking 3750 mg QHS to splitting dosage. Reports mild fatigue when she first increased the dosage, now she is tolerating the current dosage without any issues. 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 She had her first GTC at age 15 and then another at age 17. She was switched to LTG at the age of 18 because of weight gain in the setting of VPA use and had a breakthrough GTC 2 wks off VPA. She had a few more breakthrough GTCs despite increasing dose of LTG so was switched to VPA ER 100 mg/d in Aug, 2009 (at the age of 19) and remained seizure free on this till nov, 2012. Because of 2 breakthrough GTCs in nov and March 2013, her VPA was increased to 2000 mg QD. She was first seen by Dr Mahoney in April, at which time it was decided to give er a trial of LEV. From 2012 till 2013, she was on both VPA and LEV but because of side effects it was eventually decided to do LEV monotherapy. This transition happened sometime within the last 6 months of 2013 but because of increasing side effects, she was switched to XR LEV 10/2014. ? Seizure types: Type 1: Dialeptic Onset: symptoms started at 10 or 11 with zoning out , and was diagnosed with absance seizures at age 13 ? Type 2: GTC Convulsive szs described as stiffening/straightening of the body blowing air, lasts about 2-3 min or less ? In other health, reports that she has not had any major health changes, aside from , or visits to the ED. ? Occupation: Changed roles at work, not overly stressed. States the coworkers are aware of epilepsy diagnosis. Driving: Yes Mood: Good , denies excessive depression or anxiety. Excited for ? MEDICATIONS: Current Outpatient Medications Medication Sig - enoxaparin (LOVENOX) 40 mg/0.4 mL Inject 0.4 mL subcutaneously every 12 hours. - levETIRAcetam ER (KEPPRA XR) 750 mg 24 hr tablet Take 5 tablets by mouth daily at bedtime. [employer] only. - folic acid 1 mg tablet Take 2 tablets by mouth twice daily. - Ascorbic Acid (VITAMIN C) 1,000 mg tablet Take 1,000 mg by mouth once daily. - biotin/folic ac/vit Bcomp,C/Zn (LLJQCK-[id number]-GNW B COMP AND C-ZINC ORAL) Take by mouth. - vitamin b complex (SUPER QUINTS B-50) tab Take 1 tablet by mouth once daily. - Ferrous Sulfate 325 mg (65 mg iron) tablet Take 325 mg by mouth daily with breakfast. No current facility-administered medications for this visit. PAST MEDICAL HISTORY: PAST MEDICAL HISTORY Diagnosis Date - Depression - Diabetes (HCC) - Generalized nonconvulsive epilepsy (HCC) - Impaired fasting glucose - Obesity 2/2 to depakote PAST SURGICAL HISTORY: PAST SURGICAL HISTORY Procedure Laterality Date - COLONOSCOPY 07/18/14 - EGD 07/18/14 - EUSTACHIAN TUBOPLASTY - LAP UMBILICAL HERNIA REPAIR FAMILY MEDICAL HISTORY: FAMILY HISTORY Problem Relation Age of Onset - other (bone cancer) Father 30 - other (osteoarthritis) Father - other (congenital extra vertebrae) Father - other (headaches) Brother gets care here in pain center SOCIAL HISTORY: Social History Tobacco Use - Smoking status: Never Smoker - Smokeless tobacco: Never Used Substance Use Topics - Alcohol use: No - Drug use: No REVIEW OF SYSTEMS: See pertinent positives and negatives in HPI GENERAL EXAMINATION: Virtual visit, no formal exam performed Alert, answering questions appropriately, fluent speech RELEVANT LABS AND TEST: Component Latest Ref Rng AND Units 06/14/2018 06/01/2020 @ 1722 ? 06/28/20 @ 1725 (10w3d) 08/06/20 @ 1717 (16w) 08/24/20 @ 1632 (17w4d) Levetiracetam 10.0 - 40.0 ug/mL 26.2?(on 3000 mg HS 10.0 (on 3000 HS) 9.03 (on 3250 HS 6.0 ( on 3750 HS) 16.2 (on LEV XR 2333-8070 mg daily IMPRESSION: Mirela Day is a 29 year old female with history of generalized epilepsy and is currently 19 weeks and presents for follow-up visit in second trimester. She remains seizure free on LEV monotherapy, no seizures in 7 years. Her LEV dosage has been increased during due to subtherapeutic levels, most recent levels WNL after adjusting from LEV ER 3750 mg QHS to 2226-7627 mg daily (pre- dose 3000 mg QHS). She remains on FA 2 mg BID in addition to , had anatomy scan today and baby is growing well, no issues. PLAN: Continue LEV levels monthly, active standing order Continue LEV ER 2930-6956 mg daily Will reassess dosage after next LEV level Continue FA 2 mg BID + vitamin Continue to follow closely with local OB Return visit with Epilepsy in 3 months (once per trimester) Provider time on visit was 10 minutes with >50% of time dedicated to coordination of care and answering patient questions Анна Teresa PA-C September 06, 2020 [facility] C Urineon 05-15-2018 C Urine Final Report: Light growth of Normal skin marielena isolated Normal [facility] Comment on above: Performed By: #### 2 [id number] ####LUIS [facility] [id number] [place] [id number] XR Pelvis 1 or 2 Viewson XR Pelvis 1 or 2 Views Exam Date/Time:11/12/2017 10:24 ESTReason for Exam:segmental dysfunctionReportXR PELVIS, ONE VIEW, 11/12/2017 AT 10:12 AMCLINICAL STATEMENT: Chronic back pain.COMPARISON: CT abdomen and pelvis 03/28/2014.FINDINGS: A single frontal standing view of the pelvis was performed. Thepelvic ring appears intact. The SI joints and hip joints are symmetric. Noacute fracture or malalignment. Note that portions of the sacrum are partlyobscured by overlying enteric contents.The right iliac crest measures approximately 14 mm higher than the left.The right femoral head measures approximately 3 mm higher than the left.The soft tissues are unremarkable.IMPRESSION: No acute abnormality noted in the pelvis.Slight pelvic tilt as above. FINAL REPORT Dictated: 11/12/2017 1:28 pm Dewey Loera MD LSigned (Electronic Signature): 11/12/2017 1:28 pmSigned by: Dewey Loera MD Technologist: [facility] XR Spine Lumbar w/ Obliqueso n 11-12-2017 XR Spine Lumbar w/ Obliques Exam Date/Time:11/12/2017 10:24 ESTReason for Exam:segmental dysfunction of lumbarReportLUMBAR SPINE-6 VIEWS:HISTORY: Back pain.FINDINGS: There is a levoscoliosis of the lumbar spine with the angle ofcurvature between L1 and L5 11 degrees. No spondylolisthesis is present. Thedisc heights are preserved. No significant degenerative changes are seen at thefacets.IMPRESSION:Lev oscoliosis of the lumbar spine. No evidence of facet arthropathy orsignificant degenerative disc disease. FINAL REPORT Dictated: 11/12/2017 4:39 pm Jovanny Swann MD KSigned (Electronic Signature): 11/12/2017 4:39 pmSigned by: Jovanny Swann MD Technologist: GLP Normal [facility] Auto Diffon 05-23-2017 Basophils Auto #/vol (Bld) 0.0 E3/mcL Normal 0.0-0.2 [facility] Comment on above: Order Comment: Order Added by Discern Expert. Performed By: #### 2 [id number] ####LUIS [address] [place] [address] Basophils/100 WBC Auto (Bld) 0.4 % Normal 0.0-2.0 [facility] Comment on above: Order Comment: Order Added by Discern Expert. Performed By: #### 2 [id number] ####LUIS [address] [place] [address] Eos Absolute 0.2 E3/mcL Normal 0.0-0.7 [facility] Comment on above: Order Comment: Order Added by Discern Expert. Performed By: #### 2 [id number] ####LUIS [address] [place] [address] Eosinophils/100 WBC Auto (Bld) 1.6 % Normal 0.0-11.0 [facility] Comment on above: Order Comment: Order Added by Discern Expert. Performed By: #### 2 [id number] ####LUIS [address] [place] [address] Lymphocytes Auto #/vol (Bld) 2.9 E3/mcL Normal 1.2-3.4 [facility] Comment on above: Order Comment: Order Added by Discern Expert. Performed By: #### 2 [id number] ####LUIS [address] [place] [address] Lymphocytes/100 WBC Auto (Bld) 30.3 % Normal 20.0-55.0 [facility] Comment on above: Order Comment: Order Added by Discern Expert. Performed By: #### 2 [id number] ####LUIS [address] [place] [address] Swain Absolute 0.4 E3/mcL Normal 0.0-0.7 [facility] Comment on above: Order Comment: Order Added by Discern Expert. Performed By: #### 2 [id number] ####LUIS [address] [place] [address] Monocytes/100 WBC Auto (Bld) 3.9 % Normal 0.0-10.0 [facility] Comment on above: Order Comment: Order Added by Discern Expert. Performed By: #### 2 [id number] ####LUIS [address] [place] [address] Neutro Absolute 6.2 E3/mcL Normal 1.4-6.5 [facility] Comment on above: Order Comment: Order Added by Discern Expert. Performed By: #### 2 [id number] ####LUIS [address] [place] [address] Neutro Auto 63.8 % Normal 37.0-75.0 [facility] Comment on above: Order Comment: Order Added by Discern Expert. Performed By: #### 2 [id number] ####LUIS [address] [place] [address] BMPon 05-23-2017 Creatinine mass conc 0.7 mg/dL Normal 0.6-1.3 [facility] Comment on above: Performed By: #### 2 [id number] ####LUIS [address] [place] [address] Urea nitrogen mass conc 20 mg/dL High 7-18 [facility] Comment on above: Performed By: #### 2 [id number] ####LUIS [address] [place] [address] Urea nitrogen/Creatinin e mass ratio 28.6 ratio Normal 5.4-30.0 [facility] Comment on above: Performed By: #### 2 [id number] ####LUISChava [address] [place] [address] Calcium mass conc 9.4 mg/dL Normal 8.4-10.2 [facility] Comment on above: Performed By: #### 2 [id number] ####LUIS [address] [place] [address] Chloride molar conc 104 mmol/L Normal 98-107 [facility] Comment on above: Performed By: #### 2 190112 ####LUIS [address] [place] [address] CO2 molar conc 25.4 mmol/L Normal 24.0-30.0 [facility] Comment on above: Performed By: #### 2 [id number] ####LUIS [address] [place] [address] Glucose mass conc 86 mg/dL Normal 70-99 [facility] Comment on above: Performed By: #### 2 [id number] ####LUIS [address] [place] [address] Potassium molar conc 3.8 mmol/L Normal 3.5-5.1 [facility] Comment on above: Performed By: #### 2 [id number] ####LUISChava [address] [place] [address] Sodium molar conc 140 mmol/L Normal 136-145 [facility] Comment on above: Performed By: #### 2 [id number] ####LUIS [address] [place] [address] BhCG Qualon 05-23-2017 Beta hCG Ql Negative Normal Negative [facility] Comment on above: Performed By: #### 2 [id number] ####LUIS Chemistry Manual [address] [place] [address] CBC w/ Auto Diffon 7 Erythrocyte distribution width Auto Ratio (RBC) 14.3 % Normal 11.5-14.5 [facility] Comment on above: Performed By: #### 2 [id number] ####LUIS [address] [place] [address] Hematocrit Auto Volume Fraction (Bld) 40.4 % Normal 36.0-48.0 [facility] Comment on above: Performed By: #### 2 [id number] ####LUIS [id number] [place] [address] Hemoglobin mass conc (Bld) 13.7 g/dL Normal 12.0-16.0 [facility] Comment on above: Performed By: #### 2 [id number] ####LUIS [id number] [place] [id number] MCH Auto Entitic mass (RBC) 29.2 pg Normal 27.0-31.0 [facility] Comment on above: Performed By: #### 2 [id number] ####LUIS [address] [place] [id number] MCHC Auto mass conc (RBC) 33.8 g/dL Normal 33.0-37.0 [facility] Comment on above: Performed By: #### 2 [id number] ####LUIS [address] [place] [id number] MCV Auto Entitic volume (RBC) 86.3 fL Normal 78.0-100.0 [facility] Comment on above: Performed By: #### 2 [id number] ####LUIS [address] [place] [address] Platelet mean volume Auto Entitic volume (Bld) 9.2 fL Normal 7.4-11.0 [facility] Comment on above: Performed By: #### 2 [id number] ####LUIS [address] [place] [id number] Platelets Auto #/vol (Bld) 247 E3/mcL Normal 130-400 [facility] Comment on above: Performed By: #### 2 [id number] ####LUIS [id number] [place] [id number] RBC Auto #/vol (Bld) 4.68 E6/mcL Normal 3.90-5.40 [facility] Comment on above: Performed By: #### 2 [id number] ####LUIS [address] [place] [address] WBC Auto #/vol (Bld) 9.7 E3/mcL Normal 3.6-11.0 [facility] Comment on above: Performed By: #### 2 [id number] ####LUIS [id number] [place] [address] CTA Cheston 05-23-2017 CTA Chest Exam Date/Time: 017 18:28 EDTReason for Exam:Shortness of breath (SOB)ReportCT CHEST WITH CONTRASTCLINICAL HISTORY: Shortness of breath (SOB).COMPARISON: No relevant prior study available at time of interpretation.TECHNIQUE : Axial CT images of the chest were obtained following administrationof 70 mL of Omnipaque 350 intravenous contrast according to the pulmonaryembolism protocol. Multiplanar 2-D and MIP reconstructed images were obtainedand reviewed.FINDINGS:Lung: Mild inflammation seen in the superior segment of the right lower lobe.No pneumothorax, or pleural effusion. Mild peribronchial wall thickening isseen.Heart: The heart size is normal. No pericardial abnormality is seen.Visualized thyroid gland: No suspicious mass.Lymph nodes: No pathologically enlarged lymphadenopathy.Thoracic aorta: Left-sided thoracic aorta is visualized which is normal incaliber without evidence of dissection.Pulmonary artery: The main pulmonary artery trunk is normal in caliber. Nointraluminal filling defect is seen to the level of segmental branches.Esophagus: Unremarkable.Chest wall soft tissue: Unremarkable.Visualized abdomen: Calcified splenic granuloma noted, otherwise unremarkable.Bone: No acute osseous abnormality.IMPRESSION:1 . No acute pulmonary embolus is visualized.2. Mild peribronchial wall thickening with inflammation seen in the superiorsegment of the right lower lobe, question mild/early bronchopneumonia versusreactive airway disease such as asthma. Recommend clinical correlation. FINAL REPORT Dictated: 05/23/2017 8:53 pm Brando Tarango MD HSigned (Electronic Signature): 05/23/2017 8:53 pmSigned by: Brando Tarango MD Technologist: ARETHA Normal [facility] Troponin-Ion 05-23-2017 Troponin I.cardiac mass conc ng/mL Normal .00-.03 [facility] Comment on above: Performed By: #### 2 [id number] ####LUIS [id number] [place] [address] eGFRon 05-23-2017 eGFR AA >60 Normal [facility] Comment on above: Order Comment: Order added by Discern Expert. Performed By: #### 1 [id number] ####LUIS [id number] [place] [address] GFR/1.73 sq M predicted among non-blacks MDRD vol rate/area (S/P/Bld) mL/min/{1.73_m2} Normal [facility] Comment on above: Order Comment: Order added by Discern Expert. Performed By: #### 1 [id number] ####LUIS [id number] [place] [address] Encounters Encounter Date Encounter Type Care Provider Facility Start: 04-13-2024 Refill John murphy SUPERVISOR [employer].DATA TYPIST Work Phone: Neurology Comment on above: Refill Request Start: 12-18-2023 Refill John murphy SUPERVISOR [employer].DATA TYPIST Work Phone: Neurology Comment on above: Refill Request Start: 10-22-2023 End: 10-22-2023 ambulatory NERIS TIFFANYMARCELLOThuan DANIELLE Facility:[facility] Start: 08-31-2023 Refill John murphy SUPERVISOR [employer].DATA TYPIST Work Phone: Neurology Comment on above: Refill Request Start: 08-14-2023 Refill Emily mcdonald MD Work Phone: Neurology Comment on above: Refill Request Medication Problem ( Keppra - Pharmacy Needs Clarificatin) Start: 08-04-2023 Refill John murphy SUPERVISOR [employer].DATA TYPIST Work Phone: Neurology Comment on above: Refill Request Start: 07-25-2023 Telephone encounter Emily Reilly MD Work Phone: Neurology Comment on above: Outside Lab Results ([facility]-keppra, lamotrigine) Start: 06-17-2023 Refill John murphy SUPERVISOR [employer].DATA TYPIST Work Phone: Neurology Comment on above: Refill Request Start: 06-11-2023 Telephone encounter Emily Reilly MD Work Phone: Neurology Comment on above: Orders (lAb order) Refill Request Start: 05-10-2023 Telephone encounter Emily Reilly MD Work Phone: Neurology Comment on above: Outside Labs Results ([facility]/LTG/Keppra) Start: 05-02-2023 End: 05-02-2023 ambulatory SHAHANAHOMER COSTELLO [facility] Start: 07-06-2023 Telephone encounter Emily Reilly MD Work Phone: Neurology Comment on above: Orders (Labs) Start: 02-06-2023 Telephone encounter Emily Reilly MD Work Phone: Neurology Comment on above: Outside Lab Results ([facility]- Lamotrigine/Keppra ) Start: 01-19-2023 Telephone encounter Emily Reilly MD Work Phone: Neurology Comment on above: Medication Problem ( AEDs - ) Start: 12-20-2022 Refill John murphy SUPERVISOR [employer].DATA TYPIST Work Phone: Neurology Comment on above: Refill Request Start: 10-25-2022 End: 10-25-2022 ambulatory Kendy Vikram UNGER Work Phone: Neurology Comment on above: Anxiety and depressi on (Primary Dx); 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) Start: 10-25-2022 End: 10-25-2022 Telemedicine consultation with patient Kendy Vikram UNGER Work Phone: [facility] Start: 06-16-2022 Refill John murphy SUPERVISOR [employer].DATA TYPIST Work Phone: Neurology Comment on above: Refill Request Start: 07-29-2019 Patient encounter procedure ANNE [facility] Start: 05-13-2018 End: 05-14-2018 Patient encounter Neris Santos Facility:[facility] Start: 05-13-2018 End: 05-14-2018 Patient encounter Neris Santos Facility:[facility] Start: 01-31-2018 End: 02-01-2018 Patient encounter Neris Santos Facility:[facility] Start: 01-17-2018 End: 01-18-2018 [facility] Start: 11-12-2017 End: 11-13-2017 Patient encounter Fernando Talbot Facility:[facility] Start: 09-25-2017 End: 09-26-2017 Patient encounter Neris Santos Facility:[facility] Start: 09-25-2017 End: 09-25-2017 Patient encounter Neris Santos Facility:[facility] Start: 09-21-2017 End: 09-22-2017 Patient encounter Lida Pena Facility:[facility] Start: 09-20-2017 End: 09-21-2017 Patient encounter Lida Pena Facility:[facility] Start: 08-27-2017 End: 08-28-2017 Patient encounter Neris Santos Facility:[facility] Start: 08-20-2017 End: 08-21-2017 Patient encounter Neris Santos Facility:[facility] Start: 05-28-2017 End: 05-29-2017 Patient encounter Neris Santos Facility:[facility] Start: 05-23-2017 End: 05-23-2017 Emergency department patient visit Neris Santos Facility:[facility] Start: 05-23-2017 End: 05-24-2017 Patient encounter Manjit Cobos [place] Facility:[facility] Procedures Date Procedure Procedure Detail Performing Clinician Start: 05-14-2017 Adult depression screening assessment John Myles APRN.DATA TYPIST Work Phone: Plan of Treatment Date Care Activity Detail Author Start: 07-06-2033 Urine microalbumin profile DTaP,Tdap,Td Vaccine (4 - Td or Tdap) [facility] Start: 11-08-2030 Urine microalbumin profile DTaP,Tdap,Td Vaccine (3 - Td or Tdap) [facility] Start: 06-15-2024 Influenza vaccination Influenza Vacc ine (#1) [facility] Start: 10-15-2023 Depression Assessment Depression Ass essment [facility] Start: 06-15-2023 Covid-19 Vaccine ( season) Covid-19 Vaccine ( season) [facility] Start: 06-15-2023 Influenza vaccination C [facility] Start: 10-15-2022 DEPRESSION ASSESSMENT DEPRESSION ASS ESSMENT [facility] Start: 06-15-2022 Influenza vaccination INFLUENZA (#1) [facility] Start: 12-29-2021 COVID-19 VACCINE (3 - Booster for Pfizer series) COVID-19 VACCINE (3 - Booster for Pfizer series) [facility] Start: 09-25-2021 COVID-19 VACCINE (3 - Booster for Pfizer series) COVID-19 VACCINE (3 - Booster for Pfizer series) [facility] Start: 09-25-2021 COVID-19 VACCINE (3 - Pfizer series) COVID-19 VACCINE (3 - Pfizer series) [facility] Start: 2019 HPV TESTING HPV TESTING [facility] Start: 2019 Screening for malign ant neoplasm of cervix HPV Testing [facility] Start: 05-14-2018 Adult depression screening assessment DEPRESSION SCREENING [facility] Start: 2010 PAP TESTING PAP TESTING [facility] Start: 2010 Screening for malign ant neoplasm of cervix [facility] Start: 2008 Hepatitis B Vaccine (1 of 3 - 19+ 3-dose series) Hepatitis B Vaccine (1 of 3 - 19+ 3-dose series) [facility] Start: 2008 Urine microalbumin profile [facility] Start: 2007 HEPATITIS C SCREENING HEPATITIS C [facility] Start: 2007 Hepatitis C screening Hepatitis C [facility] Start: 2007 HIV SCREENING HIV SCREENING [facility] Start: 2007 HIV screening HIV Screening [facility] Start: 1989 HEPATITIS B (1 of 3 - 3-dose series) HEPATITIS B (1 of 3 - 3-dose series) [facility] Start: 1989 Hepatitis B Vaccine (1 of 3 - 3-dose series) Hepatitis B Vaccine (1 of 3 - 3-dose series) [facility] End: 01-19-2024 lamoTRIgine [Mass/volume] in Serum or Plasma LAMOTRIGINE Lab Routine 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) Once per month for 10 Occurrences starting 01/19/2023 until 01/19/2024 [facility] Work Phone: Comment on above: Once per month for 1 0 Occurrences starting 01/19/2023 until 01/19/2024 End: 01-19-2024 levETIRAcetam [Mass/volume] in Serum or Plasma LEVETIRACETAM Lab Routine 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) Once per month for 10 Occurrences starting 01/19/2023 until 01/19/2024 [facility] Work Phone: Comment on above: Once per month for 1 0 Occurrences starting 01/19/2023 until 01/19/2024 [facility] Immunizations Immunization Date Immunization Notes Care Provider [place] 09-25-2023 influenza virus vaccine, unspecified formulation John Myles APRN.GUILLERMINA Work Phone: [facility] Payers Date Payer Category Payer Private Health Insurance CIGKENNY RAMIREZ OAP [id number] 2020-Present [phone] [address] [place] [address] Open Access [id number] 2020 Private Health Insurance [id number] 2017 Unknown 1989 Unknown 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 alcohol (finding) [facility] Start: 1990 Sex Assigned At Not on file [facility] Start: 11-04-2018 End: 10-22-2023 History of Social function [facility] Start: 11-04-2018 End: 10-22-2023 Tobacco use panel [facility] Adult Depression Scr eening Assessment 3 [facility] Clinical Notes 06-16-2022 to 04-15-2024 Telephone Encounter - John Myles APRN.CNP - 04/15/2024 6:44 AM EDTTelephone Encounter - John Myles APRN.CNP - 04/15/2024 6:44 AM Destiney Sue PA-C - 10/25/2022 11:42 AM EST Note Date & Type Note Facility 04-15-2024 Telephone encounter Note The following approved medication requests have been transmitted electronically. Requested Prescriptions Signed Prescriptions Disp Refills sertraline (ZOLOFT) 50 mg tablet 90 tablet 1 Sig: take one tablet by mouth every day at bedtime Authorizing Provider: JOHN MYLES lamoTRIgine (LAMICTAL) 150 mg tablet 180 tablet 1 Sig: take one tablet by mouth twice a day Authorizing Provider: JOHN MYLES APRN.DATA TYPIST [facility] 04-15-2024 Miscellaneous Notes The following approved medication requests have been transmitted electronically. Requested Prescriptions Signed Prescriptions Disp Refills sertraline (ZOLOFT) 50 mg tablet 90 tablet 1 Sig: take one tablet by mouth every day at bedtime Authorizing Provider: JOHN MYLES lamoTRIgine (LAMICTAL) 150 mg tablet 180 tablet 1 Sig: take one tablet by mouth twice a day Authorizing Provider: JOHN MYLES APRN.CNP Prescription Refill: Requested by: pharmacy Please E-Scribe Caller Contact Number: Pharmacy Name: [facility] Number: [phone] Generic/ brand: 30 or 90 day supply requested: 90 Last appointment: 10/22/23 Next Appointment: none Patient of Dr. Mccain documented in this encounter [facility] 04-14-2024 Telephone encounter Note Prescription Refill: Requested by: pharmacy Please E-Scribe Caller Contact Number: Pharmacy Name: [facility] Number: [phone] Generic/ brand: 30 or 90 day supply requested: 90 Last appointment: 10/22/23 Next Appointment: none Patient of Dr. Mccain [facility] 12-18-2023 Miscellaneous Notes Refill request declined: duplicate order. Kell Stevenson PA-C Duplicate; please decline documented in this encounter [facility] 10-22-2023 Note HNO ID: [id number] Author: АННА TERESA PA-C Service: ? Author Type: Physician Rehabilitation Nurse Type: Progress Notes Filed: 10/22/2023 10:03 Note Text: [facility] Neurological [facility] FOLLOW UP VIRTUAL VISIT I have communicated my name and active licensure. The patient's identity and physical location were verified at the time of this visit. Either the patient or their legal technical services representative has been informed of the risks and benefits of -- and alternatives to -- treatment through a remote evaluation and consents to proceed with the evaluation remotely. CHIEF COMPLAINT: Patient presents with: Epilepsy Follow Up HISTORY SINCE LAST VISIT: Mirela Day is a 33 year old female who is diagnosed with generalized epilepsy. She is an established patient of Dr. Mccain, last seen by him on 01/22/2020, and most recently seen by Kendy Sue PA-C on 10/25/2022. Delivered a healthy baby boy (Tae) on 09/17/2023, everything went well with delivery. She is currently on maternity leave and at home with her two sons. Confirms she had reduced Levetiracetam to 1500 mg BID (same as pre- dose) and Lamotrigine to 100/150 mg daily (pre- dose was 100 mg BID). Denies any side effects to medication. Continues to take folic acid 1 mg BID, reduced from 4 mg/day at start of most recent as directed by our team. No seizures since the last visit. Her last seizure was a GTC +UI lasting 2 minute on 04/04/2021 and nocturnal GTC +TB in March 2013. Other health updates: Continues to take Zoloft 50 mg daily. 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 At [facility] with our team in Oct 2022 patient noted return for anxiety/depression in Jul 2022 and medication as resumed. Patient reports tolerating well and helps with mood. She is currently on Lovenox, takes during as precaution due to history of blood clot in 2016 (in setting of surgery vs OCP). 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 Currently on maternity leave. 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 She had her first GTC at age 15 and then another at age 17. She was switched to LTG at the age of 18 because of weight gain in the setting of VPA use and had a breakthrough GTC 2 wks off VPA. She had a few more breakthrough GTCs despite increasing dose of LTG so was switched to VPA ER 100 mg/d in Aug, 2009 (at the age of 19) and remained seizure free on this till nov, 2012. Because of 2 breakthrough GTCs in nov and March 2013, her VPA was increased to 2000 mg QD. She was first seen by Dr Mahoney in April, at which time it was decided to give er a trial of LEV. From 2012 till 2013, she was on both VPA and LEV but because of side effects it was eventually decided to do LEV monotherapy. This transition happened sometime within the last 6 months of 2013 but because of increasing side effects, she was switched to XR LEV 10/2014. Seizure types: Type 1: Dialeptic Onset: symptoms started at 10 or 11 with zoning out , and was diagnosed with absance seizures at age 13 Type 2: GTC Convulsive szs described as stiffening/straightening of the body blowing air, lasts about 2-3 min or less MEDICATIONS: Current Outpatient Medications Medication Sig sertraline (ZOLOFT) 50 mg tablet Take 1 tablet by mouth daily at bedtime. sertraline (ZOLOFT) 50 mg tablet Take 1 tablet by mouth daily at bedtime. levETIRAcetam XR (KEPPRA XR) 500 mg 24 hr tablet Take 2 tablets by mouth two times a day. Take with the 750 mg tablet. 2500 mg BID levETIRAcetam ER (KEPPRA XR) 750 mg 24 hr tablet Take 2 tablets by mouth two times a day. Take with the 500 mg tabelts. Total daily dose 2500 mg BID lamoTRIgine (LAMICTAL) 150 mg tablet take one tablet by mouth twice a day folic acid 1 mg tablet TAKE TWO TABLETS BY MOUTH TWICE A DAY vitamin b complex (SUPER QUINTS B-50) tab Take 1 tablet by mouth once daily. No current facility-administered medications for this visit. PAST MEDICAL HISTORY: PAST MEDICAL HISTORY Diagnosis Date Depression Diabetes (HCC) Generalized nonconvulsive epilepsy (HCC) Impaired fasting glucose Obesity 2/2 to depakote PAST SURGICAL HISTORY: PAST SURGICAL HISTORY Procedure Laterality Date COLONOSCOPY 07/18/14 EGD 07/18/14 EUSTACHIAN TUBOPLASTY LAP UMBILICAL HERNIA REPAIR FAMILY MEDICAL HISTORY: FAMILY HISTORY Problem Relation Age of On[place] other (bone cancer) Father 30 other (osteoarthritis) Father other (congenital extra vertebrae) Father other (headaches) Brother get (more content not included)... [facility] 09-03-2023 Miscellaneous Notes The following approved medication requests have been transmitted electronically. Requested Prescriptions Refused Prescriptions Disp Refills lamoTRIgine (LAMICTAL) 25 mg tablet [Pharmacy Med Name: LAMOTRIGINE 25MG TABS] 360 tablet 1 Sig: TAKE TWO TABLETS BY MOUTH TWICE A DAY (TAKE ALONG WITH 150MG TABLET) Refused By: JOHN MYLES Reason for Refusal: A Refill not appropriate John Myles APRN.DATA TYPIST Prescription Refill: Pharmacy requesting refill on medication marked discontinued Requested by: pharmacy Please E-Scribe Caller Contact Number: electronic Pharmacy Name: [facility] Number: [phone] Generic/ brand: Generic 30 or 90 day supply requested: 90 Last appointment: 10/25/22 Next Appointment: 10/22/[address] Mccain documented in this encounter [facility] 08-14-2023 Miscellaneous Notes The following approved medication requests have been transmitted electronically. Requested Prescriptions Signed Prescriptions Disp Refills levETIRAcetam XR (KEPPRA XR) 500 mg 24 hr tablet 360 tablet 3 Sig: Take 2 tablets by mouth two times a day. Take with the 750 mg tablet. 2500 mg BID Authorizing Provider: JOHN MYLES levETIRAcetam ER (KEPPRA XR) 750 mg 24 hr tablet 360 tablet 3 Sig: Take 2 tablets by mouth two times a day. Take with the 500 mg tabelts. Total daily dose 2500 mg BID Authorizing Provider: JOHN MYLES APRN.CNP Routed for new LEV prescription. From 07/25/2023 telephone encounter pt should be on LEV 2500/2500. Coni Mora RN Medication Concern Person Calling Ger's Pharmacist Name of medication Keppra XR 500mg Concern with medication Pharmacy purvis s2 sets of instructions, needs clarification. Patient of Dr. Mccain documented in this encounter [facility] 08-14-2023 Miscellaneous Notes The following approved medication requests have been transmitted electronically. Requested Prescriptions Signed Prescriptions Disp Refills levETIRAcetam ER (KEPPRA XR) 750 mg 24 hr tablet 360 tablet 3 Sig: Take 3 tablets by mouth two times a day. Authorizing Provider: JOHN MYLES levETIRAcetam XR (KEPPRA XR) 500 mg 24 hr tablet 90 tablet 3 Sig: Take 1 tablet by mouth once daily. Take with the 750 mg tablet. 2250 mg in the am and 2750 mg in the pm. Authorizing Provider: JOHN MYLES APRN.CNP Prescription Refill: Patient is . She is out of the 750 mg tablets and almost out of the 500 mg tabs. Requested by: patient Please E-Scribe Caller Contact Number: [phone] (home) Pharmacy Name: [facility] Pharmacy Number: [phone] Generic/ brand: generic 30 or 90 day supply requested: 90 Last appointment: 10/25/22 Next Appointment: Patient was transferred to schedulers. Patient of Dr. Mccain documented in this encounter [facility] 08-08-2023 Miscellaneous Notes The following approved medication requests have been transmitted electronically. Requested Prescriptions Signed Prescriptions Disp Refills lamoTRIgine (LAMICTAL) 150 mg tablet 180 tablet 1 Sig: take one tablet by mouth twice a day Authorizing Provider: JOHN MYLES APRN.CNP Prescription Refill: Requested by: pharmacy Please E-Scribe Caller Contact Number: Pharmacy Name: [facility] Number: [phone] Generic/ brand: 30 or 90 day supply requested: 90 Last appointment: 10/25/22 Next Appointment: none Patient of Dr. Mccain documented in this encounter [facility] 07-25-2023 Miscellaneous Notes Addended by: JOHN MYLES on: 07/25/2023 02:54 PM Modules accepted: Orders The following approved medication requests have been transmitted electronically. Requested Prescriptions Signed Prescriptions Disp Refills lamoTRIgine (LAMICTAL) 150 mg tablet 360 tablet 0 Sig: Take 2 tablets by mouth daily with breakfast AND 2 tablets every evening. Authorizing Provider: JOHN MYLES levETIRAcetam XR (KEPPRA XR) 500 mg 24 hr tablet 90 tablet 0 Sig: Take 1 tablet by mouth once daily. Take with the 750 mg tablet. 2250 mg in the am and 2750 mg in the pm. Authorizing Provider: JOHN MYLES APRN.DATA TYPIST Called pt, left detailed voicemail. Routed for updated prescription to be sent to pharmacy. Coni Mora RN Levels have further dropped would increase to LTG 300/300 & LEV 2500 mg BID John Myles APRN.CNP Pre- levels 11/08/2022: Lamotrigine- 3.1 Levetiracetam- 20.9 Pre- doses: LEV ER 1500/1500 LTG 100/100 Medication levels 02/06/2023: Lamotrigine- 2.4 Levetiracetam- 16.1 New medication doses: LEV ER 1500/2000 LTG 150/150 Medication levels 03/06/2023: Lamotrigine- 3.0 Levetiracetam- 16.5 New medication doses: LEV ER 1500/2000 LTG 200/200 Medication levels 04/24/2023: Lamotrigine- 2.4 (2.0-20.0) Levetiracetam- 14.1 (10.0-40.0) New medication doses: LTG 250/250 LEV ER 1999/1999 Medication levels 06/12/2023: Lamotrigine- 2.5 (2.0-20.0) Levetiracetam- 16.0 (10.0-40.0) New medication doses: LEV ER 2250/2250 LTG 250/300 Lab work drawn on 07/19/2023 at 1822. Routed for review and recommendation. Coni Mora RN OUTSIDE LAB REPORT FACILITY NAME [facility] PHONE/FAX [phone] COLLECTION DATE AND TIME: 1821 Uploaded to [employer] ] documented in this encounter [facility] 06-19-2023 Miscellaneous Notes The following approved medication requests have been transmitted electronically. Requested Prescriptions Signed Prescriptions Disp Refills folic acid 1 mg tablet 360 tablet 1 Sig: TAKE TWO TABLETS BY MOUTH TWICE A DAY Authorizing Provider: JOHN MYLES APRN.CNP Prescription Refill: Pharmacy deactivated script dated 2022 Requested by: pharmacy Please E-Scribe Caller Contact Number: electronic Pharmacy Name: [facility] Number: [phone] Generic/ brand: Generic 30 or 90 day supply requested: 90 Last appointment: 10/25/22 Next Appointment: none Patient of Dr. Mccain documented in this encounter [facility] 06-11-2023 Miscellaneous Notes The following approved medication requests have been transmitted electronically. Requested Prescriptions Signed Prescriptions Disp Refills levETIRAcetam XR (KEPPRA XR) 500 mg 24 hr tablet 180 tablet 1 Sig: Take 1 tablet by mouth twice daily. Authorizing Provider: JOHN MYLES APRN.CNP Prescription Refill: Requested by: patient Please Call in Caller Contact Number: [phone] (home) [facility] Number: [id number] Generic/ brand: generic 30 or 90 day supply requested: 90 Last appointment: 10/15/22 Next Appointment: none Patient of Dr. Mccain documented in this encounter [facility] 06-11-2023 Miscellaneous Notes Lab order form sent to pt e-mail as requested. Called pt, left voicemail that standing lab order form has been re- sent. Coni Mora RN ORDERS Person requesting order: Mirela Day Phone number: [phone] (home) Order being requested: lab order-never received in April 2023 Facility: [facility] Fax: Email: [email or web address] Patient of Dr. Mccain documented in this encounter [facility] 05-11-2023 Miscellaneous Notes Called pt, relayed recommendation below. Pt verbalized understanding. Coni Mora RN Both Levels have dropped would recommend to increase LTG to 200/250 for 1 week then 250/250 and increase LEV to 2000 mg BID Pt called back, she feels great- no seizures noted. Routed for review and recommendation of lab work- see below. Coni Mora RN Images from the original note were not included. Pre- levels 11/08/2022: Lamotrigine- 3.1 Levetiracetam- 20.9 Pre- doses: LEV ER 1500/1500 LTG 100/100 Medication levels 02/06/2023: Lamotrigine- 2.4 Levetiracetam- 16.1 New medication doses: LEV ER 1500/2000 LTG 150/150 Medication levels 03/06/2023: Lamotrigine- 3.0 Levetiracetam- 16.5 New medication doses: LEV ER 1500/2000 LTG 200/200 Called pt for an update, left voicemail. Coni Mora RN OUTSIDE LAB REPORT FACILITY NAME [facility] PHONE/FAX [phone] COLLECTION DATE AND TIME: 04/30/232007 Uploaded to [employer] documented in this encounter [facility] 04-19-2023 Miscellaneous Notes Lab order form faxed to [facility] (fax#: [phone]) via [employer]. Confirmation received. Called pt, left voicemail that lab order form was re-faxed. Coni Mora RN ORDERS Person requesting order: Mirela Day Phone number: [phone] (home) Order being requested: Standing orders for medication levels. Patient missed last scheduled lab and orders were cancelled. Needs new orders faxed. Please call patient when faxed Facility: [facility] Email: Patient of Dr. Mccain documented in this encounter [facility] 02-06-2023 Miscellaneous Notes Pre- levels 11/08/2022: Lamotrigine- 3.1 Levetiracetam- 20.9 Pre- doses: LEV ER 1500/1500 LTG 100/100 Medication levels 02/06/2023: Lamotrigine- 2.4 Levetiracetam- 16.1 New medication doses: LEV ER 1500/2000 LTG 150/150 Called pt, relayed recommendation below. Pt is agreeable. New medication changes sent to pt via e-mail as requested. Coni Mora RN Called pt, left voicemail. Coni Mora RN Would increase LTG to 100/150 for 1 week then 150 mg BID thereafter And LEV to 1500/2000 John Myles APRN.DATA TYPIST Images from the original note were not included. Pt is about 8 weeks . Pre- levels (11/08/2022): Lamotrigine- 3.1 Levetiracetam- 20.9 Pre- doses: LEV ER 1500 mg BID LTG 100 mg BID Current medication levels 02/06/2023 Lamotrigine- 2.4 Levetiracetam- 16.1 Routed for review and recommendation. Coni Mora RN OUTSIDE LAB REPORT FACILITY NAME [facility] PHONE/FAX [phone] COLLECTION DATE AND TIME: 02/01/23 172 Uploaded to [employer] documented in this encounter [facility] 01-19-2023 Miscellaneous Notes Spoke w/patient and provided recommendations She verbalizes understanding/agreement Patient requests to have lab work completed @ [facility] Lab requisition faxed to [facility] Received confirmation of transmission Анна Jade RN LEV and LTG both are the best medications to be on during . Need to start checking monthly levels. Orders placed. Pre- levels (11/08/2022): Lamotrigine 3.1 Levetiracetam 20.9 Pre- doses: LEV ER 1500 mg BID LTG 100 mg BID Updated evidence based recommendations regarding folic acid is that 2 mg daily + vitamin is adequate. She can drop down folic acid dose to 2 mg daily. Would recommend talking with SMALL ENGINE TECHNICIAN regarding Zoloft during . Would continue for now until talking with them. Chelsea Overton APRN.GUILLERMINA VV on 10/25/2022 with Kendy Sue PLAN: - LABS: none - Continue LEV ER 1500mg BID. Rx escripted. - Continue LTG 100mg BID. Rx escripted. - Continue FA 2 mg BID + vitamin (not on BC) - Restart Zoloft 50mg daily over 2 weeks. Rx escripted. - Alert SMALL ENGINE TECHNICIAN of restarting Zoloft - she will be making an appointment soon - Establish with counselor provided, or call if other resources needed. - Psychiatry consult in the future if issues with Zoloft (tolerated in the past) - Continue to avoid seizure triggers, including sleep deprivation - Call with any seizure activity or if she becomes - Return visit with Epilepsy in 12 months or sooner if needed Lab work done on 11/08/2022. Called pt, she is 5 weeks - I feel great. No recent seizures. AED's verified LEV ER 1500/1500 LTG 100/100 Pt also taking: FA 2mg BID and vitamin Zoloft 50mg prescribed at [facility]- pt asking if this is okay to continue to take? Routed for review and recommendation. Coni Mora RN Medication Concern Person Calling Mirela Day Name of medication AEDs Concern with medication: Patient states she is , would like to discuss mediations. Patient of Dr. Mccain documented in this encounter [facility] 12-20-2022 Miscellaneous Notes The following approved medication requests have been transmitted electronically. Requested Prescriptions Signed Prescriptions Disp Refills lamoTRIgine (LAMICTAL) 100 mg tablet 180 tablet 3 Sig: TAKE ONE TABLET BY MOUTH TWICE A DAY Authorizing Provider: JOHN MYLES APRN.CNP documented in this encounter [facility] 10-25-2022 History of Presen t illness Narrative [facility] FOLLOW UP VIRTUAL VISIT This is a virtual visit using [employer] video visit. It required patient-provider interaction for the medical decision making as documented below. CHIEF COMPLAINT: Patient presents with: Follow Up Epilepsy Depression HISTORY SINCE LAST VISIT: Mirela Day is a 32 year old female who is diagnosed with generalized epilepsy. She is an established patient of Dr. Mccain, last seen by him on 01/22/2020, and most recently seen by me on September 28, 2021. Seizure medication: LTG 100mg BID (added after seizure 03/2021) LEV ER 1500mg BID (decreased after addition of LTG) Folic acid 2mg BID, not on control Side effects: none Seizures: No seizures since the last visit. Her last seizure was a GTC +UI lasting 2 minute on 04/04/2021 ad nocturnal GTC +TB in March 2013. Other health: She has been on Zoloft after delivery of Luke for 4 months for depression, but has been off for >1 year. She notes her depression has returned with possibly anxiety also since July 2022. She becomes tearful. She has counselors available through work, which she plans to look into. No SI. She is open to restarting Zoloft. SE in the past was dry mouth. 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 She had her first GTC at age 15 and then another at age 17. She was switched to LTG at the age of 18 because of weight gain in the setting of VPA use and had a breakthrough GTC 2 wks off VPA. She had a few more breakthrough GTCs despite increasing dose of LTG so was switched to VPA ER 100 mg/d in Aug, 2009 (at the age of 19) and remained seizure free on this till nov, 2012. Because of 2 breakthrough GTCs in nov and March 2013, her VPA was increased to 2000 mg QD. She was first seen by Dr Mahoney in April, at which time it was decided to give er a trial of LEV. From 2012 till 2013, she was on both VPA and LEV but because of side effects it was eventually decided to do LEV monotherapy. This transition happened sometime within the last 6 months of 2013 but because of increasing side effects, she was switched to XR LEV 10/2014. 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 Continues at the same position. Driving: Yes, returned to driving 3 months after seizure (addition of LTG) MEDICATIONS: Current Outpatient Medications Medication Sig lamoTRIgine (LAMICTAL) 100 mg tablet Take 1 tablet by mouth twice daily. folic acid 1 mg tablet TAKE TWO TABLETS BY MOUTH TWICE A DAY levETIRAcetam ER (KEPPRA XR) 750 mg 24 hr tablet Take 2 tablets by mouth twice daily. calcium carbonate/vitamin D2 (CALCIUM + VITAMIN D ORAL) Take 1 tablet by mouth once daily. biotin/folic ac/vit Bcomp,C/Zn (KQIXLS-QN-OEA B COMP & C-ZINC ORAL) Take by mouth. vitamin b complex (SUPER QUINTS B-50) tab Take 1 tablet by mouth once daily. No current facility-administered medications for this visit. PAST MEDICAL HISTORY: PAST MEDICAL HISTORY Diagnosis Date Depression Diabetes (HCC) Generalized nonconvulsive epilepsy (HCC) Impaired fasting glucose Obesity 2/2 to depakote PAST SURGICAL HISTORY: PAST SURGICAL HISTORY Procedure Laterality Date COLONOSCOPY 07/18/14 EGD 07/18/14 EUSTACHIAN TUBOPLASTY LAP UMBILICAL HERNIA REPAIR FAMILY MEDICAL HISTORY: FAMILY HISTORY Problem Relation Age of Onset other (bone cancer) Father 30 other (osteoarthritis) Father other (congenital extra vertebrae) Father other (headaches) Brother gets care here in pain center SOCIAL HISTORY: Social History Tobacco Use Smoking status: Never Smokeless tobacco: Never Substance Use Topics Alcohol use: No Drug use: No GENERAL EXAMINATION: Virtual visit, no formal exam performed Alert, answering questions appropriately, fluent speech IMPRESSION: Mirela Day is a 32 year old female with history of generalized epilepsy. She gave to a healthy baby boy on 01/24/2021. She had a recent GTC in the setting of sleep deprivation in March 2021. Prior to this her last seizure was March 2013. Lamictal was added to Keppra, and Keppra was decreased to her pre- dose. She is now on combination Keppra XR 1500mg BID and Lamictal 100mg BID without any seizures or side effects. She started Zoloft for mood changes , but was only taking for 4 months, and has noticed return of depression and possibly anxiety since July 2022. PLAN: - LABS: none - Continue LEV ER 1500mg BID. Rx escripted. - Continue LTG 100mg BID. Rx escripted. - Continue FA 2 mg BID + vitamin (not on BC) - Restart Zoloft 50mg daily over 2 weeks. Rx escripted. - Alert SMALL ENGINE TECHNICIAN of restarting Zoloft - she will be making an appointment soon - Establish with counselor provided, or call if other resources needed. - Psychiatry consult in the future if issues with Zoloft (tolerated in the past) - Continue to avoid seizure triggers, including sleep deprivation - Call with any seizure activity or if she becomes - Return visit with Epilepsy in 12 months or sooner if needed I spent a total of 25 minutes on the date of the service which included preparing to see the patient, [id number] patient care, completing clinical documentation, and ordering medications, tests, or procedures. Kendy Sue PA-C October 25, 2022 documented in this encounter [facility] 06-16-2022 Miscellaneous Notes The following approved medication requests have been transmitted electronically. 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 [facility] 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)- Primary Generalized convulsive epilepsy with intractable epilepsy [facility] [place] [facility] Diagnosis 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 [facility] [place] [facility] Diagnosis 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 [facility] [place] [facility] Diagnosis 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 [facility] [place] [facility] Diagnosis 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 [facility] [place] [facility] Diagnosis 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 [facility] [place] [facility] Diagnosis 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 [facility] [place] [facility] Diagnosis Anxiety and depression Dysthymic disorder 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 documented in this encounter [facility] Summary Purpose Family History No Family History Records FoundNo Family History Records FoundNo Family History Records FoundNo Family History Records FoundNo Family History Records Found Advance Directives No Advanced Directives Records FoundNo Advanced Directives Records FoundNo Advanced Directives Records FoundNo Advanced Directives Records FoundNo Advanced Directives Records Found Additional Source Comments INFORMATION SOURCE (unrecogn ized section and content) DATE CREATED AUTHOR 05/15/2018 [facility] DATE CREATED AUTHOR AUTHOR'S ORGANIZ ATION 07/29/2019 [facility] DATE CREATED AUTHOR AUTHOR'S ORGANIZ ATION 09/07/2020 [facility] DATE CREATED AUTHOR AUTHOR'S ORGANIZ ATION 05/04/2023 [facility] DATE CREATED AUTHOR AUTHOR'S ORGANIZ ATION 03/16/2024 [facility] Source Comments (unrecognize d section and content) In the event this informatio n is protected by the Federal Confidentiality of Alcohol and Drug Abuse Patient Records regulations: The Federal rules restrict any use of the information to criminally investigate or prosecute any alcohol or drug abuse patient.[facility] the event this information is protected by the Federal Confidentiality of Alcohol and Drug Abuse Patient Records regulations: The Federal rules restrict any use of the information to criminally investigate or prosecute any alcohol or drug abuse patient.[facility] the event this information is protected by the Federal Confidentiality of Alcohol and Drug Abuse Patient Records regulations: The Federal rules restrict any use of the information to criminally investigate or prosecute any alcohol or drug abuse patient.[facility] the event this information is protected by the Federal Confidentiality of Alcohol and Drug Abuse Patient Records regulations: The Federal rules restrict any use of the information to criminally investigate or prosecute any alcohol or drug abuse patient.[facility] the event this information is protected by the Federal Confidentiality of Alcohol and Drug Abuse Patient Records regulations: The Federal rules restrict any use of the information to criminally investigate or prosecute any alcohol or drug abuse patient.[facility] the event this information is protected by the Federal Confidentiality of Alcohol and Drug Abuse Patient Records regulations: The Federal rules restrict any use of the information to criminally investigate or prosecute any alcohol or drug abuse patient.[facility] the event this information is protected by the Federal Confidentiality of Alcohol and Drug Abuse Patient Records regulations: The Federal rules restrict any use of the information to criminally investigate or prosecute any alcohol or drug abuse patient.[facility] the event this information is protected by the Federal Confidentiality of Alcohol and Drug Abuse Patient Records regulations: The Federal rules restrict any use of the information to criminally investigate or prosecute any alcohol or drug abuse patient.[facility] the event this information is protected by the Federal Confidentiality of Alcohol and Drug Abuse Patient Records regulations: The Federal rules restrict any use of the information to criminally investigate or prosecute any alcohol or drug abuse patient.[facility] the event this information is protected by the Federal Confidentiality of Alcohol and Drug Abuse Patient Records regulations: The Federal rules restrict any use of the information to criminally investigate or prosecute any alcohol or drug abuse patient.[facility] the event this information is protected by the Federal Confidentiality of Alcohol and Drug Abuse Patient Records regulations: The Federal rules restrict any use of the information to criminally investigate or prosecute any alcohol or drug abuse patient.[facility] the event this information is protected by the Federal Confidentiality of Alcohol and Drug Abuse Patient Records regulations: The Federal rules restrict any use of the information to criminally investigate or prosecute any alcohol or drug abuse patient.[facility] the event this information is protected by the Federal Confidentiality of Alcohol and Drug Abuse Patient Records regulations: The Federal rules restrict any use of the information to criminally investigate or prosecute any alcohol or drug abuse patient.[facility] the event this information is protected by the Federal Confidentiality of Alcohol and Drug Abuse Patient Records regulations: The Federal rules restrict any use of the information to criminally investigate or prosecute any alcohol or drug abuse patient.[facility]In the event this information is protected by the Federal Confidentiality of Alcohol and Drug Abuse Patient Records regulations: The Federal rules restrict any use of the information to criminally investigate or prosecute any alcohol or drug abuse patient.[facility] HospitalIn the event this information is protected by the Federal Confidentiality of Alcohol and Drug Abuse Patient Records regulations: The Federal rules restrict any use of the information to criminally investigate or prosecute any alcohol or drug abuse patient.[facility] the event this information is protected by the Federal Confidentiality of Alcohol and Drug Abuse Patient Records regulations: The Federal rules restrict any use of the information to criminally investigate or prosecute any alcohol or drug abuse patient.[facility] Reason for Visit (unrecogniz ed section and content) Reason Comments Refill Request Reason Comments Follow Up Epilepsy Depression Reason Comments Medication Problem AEDs - Reason Comments Outside Lab Results [facility] spital-Lamotrigine/Keppra Reason Comments Orders Labs Reason Comments Outside Labs Results [facility] ospt/LTG/Keppra Reason Comments Orders lAb order Reason Onset Date Comments Refill Request 06/11/2023 Reason Comments Outside Lab Results [facility]-kep pra, lamotrigine Reason Onset Date Comments Refill Request 08/14/2023 Reason Comments Medication Problem [facility]ra [facility] Teams (unrecognized sec tion and content) Maintenance Services Dispatcher Relationship Specialty Start Date End Date Neris Santos MD PCP - General Family Practice 04/04/13 Maintenance Services Dispatcher Relationship Specialty Start Date End Date Neris Santos MD PCP - General Family Medicine 04/04/13 Maintenance Services Dispatcher Relationship Specialty Start Date End Date Neris Santos MD PCP - General Family Medicine 04/04/13 Maintenance Services Dispatcher Relationship Specialty Start Date End Date Neris Santos MD PCP - General Family Medicine 04/04/13 Maintenance Services Dispatcher Relationship Specialty Start Date End Date Neris Santos MD PCP - General Family Medicine 04/04/13 Maintenance Services Dispatcher Relationship Specialty Start Date End Date Neris Santos MD PCP - General Family Medicine 04/04/13 Maintenance Services Dispatcher Relationship Specialty Start Date End Date Neris Santos MD PCP - General Family Medicine 04/04/13 Maintenance Services Dispatcher Relationship Specialty Start Date End Date Neris Santos MD PCP - General Family Medicine 04/04/13 Maintenance Services Dispatcher Relationship Specialty Start Date End Date Neris Santos MD PCP - General Family Medicine 04/04/13 Maintenance Services Dispatcher Relationship Specialty Start Date End Date Neris Santos MD PCP - General Family Medicine 04/04/13 Maintenance Services Dispatcher Relationship Specialty Start Date End Date Neris Santos MD PCP - General Family Medicine 04/04/13 Maintenance Services Dispatcher Relationship Specialty Start Date End Date Neris Santos MD PCP - General Family Medicine 04/04/13 Maintenance Services Dispatcher Relationship Specialty Start Date End Date Neris Santos MD PCP - General Family Medicine 04/04/13 FOR RECORDS PERTAINING TO PATIENTS WHO ARE OR HAVE BEEN ENROLLED IN A CHEMICAL DEPENDENCY/SUBSTANCEABUSE PROGRAM, SOME INFORMATION MAY BE OMITTED. This clinical summary was aggregated from multiple sources. Caution should be exercised in using it in the provision of clinical care. This summary normalizes information from multiple sources, and as a consequence, information in this document may materially change the coding, format and clinical context of patient data. In addition, data may be omitted in some cases. CLINICAL DECISIONS SHOULD BE BASED ON THE PRIMARY CLINICAL RECORDS. [employer] [facility] provides no warranty or guarantee of the accuracy or completeness of information in this document.
[2024-08-06 10:56] LABS: Vitamin B12 473 pg/mL (211-911); Vitamin D,25 Hydroxy 29.8 ng/mL
[2024-08-06 11:02] LABS: T4 Free Direct 0.99 ng/dL (0.76-1.46)
== END | disposition home or self-care (01) ==
LOC: PAVLAB 09:35
PROVIDERS: PCP Family Medicine; Referring Provider Nurse Practitioner Family; Visit Provider Nurse Practitioner Family
DX: Z13.29 Encounter for screening for other suspected endocrine disorder (principal)
CPT/HCPCS: 36415; 82306; 82607; 84439; 84443

== ENCOUNTER 2025-05-21 18:00 | Outpatient (RCR) | payer OTHER, SELFPAY ==
--- NOTE | 2025-04-20 18:57 | HP.PTEVAL_ITS ---
Patient's Visit Information Visit Information Visit Information: MIRELA DAY is a 34 year old F referred to Physical Therapy by Dr. Beatriz De La Garza MD with a diagnosis of Bilateral Hip Pain. Date of Evaluation: 04/20/25 Physical Therapist: April Zavala DPT Visit Plan Frequency: 2x /Week Duration: 3 Weeks Plan: Focus on LE and core strength/stabilization- decrease pelvic sway HEP Given IE: SLS, TA contraction, bridge Subjective Subjective: Patient reports that since she has had her youngest 18 month old- she has had a lot of popping left hip more than right- she tosses and turns all night long- she has ignored it but it continues to stay the same. The left hip is worse and feels unstable. Sometimes painful dull and achy- it will pop and its almost a relief. It comes and goes. Worst: 5/10 Agg: laying down or sitting with her kids on the floor leaning on the left side- direct pressure- lots of desk work, or walking all day long. Eases: massage gun on the outside. The pain is on the outside and runs down to the knee. No pain that radiates to the back. When its really tight and sore it will cause N/T in the toes. 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 Sleep: does wake her up and keep her from sleeping. 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 They are not planning on having anymore kids. Vaginal Births (8 lbs 2 oz and 8 lbs 10 oz). PMHx: minor scoliosis, epilepsy, sciatica Meds: Progesterone control, zoloft, kepra, singulair, omictol. Objective Objective: Posture: forward head, rounded shoulders- can correct but does not maintain Gait: increased pelvic sway SLS: 3 seconds- pelvic drop- Trendelenburg ROM: WNL in all planes- Lumbar: pain with forward flexion, sidebend left, rotation left Strength: Core: fair minus, Hip: Left: flexion: 3+/5, extn: 3+/5, Abd: 3+/5, IR: 4/5, ER: 3/5, Knee: 5/5, Ankle: 5/5 Flex: HS: severe, Gastroc: severe Special Tests L Hip Quadrant - Intraarticular Pathology: Positive L Hip MOLLY - Intraarticular Pathology: Positive L Hip FADDIR - Labrum: Positive L Hip Trendelenberg - Glut Medius: Positive Balance/Special Test Scores Lower Extremity Functional Score: 52 Goals Goal 1:: Patient will be I with HEP and progression Goal Time Frame: 4-6 Weeks Goal 2:: Patient will SLS without pelvic sway for 10 sec Goal Time Frame: 4-6 Weeks Goal 3:: Patient will maintain proper posture t/o tx session to demo increased core s/s Goal Time Frame: 4-6 Weeks Goal 4:: Patient will report no pain for 1 week Goal Time Frame: 4-6 Weeks Rehabilitation Potential Physical Therapy Diagnosis: Patient presents with hypomobility- she has decreased LE and core strength/stabilization, flex and muscular endurance leading to abnormal gait and increased pain with ADL's. Rehabilitation Potential: Good Anticipated Interventions Patient/Client Instruction: Educate patient on: Benefits of Fitness Program Therapeutic Exercise to Include: Strength training, Balance training, Coordination, Agility training, Body mechanics, Postural training, Flexibilty training, Gait and locomotor training, Neuromotor development, Dynamic Lumbar Stabilization and Scapular Strength/Stabilization TENS: Yes Cryotherapy (ice pack, ice massage): Yes Thermo therapy (hot pack): Yes Ultrasound (thermal/non thermal): Yes Text: Thank you for the opportunity to evaluate your patient. For Medicare and Medicare HMO plans, please review the plan of care and approve it. It will need to be FAXED BACK to us at [phone] for Medicare purposes. For Medicare only, by signing this I certify the plan of care. Please let me know if there are questions or concerns regarding this plan of care. Physician Signature: Date:
--- NOTE | 2025-05-21 18:46 | HP.PTDCSUM ---
Discharge Summary D/C summary: It has been my pleasure to treat MIRELA DAY referred by Dr. Beatriz De La Garza MD, with the diagnosis of Bilateral Hip Pain for a total of 9 visit(s). Discharge Date: 05/21/25 Please see the following information for a summary of their discharge status. Subjective Subjective: Better. Not popping out as much. Off floor easier. Sleep is better, Hip not a problem. Not waking up with hip pain, sleeping in bed now. Acticvities normal. Steps worse at end of day bu ttolerable. No f/u with doctor. Pain L hip: Pain Intensity (Out of 10): 0 R hip: Pain Intensity (Out of 10): 0 Overall Improvement % Improvement: 65 Objective Objective/Function: Slight L trendelenberg is obvious with ambulation, SLS harder than R but can gt 10 seconds. Progressing nicely albeit slow towards goals. Does not want more therapy but willing to continue HEP Goals Goal 1:: Patient will be I with HEP and progression Goal Progress: Goal Met Goal 2:: Patient will SLS without pelvic sway for 10 sec Goal Progress: Goal Met Goal 3:: Patient will maintain proper posture t/o tx session to demo increased core s/s Goal Progress: Goal Met Goal 4:: Patient will report no pain for 1 week Goal Progress: Progressing Plan Plan: d/c to HEP D/C Information Discharge Comments: Will continue via Home strength d/c sentence: If there are questions or concerns regarding this patient's physical therapy, please feel free to call me at [phone]. Thank you for the referral of this patient. Sincerely, Killian Reyes, DPT, OCS, CSCS Balance/Gait/Functional tests Balance/Special Test Scores Lower Extremity Functional Score: 52 Improvement % Improvement: 65
== END 2025-05-21 19:00 | disposition home or self-care (01) ==
LOC: PT 18:00
PROVIDERS: PCP Family Medicine; Referring Provider Family Medicine; Visit Provider Family Medicine
DX: M70.62 Trochanteric bursitis, left hip (principal)
CPT/HCPCS: 97110; 97162; 97164

== ENCOUNTER → 2025-09-16 | Outpatient (CLI) | payer OTHER, SELFPAY ==
--- NOTE | 2025-09-16 13:58 | US_ITS ---
PROCEDURE: BREAST LIMITED UNILATERAL 09/16/2025 REASON FOR EXAM: F, Age 35 y/o , BREAST LUMP COMPARISON: Prior mammogram done earlier in the day.. TECHNIQUE: Procedure Code: USBRSTLIMIT Modality: US Procedure: BREAST LIMITED UNILATERAL. The lower outer quadrant of the right breast was examined with ultrasound. FINDINGS: No sonographic abnormality is seen. US/Breast Limited Unilateral IMPRESSION: No sonographic abnormality is seen. BI-RADS 1: NEGATIVE RECOMMENDATION: Routine annual follow-up in 1 Year Reading Location: [place] [id number]
--- NOTE | 2025-09-16 13:58 | BI_ITS ---
EXAM: DIAG MAMM W/CAD, BILAT 09/16/2025 CLINICAL HISTORY: F, Age 35 y/o , BREAST LUMP. Lower outer quadrant of the right breast. Occasional pain. TECHNIQUE: Procedure Code: [id number] Modality: MG Procedure: DIAG MAMM W/CAD, BILAT. COMPARISON: Baseline study. FINDINGS: TISSUE DENSITY: There are scattered areas of fibroglandular density. Bilateral Breast Mammographic Findings: No significant masses, calcifications or other abnormalities are identified. No suspicious masses, areas of developing architectural distortion, or suspicious calcifications. BI/DIAG MAMM W/CAD, BILAT IMPRESSION: Unremarkable diagnostic mammogram. Targeted sonographic correlation of the rig ht breast is recommended. OVERALL FINAL ASSESSMENT BI-RADS 0: INCOMPLETE - NEED ADDITIONAL IMAGING EVALUATION. RECOMMENDATION: Ultrasound Recommended Additional Recommendation none A letter with findings and recommendations will be mailed to the patient. Reading Location: [place] [id number]
== END | disposition home or self-care (01) ==
PROVIDERS: PCP Family Medicine; Referring Provider Advanced Practice Midwife; Visit Provider Advanced Practice Midwife
DX: N63.13 Unspecified lump in the right breast, lower outer quadrant (principal)
CPT/HCPCS: 76642; 77062; 77066; G0279